=== PATIENT | male | born 1960 | race Caucasian/White ===

== ENCOUNTER 2019-01-31 10:27 | Observation (INO) ==
[2019-01-31 11:28] LABS: Basophils % 0.6 % (0.0-0.8); Eosinophils # 0.1 10*3/uL (0.0-0.87); Eosinophils % 1.9 % (0.00-10.9); Hematocrit 36.3 VOL% (42.0-52.0); Hemoglobin 11.8 GM/DL (14.0-18.0); Immature Granulocytes % 0.1 %; Immature Granulocytes Absolute 0.01 #; Lymphocytes % 14.1 % (21.2-54.2); Mean Corpuscular HGB Conc 32.5 GM/DL (32-36); Mean Corpuscular Volume 86.8 FL (87-102); Mean Platelet Volume 10.8 FL (9.6-12.0); Monocytes % 8.6 % (1.7-12.7); Neutrophils % 74.7 % (38.7-73.9); Platelet Count 149 T/CUMM (130-400); Red Blood Count 4.18 MC/CUMM (3.8-5.5); Red Cell Distribution Width 12.8 % (9.3-17.3); White Blood Count 6.9 T/CUMM (4-12)
[2019-01-31 11:47] LABS: Albumin 2.6 G/DL (3.4-5.0); Bilirubin,Total 0.6 MG/DL (0.2-1.0); Calcium 8.7 MG/DL (8.5-10.1); Total Protein 6.6 G/DL (6.4-8.3)
[2019-01-31 12:04] LABS: Apearance,Urine CLEAR (Clear); Bilirubin,Urine Negative (Negative); Blood, Urine Moderate mg/dL (Negative); Glucose,Urine (UA) Negative (Negative); Ketones,Urine Negative (Negative); Mucus,Urine Occasional /LPF (Occasional); Nitrite,Urine Negative (Negative); Protein,Urine 100 MG/DL; RBC,Urine 1 /HPF (0-4); Sperm,Urine Occasional /HPF (Negative); Squamous Epithelial Cell,Urine Occasional /HPF (0-10); Urine Color Yellow (Yellow); Urine Specific Gravity 1.014 (1.001-1.035); Urine Urobilinogen < 2.0 EU/DL (0.2-1.0); WBC,Urine <1 /HPF (0-6)
[2019-01-31] MEDS ORDERED: ACETAMINOPHEN 325 MG TABLET PO PRN (13:20)
[2019-01-31] MEDS ORDERED: FUROSEMIDE 40 MG/4 ML VIAL IV STA (13:20)
[2019-01-31] MEDS ORDERED: ONDANSETRON 4 MG/2 ML VIAL IV PRN (13:20)
[2019-01-31 14:06] LABS: PT Patient Result 10.8 SECS (9.6-12.2)
[2019-01-31] MEDS ORDERED: ALBUMIN 25% 12.5 GM in PREMIX 1 EACH IV ONE (15:07)
[2019-01-31] MEDS ORDERED: ALBUMIN 25% 12.5 GM/50 ML VIAL IV ONE (15:08)
[2019-01-31] MEDS: SPIRONOLACTONE 50 MG TABLET PO SCH (20:51)
[2019-01-31] MEDS: glipiZIDE 5 MG TABLET PO SCH (20:52)
[2019-01-31] MEDS: GABAPENTIN 300 MG CAPSULE PO SCH (20:55)
[2019-01-31] MEDS: DOCUSATE SODIUM 100 MG CAPSULE PO SCH (20:55)
[2019-01-31] MEDS: FUROSEMIDE 20 MG TABLET PO SCH (20:55)
[2019-01-31] MEDS ORDERED: ATORVASTATIN 20 MG TABLET PO SCH (21:00)
[2019-01-31] MEDS ORDERED: LOSARTAN 25 MG TABLET PO SCH (21:00)
[2019-01-31] MEDS ORDERED: ASPIRIN 325 MG TABLET PO SCH (21:00)
[2019-01-31] MEDS ORDERED: VENLAFAXINE 75 MG TABLET PO SCH (21:00)
[2019-02-01 05:08] LABS: Basophils # 0.1 10*3/uL (0.0-0.2); Basophils % 0.7 % (0.0-0.8); Eosinophils # 0.2 10*3/uL (0.0-0.87); Eosinophils % 2.9 % (0.00-10.9); Hematocrit 35.4 VOL% (42.0-52.0); Hemoglobin 11.6 GM/DL (14.0-18.0); Immature Granulocytes % 0.3 %; Immature Granulocytes Absolute 0.02 #; Lymphocytes # 1.2 10*3/uL (1.4-4.0); Lymphocytes % 17.4 % (21.2-54.2); Mean Corpuscular HGB Conc 32.8 GM/DL (32-36); Mean Corpuscular Volume 86.1 FL (87-102); Mean Platelet Volume 10.5 FL (9.6-12.0); Monocytes % 11.4 % (1.7-12.7); Neutrophils % 67.3 % (38.7-73.9); Platelet Count 151 T/CUMM (130-400); Red Blood Count 4.11 MC/CUMM (3.8-5.5); Red Cell Distribution Width 12.4 % (9.3-17.3)
[2019-02-01 05:34] LABS: Calcium 8.3 MG/DL (8.5-10.1); Osmolality,Calculated 289.1 MOS/KG (273-304)
[2019-02-01 07:56] VITALS: BP 167/98
[2019-02-01] MEDS: FUROSEMIDE 20 MG TABLET PO SCH (08:20)
[2019-02-01] MEDS: GABAPENTIN 300 MG CAPSULE PO SCH (08:20)
[2019-02-01] MEDS: DOCUSATE SODIUM 100 MG CAPSULE PO SCH (08:21)
[2019-02-01] MEDS: glipiZIDE 5 MG TABLET PO SCH (08:21)
[2019-02-01] MEDS: SPIRONOLACTONE 50 MG TABLET PO SCH (08:21)
[2019-02-01] MEDS ORDERED: PANTOPRAZOLE 40 MG TABLET PO SCH (09:00)
== END 2019-02-01 09:02 | disposition home or self-care (01) ==
LOC: N.ED 10:27 → N.EDINP 10:27 → N.2W 15:22
PROVIDERS: ADMIT Family Medicine; ATTEND Family Medicine

== ENCOUNTER 2019-10-08 18:13 | Inpatient (IN) ==
[2019-10-08] MEDS ORDERED: PANTOPRAZOLE 40 MG VIAL IV STA (20:36)
[2019-10-08] MEDS ORDERED: ONDANSETRON 4 MG/2 ML VIAL IV STA (20:36)
[2019-10-08] MEDS ORDERED: FUROSEMIDE 40 MG/4 ML VIAL IV STA (20:37)
[2019-10-08 21:07] LABS: Basophils # 0.1 10*3/uL (0.0-0.2); Basophils % 0.5 % (0.0-0.8); Eosinophils # 0.2 10*3/uL (0.0-0.87); Eosinophils % 2.4 % (0.00-10.9); Hematocrit 39.9 VOL% (42.0-52.0); Immature Granulocytes % 0.4 %; Immature Granulocytes Absolute 0.04 #; Lymphocytes % 9.7 % (21.2-54.2); Mean Corpuscular HGB Conc 32.6 GM/DL (32-36); Mean Corpuscular Volume 83.3 FL (87-102); Mean Platelet Volume 9.5 FL (9.6-12.0); Platelet Count 165 T/CUMM (130-400); Red Blood Count 4.79 MC/CUMM (3.8-5.5); Red Cell Distribution Width 14.6 % (9.3-17.3); White Blood Count 10.2 T/CUMM (4-12)
[2019-10-08 21:27] LABS: Alanine Aminotransferase 60 U/L (16-61); Albumin 2.2 G/DL (3.4-5.0); Alkaline Phosphatase 170 U/L (45-117); Amylase 83 U/L (25-115); Aspartate Amino Transferase 52 U/L (0-37); Blood Urea Nitrogen 28 MG/DL (7-18); Calcium 7.9 MG/DL (8.5-10.1); Estimated Glom Filtration Rate 55 ML/MIN; Glucose 295 MG/DL (74-106); Osmolality,Calculated 293.5 MOS/KG (273-304); Total Protein 4.9 G/DL (6.4-8.3)
[2019-10-08] MEDS ORDERED: PIPERACILLIN/TAZOBACTAM 3,375 MG in SODIUM CHLORIDE 0.9% 100 ML IV STA (22:49)
[2019-10-08] MEDS ORDERED: ZALEPLON 5 MG CAPSULE PO PRN (22:50)
[2019-10-08] MEDS ORDERED: DEXTROSE 50% 25 GM/50 ML VIAL IV PRN (22:50)
[2019-10-08] MEDS ORDERED: ONDANSETRON 4 MG/2 ML VIAL IV PRN (22:50)
[2019-10-08] MEDS ORDERED: ACETAMINOPHEN 325 MG TABLET PO PRN (22:50)
[2019-10-08] MEDS ORDERED: DOCUSATE SODIUM 100 MG CAPSULE PO PRN (22:50)
[2019-10-08] MEDS ORDERED: diphenhydrAMINE CAP 25 MG CAPSULE PO PRN (22:50)
[2019-10-08] MEDS ORDERED: ALUMINUM/MAGNES/SIMETH MAX STR 30 ML UDCUP PO PRN (22:50)
[2019-10-08] MEDS ORDERED: PROMETHAZINE 25 MG TABLET PO PRN (22:50)
[2019-10-08] MEDS ORDERED: hydrALAZINE 20 MG/1 ML VIAL IV PRN (22:50)
[2019-10-08] MEDS ORDERED: GLUCAGON 1 MG VIAL IM PRN (22:50)
[2019-10-08] MEDS ORDERED: NICOTINE 21 MG/24 HR PATCH TRANSDERM PRN (22:50)
[2019-10-08] MEDS ORDERED: guaiFENesin/DM ER 600-30 MG TABLET PO PRN (22:50)
[2019-10-08] MEDS ORDERED: ALBUTEROL 2.5 MG/3 ML NEB RESP TX PRN (22:50)
[2019-10-08 23:02] LABS: Apearance,Urine CLEAR (Clear); Bilirubin,Urine Negative (Negative); Blood, Urine Moderate mg/dL (Negative); Glucose,Urine (UA) >=500 mg/dL (Negative); Hyaline Casts,Urine 1 /LPF (0-3); Ketones,Urine Negative (Negative); Mucus,Urine Occasional /LPF (Occasional); Nitrite,Urine Negative (Negative); Protein,Urine Negative; RBC,Urine 20 /HPF (0-4); Squamous Epithelial Cell,Urine Occasional /HPF (0-10); Urine Color Yellow (Yellow); WBC,Urine 1 /HPF (0-6)
[2019-10-09] MEDS: LACTULOSE 20 GM/30 ML UDCUP PO SCH ×7 (01:28→21:02)
[2019-10-09 02:19] LABS: Basophils # 0.1 10*3/uL (0.0-0.2); Basophils % 0.7 % (0.0-0.8); Eosinophils # 0.3 10*3/uL (0.0-0.87); Eosinophils % 2.8 % (0.00-10.9); Hematocrit 37.3 VOL% (42.0-52.0); Hemoglobin 12.1 GM/DL (14.0-18.0); Immature Granulocytes % 0.3 %; Immature Granulocytes Absolute 0.03 #; Lymphocytes # 1.4 10*3/uL (1.4-4.0); Lymphocytes % 12.7 % (21.2-54.2); Mean Corpuscular HGB Conc 32.4 GM/DL (32-36); Mean Corpuscular Volume 84.6 FL (87-102); Mean Platelet Volume 9.8 FL (9.6-12.0); Monocytes % 12.4 % (1.7-12.7); Neutrophils % 71.1 % (38.7-73.9); Platelet Count 144 T/CUMM (130-400); Red Blood Count 4.41 MC/CUMM (3.8-5.5); Red Cell Distribution Width 14.6 % (9.3-17.3); White Blood Count 10.7 T/CUMM (4-12)
[2019-10-09 02:52] LABS: Bilirubin,Total 1.1 MG/DL (0.2-1.0); Calcium 8.1 MG/DL (8.5-10.1); Osmolality,Calculated 287.7 MOS/KG (273-304); Total Protein 5.2 G/DL (6.4-8.3)
[2019-10-09] MEDS: INSULIN LISPRO 100 UNIT/ML SUBCUT SCH ×4 (08:30→22:14)
[2019-10-09] MEDS ORDERED: FUROSEMIDE 80 MG TABLET PO SCH (09:00)
[2019-10-09] MEDS: ENOXAPARIN 40 MG/0.4 ML SYRINGE SUBCUT SCH (10:16)
[2019-10-09] MEDS: cefTRIAXone 1,000 MG in SYRINGE 1 EACH IV SCH (10:18)
[2019-10-09] MEDS: metroNIDAZOLE INJ 250 MG in IV BAG 1 EACH IV SCH ×2 (10:30→17:02)
[2019-10-09 14:22] LABS: CKMB % 4.3 %; Troponin I 0.295 NG/ML (0.00-0.045)
[2019-10-09] MEDS: glyBURIDE 2.5 MG TABLET PO SCH (17:02)
[2019-10-09] MEDS: VENLAFAXINE 75 MG TABLET PO SCH (17:02)
[2019-10-10] MEDS: metroNIDAZOLE INJ 250 MG in IV BAG 1 EACH IV SCH (00:32)
[2019-10-10] MEDS: LACTULOSE 20 GM/30 ML UDCUP PO SCH ×5 (01:24→14:31)
[2019-10-10 05:47] LABS: Basophils # 0.1 10*3/uL (0.0-0.2); Basophils % 0.9 % (0.0-0.8); Eosinophils # 0.3 10*3/uL (0.0-0.87); Eosinophils % 3.2 % (0.00-10.9); Hematocrit 39.2 VOL% (42.0-52.0); Immature Granulocytes % 0.3 %; Immature Granulocytes Absolute 0.03 #; Lymphocytes # 1.2 10*3/uL (1.4-4.0); Lymphocytes % 12.2 % (21.2-54.2); Mean Corpuscular HGB Conc 33.2 GM/DL (32-36); Mean Corpuscular Volume 83.4 FL (87-102); Mean Platelet Volume 10.3 FL (9.6-12.0); Monocytes % 10.8 % (1.7-12.7); Neutrophils % 72.6 % (38.7-73.9); Platelet Count 172 T/CUMM (130-400); Red Cell Distribution Width 14.5 % (9.3-17.3); White Blood Count 9.5 T/CUMM (4-12)
[2019-10-10 06:09] LABS: Albumin 1.9 G/DL (3.4-5.0); Bilirubin,Total 1.7 MG/DL (0.2-1.0); Calcium 8.1 MG/DL (8.5-10.1); Osmolality,Calculated 279.7 MOS/KG (273-304); Total Protein 5.1 G/DL (6.4-8.3)
[2019-10-10] MEDS: glyBURIDE 2.5 MG TABLET PO SCH ×2 (09:25→17:05)
[2019-10-10] MEDS: ENOXAPARIN 40 MG/0.4 ML SYRINGE SUBCUT SCH (09:25)
[2019-10-10] MEDS: VENLAFAXINE 75 MG TABLET PO SCH (09:25)
[2019-10-10] MEDS: cefTRIAXone 1,000 MG in SYRINGE 1 EACH IV SCH (09:26)
[2019-10-10] MEDS: INSULIN LISPRO 100 UNIT/ML SUBCUT SCH ×4 (09:34→20:55)
[2019-10-10] MEDS ORDERED: ACETAMINOPHEN 500 MG TABLET PO PRN (13:37)
[2019-10-10] MEDS: RIFAXIMIN 550 MG TABLET PO SCH (20:54)
[2019-10-11] MEDS: LACTULOSE 20 GM/30 ML UDCUP PO SCH ×3 (02:22→17:13)
[2019-10-11 05:48] LABS: Basophils # 0.1 10*3/uL (0.0-0.2); Basophils % 1.1 % (0.0-0.8); Eosinophils # 0.4 10*3/uL (0.0-0.87); Eosinophils % 5.8 % (0.00-10.9); Hematocrit 32.5 VOL% (42.0-52.0); Hemoglobin 10.6 GM/DL (14.0-18.0); Immature Granulocytes % 0.6 %; Immature Granulocytes Absolute 0.04 #; Lymphocytes # 1.2 10*3/uL (1.4-4.0); Mean Corpuscular HGB Conc 32.6 GM/DL (32-36); Mean Corpuscular Volume 83.5 FL (87-102); Monocytes % 13.5 % (1.7-12.7); Platelet Count 131 T/CUMM (130-400); Red Blood Count 3.89 MC/CUMM (3.8-5.5); Red Cell Distribution Width 14.5 % (9.3-17.3); White Blood Count 7.3 T/CUMM (4-12)
[2019-10-11 06:15] LABS: Albumin 1.5 G/DL (3.4-5.0); Bilirubin,Total 0.8 MG/DL (0.2-1.0); Calcium 7.4 MG/DL (8.5-10.1); Osmolality,Calculated 275.8 MOS/KG (273-304)
[2019-10-11] MEDS: glyBURIDE 2.5 MG TABLET PO SCH ×2 (09:15→16:25)
[2019-10-11] MEDS: RIFAXIMIN 550 MG TABLET PO SCH ×2 (09:16→20:43)
[2019-10-11] MEDS: cefTRIAXone 1,000 MG in SYRINGE 1 EACH IV SCH (09:16)
[2019-10-11] MEDS: ENOXAPARIN 40 MG/0.4 ML SYRINGE SUBCUT SCH (09:17)
[2019-10-11] MEDS: INSULIN LISPRO 100 UNIT/ML SUBCUT SCH ×4 (09:17→20:43)
[2019-10-11] MEDS: VENLAFAXINE 75 MG TABLET PO SCH (09:47)
[2019-10-11] MEDS: VANCOMYCIN INJ 1,500 MG in SODIUM CHLORIDE 0.9% 500 ML IV SCH (16:33)
[2019-10-12] MEDS: LACTULOSE 20 GM/30 ML UDCUP PO SCH (06:28)
[2019-10-12 07:05] LABS: Basophils # 0.1 10*3/uL (0.0-0.2); Basophils % 0.8 % (0.0-0.8); Eosinophils # 0.5 10*3/uL (0.0-0.87); Eosinophils % 4.4 % (0.00-10.9); Hematocrit 38.6 VOL% (42.0-52.0); Hemoglobin 12.8 GM/DL (14.0-18.0); Immature Granulocytes % 0.4 %; Immature Granulocytes Absolute 0.05 #; Lymphocytes # 1.2 10*3/uL (1.4-4.0); Lymphocytes % 10.6 % (21.2-54.2); Mean Corpuscular HGB Conc 33.2 GM/DL (32-36); Mean Corpuscular Volume 84.3 FL (87-102); Mean Platelet Volume 10.1 FL (9.6-12.0); Monocytes % 8.7 % (1.7-12.7); Neutrophils % 75.1 % (38.7-73.9); Platelet Count 173 T/CUMM (130-400); Red Blood Count 4.58 MC/CUMM (3.8-5.5); Red Cell Distribution Width 14.6 % (9.3-17.3); White Blood Count 11.3 T/CUMM (4-12)
[2019-10-12 07:31] LABS: Albumin 1.8 G/DL (3.4-5.0); Bilirubin,Total 0.7 MG/DL (0.2-1.0); Calcium 8.4 MG/DL (8.5-10.1); Osmolality,Calculated 272.1 MOS/KG (273-304); Total Protein 5.2 G/DL (6.4-8.3)
[2019-10-12] MEDS: INSULIN LISPRO 100 UNIT/ML SUBCUT SCH ×2 (09:27→13:03)
[2019-10-12] MEDS: ENOXAPARIN 40 MG/0.4 ML SYRINGE SUBCUT SCH (09:28)
[2019-10-12] MEDS: cefTRIAXone 1,000 MG in SYRINGE 1 EACH IV SCH (09:28)
[2019-10-12] MEDS: VENLAFAXINE 75 MG TABLET PO SCH (09:28)
[2019-10-12] MEDS: glyBURIDE 2.5 MG TABLET PO SCH (09:28)
[2019-10-12] MEDS: RIFAXIMIN 550 MG TABLET PO SCH (09:28)
[2019-10-12] MEDS: VANCOMYCIN INJ 1,500 MG in SODIUM CHLORIDE 0.9% 500 ML IV SCH (10:18)
[2019-10-12 11:20] VITALS: BP 117/69
[2019-10-12] MEDS ORDERED: glyBURIDE 2.5 MG TABLET PO SCH (13:36)
== END 2019-10-12 15:53 | disposition home or self-care (01) | DRG 432 ==
LOC: N.ED 18:13 → N.EDINP 18:13 → N.TELEN 10-09 13:15
PROVIDERS: ADMIT Hospitalist; ATTEND Hospitalist

== ENCOUNTER 2019-11-13 17:14 | Observation (INO) ==
[2019-11-13 17:47] LABS: Basophils # 0.1 10*3/uL (0.0-0.2); Basophils % 1.2 % (0.0-0.8); Eosinophils # 1.7 10*3/uL (0.0-0.87); Hematocrit 34.6 VOL% (42.0-52.0); Hemoglobin 11.2 GM/DL (14.0-18.0); Immature Granulocytes % 0.3 %; Immature Granulocytes Absolute 0.03 #; Lymphocytes % 10.3 % (21.2-54.2); Mean Corpuscular HGB Conc 32.4 GM/DL (32-36); Mean Corpuscular Volume 85.2 FL (87-102); Mean Platelet Volume 9.5 FL (9.6-12.0); Monocytes % 12.7 % (1.7-12.7); Neutrophils % 58.5 % (38.7-73.9); Platelet Count 175 T/CUMM (130-400); Red Blood Count 4.06 MC/CUMM (3.8-5.5); Red Cell Distribution Width 15.8 % (9.3-17.3); White Blood Count 9.7 T/CUMM (4-12)
[2019-11-13 17:59] LABS: Albumin 1.6 G/DL (3.4-5.0); Bilirubin,Total 1.4 MG/DL (0.2-1.0); Calcium 7.9 MG/DL (8.5-10.1); Osmolality,Calculated 290.5 MOS/KG (273-304); Total Protein 5.3 G/DL (6.4-8.3)
[2019-11-13 18:16] LABS: Eosinophils 16 % (0-10); Lymphocytes 9 % (20-55); Platelet Estimate Normal; Segmented Neutrophils 63 % (50-85); Total Cells Counted 100
[2019-11-13] MEDS ORDERED: FUROSEMIDE 40 MG/4 ML VIAL IV STA (20:28)
[2019-11-13] MEDS ORDERED: ALUM/MAG/SIMETH/LIDO VISC 1:1 30 ML BOTTLE PO STA (20:28)
[2019-11-13] MEDS ORDERED: NITROGLYCERIN 2% OINT 1 INCH/GM PACK TOP STA (20:28)
[2019-11-13] MEDS ORDERED: MORPHINE 4 MG/1 ML VIAL IV STA (20:28)
[2019-11-13] MEDS ORDERED: ONDANSETRON 4 MG/2 ML VIAL IV STA (20:28)
[2019-11-13] MEDS ORDERED: ASPIRIN 325 MG TABLET PO STA (20:28)
[2019-11-13] MEDS ORDERED: MORPHINE 4 MG/1 ML VIAL IV PRN (21:21)
[2019-11-13] MEDS ORDERED: hydrALAZINE 20 MG/1 ML VIAL IV PRN (21:21)
[2019-11-13] MEDS ORDERED: DEXTROSE 50% 25 GM/50 ML VIAL IV PRN (21:21)
[2019-11-13] MEDS ORDERED: GLUCAGON 1 MG VIAL IM PRN (21:21)
[2019-11-13 22:25] LABS: Risk Ratio 4.34; Thyroid Stimulating Hormone 5.18 uIU/ml (0.358-3.74); VLDL CHOLESTEROL 42.2 MG/DL
[2019-11-13] MEDS: INSULIN LISPRO 100 UNIT/ML SUBCUT SCH (22:30)
[2019-11-13] MEDS ORDERED: NITROGLYCERIN SL 0.4 MG TABLET SL PRN (23:11)
[2019-11-14] MEDS: LACTULOSE 20 GM/30 ML UDCUP PO SCH ×2 (01:00→12:30)
[2019-11-14 04:58] LABS: Basophils # 0.1 10*3/uL (0.0-0.2); Basophils % 1.5 % (0.0-0.8); Eosinophils # 2.3 10*3/uL (0.0-0.87); Eosinophils % 23.9 % (0.00-10.9); Hematocrit 32.6 VOL% (42.0-52.0); Hemoglobin 10.5 GM/DL (14.0-18.0); Immature Granulocytes % 0.3 %; Immature Granulocytes Absolute 0.03 #; Lymphocytes # 1.3 10*3/uL (1.4-4.0); Lymphocytes % 13.2 % (21.2-54.2); Mean Corpuscular HGB Conc 32.2 GM/DL (32-36); Mean Corpuscular Volume 87.4 FL (87-102); Mean Platelet Volume 9.8 FL (9.6-12.0); Monocytes % 14.8 % (1.7-12.7); Neutrophils % 46.3 % (38.7-73.9); Platelet Count 140 T/CUMM (130-400); Red Blood Count 3.73 MC/CUMM (3.8-5.5); Red Cell Distribution Width 15.7 % (9.3-17.3); White Blood Count 9.6 T/CUMM (4-12)
[2019-11-14 05:12] LABS: Albumin 1.4 G/DL (3.4-5.0); Bilirubin,Total 1.4 MG/DL (0.2-1.0); Calcium 7.9 MG/DL (8.5-10.1); Osmolality,Calculated 291.4 MOS/KG (273-304); Total Protein 4.3 G/DL (6.4-8.3)
[2019-11-14 05:16] LABS: Eosinophils 30 % (0-10); Lymphocytes 12 % (20-55); Platelet Estimate Adequate; Segmented Neutrophils 49 % (50-85); Total Cells Counted 100
[2019-11-14 05:17] LABS: Hypochromasia 1+; Microcytosis Slight; Ovalocytes Slight
[2019-11-14] MEDS ORDERED: ONDANSETRON 4 MG/2 ML VIAL ONE (07:27)
[2019-11-14] MEDS ORDERED: ALBUMIN 25% 12.5 GM/50 ML VIAL IV ONE (08:57)
[2019-11-14] MEDS ORDERED: PANTOPRAZOLE 40 MG TABLET PO SCH (09:00)
[2019-11-14] MEDS ORDERED: RIFAXIMIN 550 MG TABLET PO SCH (09:00)
[2019-11-14] MEDS ORDERED: SPIRONOLACTONE 50 MG TABLET PO SCH (09:00)
[2019-11-14] MEDS ORDERED: TISSUE ADHESIVE 1 EACH APPLICATOR TOP ONE (09:02)
[2019-11-14] MEDS ORDERED: ALBUMIN 25% 12.5 GM in PREMIX 1 EACH IV ONE (09:07)
[2019-11-14] MEDS: INSULIN LISPRO 100 UNIT/ML SUBCUT SCH ×3 (09:51→16:39)
[2019-11-14] MEDS: FUROSEMIDE 40 MG/4 ML VIAL IV SCH ×2 (09:55→15:15)
[2019-11-14] MEDS: METOPROLOL TARTRATE 25 MG TABLET PO SCH ×2 (10:08)
[2019-11-14] MEDS ORDERED: ENOXAPARIN 40 MG/0.4 ML SYRINGE SUBCUT SCH (13:00)
[2019-11-14] MEDS ORDERED: GABAPENTIN 100 MG CAPSULE PO SCH (15:00)
[2019-11-14 16:03] VITALS: BP 110/67
== END 2019-11-14 16:42 | disposition home or self-care (01) ==
LOC: N.EDINP 17:14 → N.ED 17:14 → N.TELES 11-14 13:00
PROVIDERS: ADMIT Family Medicine; ATTEND Family Medicine

== ENCOUNTER 2019-11-15 22:10 | Observation (INO) ==
[2019-11-16 01:33] LABS: Basophils # 0.1 10*3/uL (0.0-0.2); Basophils % 0.8 % (0.0-0.8); Eosinophils # 1.2 10*3/uL (0.0-0.87); Eosinophils % 12.8 % (0.00-10.9); Hematocrit 32.8 VOL% (42.0-52.0); Hemoglobin 10.9 GM/DL (14.0-18.0); Immature Granulocytes % 0.4 %; Immature Granulocytes Absolute 0.04 #; Lymphocytes # 0.8 10*3/uL (1.4-4.0); Lymphocytes % 8.5 % (21.2-54.2); Mean Corpuscular HGB Conc 33.2 GM/DL (32-36); Mean Corpuscular Volume 84.3 FL (87-102); Mean Platelet Volume 9.5 FL (9.6-12.0); Monocytes % 13.5 % (1.7-12.7); Platelet Count 147 T/CUMM (130-400); Red Blood Count 3.89 MC/CUMM (3.8-5.5); Red Cell Distribution Width 15.7 % (9.3-17.3); White Blood Count 9.4 T/CUMM (4-12)
[2019-11-16 01:43] LABS: INR 1.1; PT Patient Result 11.8 SECS (9.8-11.9); Partial Thromboplastin Time 31.9 SECS (23.9-33.8)
[2019-11-16 01:54] LABS: Albumin 1.6 G/DL (3.4-5.0); Bilirubin,Total 1.4 MG/DL (0.2-1.0); Calcium 7.8 MG/DL (8.5-10.1); Total Protein 5.1 G/DL (6.4-8.3)
[2019-11-16 02:02] LABS: Anisocytosis 1+; Band Neutrophils 2 % (0-10); Eosinophils 15 % (0-10); Lymphocytes 14 % (20-55); Segmented Neutrophils 63 % (50-85); Total Cells Counted 100
[2019-11-16 02:03] LABS: Platelet Estimate Normal
[2019-11-16 02:09] VITALS: BP 123/58
[2019-11-16] MEDS ORDERED: LACTULOSE 20 GM/30 ML UDCUP PO STA (02:43)
[2019-11-16] MEDS ORDERED: DEXTROSE 50% 25 GM/50 ML VIAL IV PRN ×2 (03:08)
[2019-11-16] MEDS ORDERED: GLUCAGON 1 MG VIAL IM PRN ×2 (03:08)
[2019-11-16] MEDS: LACTULOSE 20 GM/30 ML UDCUP PO SCH ×5 (06:12→17:06)
[2019-11-16] MEDS: INSULIN REGULAR 100 UNIT/ML SUBCUT SCH ×3 (07:52→17:05)
[2019-11-16 08:18] LABS: Bilirubin,Urine Negative (Negative); Blood, Urine Small mg/dL (Negative); Glucose,Urine (UA) Negative (Negative); Ketones,Urine Negative (Negative); Nitrite,Urine Negative (Negative); Protein,Urine Negative; RBC,Urine 7 /HPF (0-4); Squamous Epithelial Cell,Urine Occasional /HPF (0-10); Urine Appearance CLEAR (Clear); Urine Color Yellow (Yellow); Urine Specific Gravity 1.013 (1.001-1.035); WBC,Urine <1 /HPF (0-6)
[2019-11-16 08:25] LABS: Barbiturates Screen,Urine Negative (Negative); Benzodiazepines Screen,Urine Negative (Negative); Cannabinoid Screen,Urine Negative (Negative); Opiate Screen,Urine Positive (Negative); Phencyclidine Screen,Urine Negative (Negative)
[2019-11-16 08:52] LABS: Calcium 7.8 MG/DL (8.5-10.1); Osmolality,Calculated 287.8 MOS/KG (273-304)
[2019-11-17] MEDS: INSULIN REGULAR 100 UNIT/ML SUBCUT SCH ×2 (00:22→08:34)
[2019-11-17] MEDS: LACTULOSE 20 GM/30 ML UDCUP PO SCH ×2 (00:24→06:36)
[2019-11-17 05:39] LABS: Basophils # 0.1 10*3/uL (0.0-0.2); Basophils % 1.3 % (0.0-0.8); Eosinophils # 1.1 10*3/uL (0.0-0.87); Eosinophils % 12.7 % (0.00-10.9); Hematocrit 31.9 VOL% (42.0-52.0); Hemoglobin 10.4 GM/DL (14.0-18.0); Immature Granulocytes % 0.5 %; Immature Granulocytes Absolute 0.04 #; Lymphocytes # 1.1 10*3/uL (1.4-4.0); Lymphocytes % 12.5 % (21.2-54.2); Mean Corpuscular HGB Conc 32.6 GM/DL (32-36); Mean Corpuscular Volume 84.6 FL (87-102); Mean Platelet Volume 10.1 FL (9.6-12.0); Monocytes % 15.6 % (1.7-12.7); Neutrophils % 57.4 % (38.7-73.9); Platelet Count 167 T/CUMM (130-400); Red Blood Count 3.77 MC/CUMM (3.8-5.5); Red Cell Distribution Width 15.9 % (9.3-17.3); White Blood Count 8.6 T/CUMM (4-12)
[2019-11-17 05:54] LABS: Calcium 7.9 MG/DL (8.5-10.1); Osmolality,Calculated 298.1 MOS/KG (273-304)
[2019-11-17 05:56] LABS: Albumin 1.3 G/DL (3.4-5.0); Bilirubin,Total 1.4 MG/DL (0.2-1.0); Calcium 7.9 MG/DL (8.5-10.1); Osmolality,Calculated 293.4 MOS/KG (273-304); Total Protein 4.6 G/DL (6.4-8.3)
[2019-11-17 06:30] LABS: Lymphocytes 5 % (20-55); Total Cells Counted 100
[2019-11-17 06:34] LABS: Eosinophils 8 % (0-10); Hypochromasia 2+; Platelet Estimate Adequate; Polychromasia Slight; Segmented Neutrophils 76 % (50-85)
== END 2019-11-17 10:59 | disposition home or self-care (01) ==
LOC: N.ED 22:10 → N.EDINP 22:10 → N.ICU 11-16 04:39
PROVIDERS: ADMIT Family Medicine; ATTEND Family Medicine

== ENCOUNTER 2019-12-02 10:12 | Inpatient (IN) ==
[2019-12-02] MEDS ORDERED: THIAMINE 200 MG/2 ML VIAL IV STA (10:30)
[2019-12-02] MEDS ORDERED: PANTOPRAZOLE 40 MG VIAL IV STA (10:31)
[2019-12-02 11:31] LABS: Basophils # 0.1 10*3/uL (0.0-0.2); Basophils % 1.1 % (0.0-0.8); Eosinophils # 0.5 10*3/uL (0.0-0.87); Eosinophils % 5.8 % (0.00-10.9); Hematocrit 34.1 VOL% (42.0-52.0); Hemoglobin 11.2 GM/DL (14.0-18.0); Immature Granulocytes % 0.4 %; Immature Granulocytes Absolute 0.03 #; Lymphocytes # 1.1 10*3/uL (1.4-4.0); Lymphocytes % 14.1 % (21.2-54.2); Mean Corpuscular HGB Conc 32.8 GM/DL (32-36); Mean Corpuscular Volume 85.7 FL (87-102); Mean Platelet Volume 9.6 FL (9.6-12.0); Monocytes % 9.4 % (1.7-12.7); Neutrophils % 69.2 % (38.7-73.9); Platelet Count 164 T/CUMM (130-400); Red Blood Count 3.98 MC/CUMM (3.8-5.5); Red Cell Distribution Width 15.3 % (9.3-17.3); White Blood Count 7.9 T/CUMM (4-12)
[2019-12-02 11:49] LABS: Albumin 1.6 G/DL (3.4-5.0); Bilirubin,Total 1.3 MG/DL (0.2-1.0); Calcium 8.1 MG/DL (8.5-10.1); Osmolality,Calculated 291.7 MOS/KG (273-304); Total Protein 5.5 G/DL (6.4-8.3)
[2019-12-02 11:52] LABS: INR 1.1; PT Patient Result 11.4 SECS (9.8-11.9); Partial Thromboplastin Time 29.7 SECS (23.9-33.8)
[2019-12-02 12:12] LABS: Bilirubin,Urine Negative (Negative); Blood, Urine Negative (Negative); Glucose,Urine (UA) >=500 mg/dL (Negative); Ketones,Urine Negative (Negative); Nitrite,Urine Negative (Negative); Protein,Urine Negative; RBC,Urine 1 /HPF (0-4); Squamous Epithelial Cell,Urine Occasional /HPF (0-10); Urine Appearance CLEAR (Clear); Urine Color Yellow (Yellow); Urine Specific Gravity 1.013 (1.001-1.035); WBC,Urine 1 /HPF (0-6)
[2019-12-02] MEDS ORDERED: DEXTROSE 50% 25 GM/50 ML VIAL IV PRN (13:15)
[2019-12-02] MEDS ORDERED: GLUCAGON 1 MG VIAL IM PRN (13:15)
[2019-12-02] MEDS ORDERED: ONDANSETRON 4 MG/2 ML VIAL IV PRN (13:15)
[2019-12-02] MEDS ORDERED: ACETAMINOPHEN 325 MG TABLET PO PRN (13:15)
[2019-12-02] MEDS: LACTULOSE 20 GM/30 ML UDCUP PO SCH (14:00)
[2019-12-02] MEDS: SPIRONOLACTONE 25 MG TABLET PO SCH ×2 (15:00→21:02)
[2019-12-02 15:04] LABS: Hematocrit 34.9 VOL% (42.0-52.0); Hemoglobin 11.5 GM/DL (14.0-18.0)
[2019-12-02] MEDS: INSULIN LISPRO 100 UNIT/ML SUBCUT SCH ×2 (16:50→21:01)
[2019-12-02 19:33] LABS: Hematocrit 34.2 VOL% (42.0-52.0); Hemoglobin 11.4 GM/DL (14.0-18.0)
[2019-12-02] MEDS: PANTOPRAZOLE 40 MG VIAL IV SCH (21:01)
[2019-12-02] MEDS: RIFAXIMIN 550 MG TABLET PO SCH ×2 (21:02→21:04)
[2019-12-03] MEDS: LACTULOSE 20 GM/30 ML UDCUP PO SCH ×4 (00:30→22:18)
[2019-12-03 01:39] LABS: Hematocrit 29.9 VOL% (42.0-52.0); Hemoglobin 9.9 GM/DL (14.0-18.0)
[2019-12-03 01:48] LABS: Albumin 1.3 G/DL (3.4-5.0); Calcium 7.8 MG/DL (8.5-10.1); Osmolality,Calculated 297.1 MOS/KG (273-304); Risk Ratio 4.41; Total Protein 4.7 G/DL (6.4-8.3); VLDL CHOLESTEROL 27.2 MG/DL
[2019-12-03 05:53] LABS: Basophils # 0.1 10*3/uL (0.0-0.2); Basophils % 1.8 % (0.0-0.8); Eosinophils # 0.9 10*3/uL (0.0-0.87); Eosinophils % 11.9 % (0.00-10.9); Hematocrit 31.1 VOL% (42.0-52.0); Hemoglobin 10.2 GM/DL (14.0-18.0); Immature Granulocytes % 0.3 %; Immature Granulocytes Absolute 0.02 #; Lymphocytes # 1.5 10*3/uL (1.4-4.0); Lymphocytes % 20.3 % (21.2-54.2); Mean Corpuscular HGB Conc 32.8 GM/DL (32-36); Mean Corpuscular Volume 85.4 FL (87-102); Mean Platelet Volume 9.9 FL (9.6-12.0); Monocytes % 12.5 % (1.7-12.7); Neutrophils % 53.2 % (38.7-73.9); Platelet Count 155 T/CUMM (130-400); Red Blood Count 3.64 MC/CUMM (3.8-5.5); Red Cell Distribution Width 15.4 % (9.3-17.3); White Blood Count 7.4 T/CUMM (4-12)
[2019-12-03 06:15] LABS: Eosinophils 17 % (0-10); Lymphocytes 14 % (20-55); Platelet Estimate Adequate; Segmented Neutrophils 65 % (50-85); Total Cells Counted 100
[2019-12-03 06:16] LABS: Hypochromasia 1+
[2019-12-03] MEDS ORDERED: LACTULOSE 320 GM/480 ML BOTTLE RECTAL ONE ×2 (06:54→07:30)
[2019-12-03 07:27] LABS: Bacteria,Urine Occasional /HPF (Few); Bilirubin,Urine Negative (Negative); Blood, Urine Small mg/dL (Negative); Glucose,Urine (UA) 50 mg/dL (Negative); Ketones,Urine Negative (Negative); Nitrite,Urine Negative (Negative); Protein,Urine Negative; RBC,Urine 1 /HPF (0-4); Urine Appearance CLEAR (Clear); Urine Color Yellow (Yellow); Urine Specific Gravity 1.014 (1.001-1.035); WBC,Urine 2 /HPF (0-6)
[2019-12-03] MEDS ORDERED: PANTOPRAZOLE 40 MG TABLET PO SCH (09:00)
[2019-12-03 09:09] LABS: Hematocrit 31.2 VOL% (42.0-52.0); Hemoglobin 10.2 GM/DL (14.0-18.0)
[2019-12-03] MEDS: PANTOPRAZOLE 40 MG VIAL IV SCH ×2 (09:17→22:21)
[2019-12-03] MEDS: INSULIN LISPRO 100 UNIT/ML SUBCUT SCH ×4 (09:17→22:26)
[2019-12-03] MEDS: VENLAFAXINE 75 MG TABLET PO SCH (09:18)
[2019-12-03] MEDS: METOPROLOL TARTRATE 25 MG TABLET PO SCH (09:18)
[2019-12-03] MEDS: RIFAXIMIN 550 MG TABLET PO SCH ×2 (09:18→22:20)
[2019-12-03] MEDS: FUROSEMIDE 40 MG TABLET PO SCH (09:18)
[2019-12-03] MEDS ORDERED: ALBUMIN 25% 12.5 GM/50 ML VIAL IV ONE (09:41)
[2019-12-03] MEDS ORDERED: ALBUMIN 25% 12.5 GM in PREMIX 1 EACH IV PRN (09:42)
[2019-12-03] MEDS ORDERED: ALBUMIN 25% 50 GM in PREMIX 1 EACH IV ONE (15:42)
[2019-12-03] MEDS: SPIRONOLACTONE 25 MG TABLET PO SCH ×3 (15:47→22:20)
[2019-12-03] MEDS: cefTRIAXone 1,000 MG in SYRINGE 1 EACH IV SCH (18:56)
[2019-12-03] MEDS: FLUCONAZOLE 100 MG TABLET PO SCH (18:56)
[2019-12-03] MEDS: TAMSULOSIN 0.4 MG CAPSULE PO SCH (22:20)
[2019-12-04] MEDS: LACTULOSE 20 GM/30 ML UDCUP PO SCH ×3 (05:42→17:09)
[2019-12-04 05:51] LABS: Basophils # 0.1 10*3/uL (0.0-0.2); Basophils % 1.1 % (0.0-0.8); Eosinophils # 0.6 10*3/uL (0.0-0.87); Eosinophils % 9.4 % (0.00-10.9); Hematocrit 29.2 VOL% (42.0-52.0); Hemoglobin 9.4 GM/DL (14.0-18.0); Immature Granulocytes % 0.3 %; Immature Granulocytes Absolute 0.02 #; Lymphocytes # 1.3 10*3/uL (1.4-4.0); Lymphocytes % 20.3 % (21.2-54.2); Mean Corpuscular HGB Conc 32.2 GM/DL (32-36); Mean Corpuscular Volume 87.4 FL (87-102); Mean Platelet Volume 10.2 FL (9.6-12.0); Monocytes % 14.7 % (1.7-12.7); Neutrophils % 54.2 % (38.7-73.9); Platelet Count 122 T/CUMM (130-400); Red Blood Count 3.34 MC/CUMM (3.8-5.5); Red Cell Distribution Width 15.4 % (9.3-17.3); White Blood Count 6.4 T/CUMM (4-12)
[2019-12-04 06:13] LABS: Eosinophils 11 % (0-10); Hypochromasia 1+; Lymphocytes 19 % (20-55); Segmented Neutrophils 63 % (50-85); Total Cells Counted 100
[2019-12-04 06:23] LABS: Calcium 7.9 MG/DL (8.5-10.1)
[2019-12-04 06:37] LABS: Albumin 1.6 G/DL (3.4-5.0); Bilirubin,Total 1.7 MG/DL (0.2-1.0); Total Protein 4.5 G/DL (6.4-8.3)
[2019-12-04] MEDS: PANTOPRAZOLE 40 MG VIAL IV SCH ×2 (09:54→22:30)
[2019-12-04] MEDS: INSULIN LISPRO 100 UNIT/ML SUBCUT SCH ×4 (09:54→23:30)
[2019-12-04] MEDS: LOSARTAN 25 MG TABLET PO SCH (09:55)
[2019-12-04] MEDS: SPIRONOLACTONE 25 MG TABLET PO SCH ×3 (09:55→22:31)
[2019-12-04] MEDS: FUROSEMIDE 40 MG TABLET PO SCH (09:55)
[2019-12-04] MEDS: FLUCONAZOLE 100 MG TABLET PO SCH (09:55)
[2019-12-04] MEDS: VENLAFAXINE 75 MG TABLET PO SCH (09:55)
[2019-12-04] MEDS: METOPROLOL TARTRATE 25 MG TABLET PO SCH (09:55)
[2019-12-04] MEDS: TAMSULOSIN 0.4 MG CAPSULE PO SCH ×2 (09:55→22:31)
[2019-12-04] MEDS: RIFAXIMIN 550 MG TABLET PO SCH ×2 (09:55→22:31)
[2019-12-04] MEDS: cefTRIAXone 1,000 MG in SYRINGE 1 EACH IV SCH (16:35)
[2019-12-04] MEDS ORDERED: LACTULOSE 20 GM/30 ML UDCUP PO SCH (17:00)
[2019-12-05] MEDS: LACTULOSE 20 GM/30 ML UDCUP PO SCH ×4 (01:21→23:08)
[2019-12-05 06:18] LABS: Basophils # 0.1 10*3/uL (0.0-0.2); Eosinophils # 0.6 10*3/uL (0.0-0.87); Eosinophils % 9.2 % (0.00-10.9); Hemoglobin 9.4 GM/DL (14.0-18.0); Immature Granulocytes % 0.3 %; Immature Granulocytes Absolute 0.02 #; Lymphocytes # 1.4 10*3/uL (1.4-4.0); Lymphocytes % 20.2 % (21.2-54.2); Mean Corpuscular HGB Conc 32.4 GM/DL (32-36); Mean Corpuscular Volume 87.3 FL (87-102); Mean Platelet Volume 10.6 FL (9.6-12.0); Neutrophils % 56.3 % (38.7-73.9); Platelet Count 127 T/CUMM (130-400); Red Blood Count 3.32 MC/CUMM (3.8-5.5); Red Cell Distribution Width 15.2 % (9.3-17.3); White Blood Count 6.8 T/CUMM (4-12)
[2019-12-05 06:59] LABS: Albumin 1.3 G/DL (3.4-5.0); Bilirubin,Total 0.8 MG/DL (0.2-1.0); Calcium 7.3 MG/DL (8.5-10.1); Calcium 7.4 MG/DL (8.5-10.1); Osmolality,Calculated 288.5 MOS/KG (273-304); Osmolality,Calculated 290.5 MOS/KG (273-304); Total Protein 4.1 G/DL (6.4-8.3)
[2019-12-05 07:05] LABS: Band Neutrophils 1 % (0-10); Eosinophils 12 % (0-10); Hypochromasia 1+; Lymphocytes 20 % (20-55); Microcytosis Slight; Ovalocytes Slight; Platelet Estimate Normal; Segmented Neutrophils 60 % (50-85); Total Cells Counted 100
[2019-12-05] MEDS: PANTOPRAZOLE 40 MG VIAL IV SCH (08:06)
[2019-12-05] MEDS: RIFAXIMIN 550 MG TABLET PO SCH ×2 (08:07→21:10)
[2019-12-05] MEDS: VENLAFAXINE 75 MG TABLET PO SCH (08:07)
[2019-12-05] MEDS: FLUCONAZOLE 100 MG TABLET PO SCH (08:07)
[2019-12-05] MEDS: METOPROLOL TARTRATE 25 MG TABLET PO SCH (08:08)
[2019-12-05] MEDS: FUROSEMIDE 40 MG TABLET PO SCH (08:08)
[2019-12-05] MEDS: TAMSULOSIN 0.4 MG CAPSULE PO SCH ×2 (08:09→21:10)
[2019-12-05] MEDS: SPIRONOLACTONE 25 MG TABLET PO SCH (08:09)
[2019-12-05] MEDS: INSULIN LISPRO 100 UNIT/ML SUBCUT SCH ×4 (08:14→21:09)
[2019-12-05] MEDS: cefTRIAXone 1,000 MG in SYRINGE 1 EACH IV SCH (17:53)
[2019-12-05] MEDS: FAMOTIDINE 20 MG TABLET PO SCH (21:10)
[2019-12-06] MEDS: LACTULOSE 20 GM/30 ML UDCUP PO SCH (05:08)
[2019-12-06 07:37] VITALS: BP 107/65
[2019-12-06] MEDS ORDERED: SPIRONOLACTONE 25 MG TABLET PO SCH (09:00)
[2019-12-06] MEDS: RIFAXIMIN 550 MG TABLET PO SCH (09:20)
[2019-12-06] MEDS: FUROSEMIDE 40 MG TABLET PO SCH (09:23)
[2019-12-06] MEDS: VENLAFAXINE 75 MG TABLET PO SCH (09:23)
[2019-12-06] MEDS: INSULIN LISPRO 100 UNIT/ML SUBCUT SCH (09:23)
[2019-12-06] MEDS: METOPROLOL TARTRATE 25 MG TABLET PO SCH (09:23)
[2019-12-06] MEDS: FLUCONAZOLE 100 MG TABLET PO SCH (09:23)
[2019-12-06] MEDS: LOSARTAN 25 MG TABLET PO SCH (09:23)
[2019-12-06] MEDS: TAMSULOSIN 0.4 MG CAPSULE PO SCH (09:23)
[2019-12-06] MEDS: FAMOTIDINE 20 MG TABLET PO SCH (09:25)
== END 2019-12-06 11:33 | disposition home health service (06) | DRG 432 ==
LOC: N.ED 10:12 → N.EDINP 10:12 → N.3E 14:42 → N.4E 12-05 14:10
PROVIDERS: ADMIT Hospitalist; ATTEND Hospitalist

== ENCOUNTER 2019-12-09 22:24 | Inpatient (IN) ==
[2019-12-09 23:46] LABS: Basophils # 0.1 10*3/uL (0.0-0.2); Eosinophils # 0.6 10*3/uL (0.0-0.87); Eosinophils % 7.6 % (0.00-10.9); Hematocrit 32.3 VOL% (42.0-52.0); Hemoglobin 10.7 GM/DL (14.0-18.0); Immature Granulocytes % 0.4 %; Immature Granulocytes Absolute 0.03 #; Lymphocytes # 1.3 10*3/uL (1.4-4.0); Lymphocytes % 15.5 % (21.2-54.2); Mean Corpuscular HGB Conc 33.1 GM/DL (32-36); Mean Corpuscular Volume 85.7 FL (87-102); Monocytes % 14.1 % (1.7-12.7); Neutrophils % 61.4 % (38.7-73.9); Platelet Count 169 T/CUMM (130-400); Red Blood Count 3.77 MC/CUMM (3.8-5.5); Red Cell Distribution Width 15.5 % (9.3-17.3); White Blood Count 8.3 T/CUMM (4-12)
[2019-12-09 23:57] LABS: INR 1.1; PT Patient Result 11.3 SECS (9.8-11.9)
[2019-12-10 00:07] LABS: Albumin 1.6 G/DL (3.4-5.0); Bilirubin,Total 0.7 MG/DL (0.2-1.0); Calcium 7.8 MG/DL (8.5-10.1); Osmolality,Calculated 292.4 MOS/KG (273-304); Total Protein 5.2 G/DL (6.4-8.3)
[2019-12-10 00:53] LABS: Bacteria,Urine Occasional /HPF (Few); Bilirubin,Urine Negative (Negative); Blood, Urine Small mg/dL (Negative); Glucose,Urine (UA) Negative (Negative); Hyaline Casts,Urine 1 /LPF (0-3); Ketones,Urine Negative (Negative); Nitrite,Urine Negative (Negative); Protein,Urine Negative; RBC,Urine 4 /HPF (0-4); Squamous Epithelial Cell,Urine Occasional /HPF (0-10); Urine Appearance CLEAR (Clear); Urine Color Yellow (Yellow); Urine Specific Gravity 1.013 (1.001-1.035); WBC,Urine 1 /HPF (0-6)
[2019-12-10] MEDS ORDERED: LACTULOSE 20 GM/30 ML UDCUP PO STA (01:28)
[2019-12-10] MEDS ORDERED: GLUCAGON 1 MG VIAL IM PRN (01:33)
[2019-12-10] MEDS ORDERED: DEXTROSE 50% 25 GM/50 ML VIAL IV PRN ×2 (01:33)
[2019-12-10] MEDS ORDERED: ONDANSETRON 4 MG/2 ML VIAL IV PRN (01:33)
[2019-12-10] MEDS: LACTULOSE 20 GM/30 ML UDCUP PO SCH ×5 (03:20→21:35)
[2019-12-10] MEDS ORDERED: NAPROXEN 250 MG TABLET PO PRN (04:40)
[2019-12-10] MEDS ORDERED: LACTULOSE 20 GM/30 ML UDCUP PO SCH (09:00)
[2019-12-10] MEDS ORDERED: PANTOPRAZOLE 40 MG TABLET PO SCH (09:00)
[2019-12-10] MEDS: FAMOTIDINE 20 MG TABLET PO SCH ×2 (09:34→21:34)
[2019-12-10] MEDS: METOPROLOL TARTRATE 25 MG TABLET PO SCH (09:35)
[2019-12-10] MEDS: TAMSULOSIN 0.4 MG CAPSULE PO SCH ×2 (09:35→21:34)
[2019-12-10] MEDS: FUROSEMIDE 40 MG TABLET PO SCH (09:35)
[2019-12-10] MEDS: VENLAFAXINE 75 MG TABLET PO SCH (09:35)
[2019-12-10] MEDS: LOSARTAN 25 MG TABLET PO SCH (09:35)
[2019-12-10] MEDS: SPIRONOLACTONE 25 MG TABLET PO SCH (09:35)
[2019-12-10] MEDS: RIFAXIMIN 550 MG TABLET PO SCH ×2 (09:35→21:35)
[2019-12-10] MEDS: INSULIN REGULAR 100 UNIT/ML SUBCUT SCH ×4 (09:43→21:35)
[2019-12-10] MEDS ORDERED: ALBUMIN 25% 12.5 GM/50 ML VIAL IV ONE (10:10)
[2019-12-10] MEDS ORDERED: ALBUMIN 25% 12.5 GM in PREMIX 1 EACH IV PRN (10:11)
[2019-12-10] MEDS ORDERED: TISSUE ADHESIVE 1 EACH APPLICATOR TOP ONE (10:51)
[2019-12-10] MEDS ORDERED: ORPHENADRINE 60 MG/2 ML VIAL IV ONE (15:00)
[2019-12-10] MEDS: MAGNESIUM OXIDE 400 MG TABLET PO SCH ×2 (15:49→21:38)
[2019-12-10] MEDS ORDERED: chlorproMAZINE INJ 25 MG in SODIUM CHLORIDE 0.9% 100 ML IV PRN (16:36)
[2019-12-10] MEDS ORDERED: HYDROmorphone 2 MG/1 ML VIAL IV PRN (16:37)
[2019-12-11 06:26] LABS: Basophils # 0.1 10*3/uL (0.0-0.2); Basophils % 1.4 % (0.0-0.8); Eosinophils # 0.5 10*3/uL (0.0-0.87); Eosinophils % 7.5 % (0.00-10.9); Hematocrit 30.1 VOL% (42.0-52.0); Hemoglobin 9.9 GM/DL (14.0-18.0); Immature Granulocytes % 0.2 %; Immature Granulocytes Absolute 0.01 #; Lymphocytes # 1.3 10*3/uL (1.4-4.0); Lymphocytes % 19.8 % (21.2-54.2); Mean Corpuscular HGB Conc 32.9 GM/DL (32-36); Mean Corpuscular Volume 87.2 FL (87-102); Mean Platelet Volume 10.3 FL (9.6-12.0); Monocytes % 16.9 % (1.7-12.7); Neutrophils % 54.2 % (38.7-73.9); Platelet Count 151 T/CUMM (130-400); Red Blood Count 3.45 MC/CUMM (3.8-5.5); Red Cell Distribution Width 15.9 % (9.3-17.3); White Blood Count 6.6 T/CUMM (4-12)
[2019-12-11 06:46] LABS: Eosinophils 12 % (0-10); Hypochromasia 1+; Lymphocytes 18 % (20-55); Microcytosis Slight; Platelet Estimate Adequate; Segmented Neutrophils 55 % (50-85); Total Cells Counted 100
[2019-12-11 06:54] LABS: Albumin 1.4 G/DL (3.4-5.0); Bilirubin,Total 1.1 MG/DL (0.2-1.0); Osmolality,Calculated 293.8 MOS/KG (273-304); Total Protein 4.5 G/DL (6.4-8.3)
[2019-12-11] MEDS ORDERED: ACETAMINOPHEN 500 MG TABLET PO PRN (07:18)
[2019-12-11] MEDS ORDERED: ALBUMIN 25% 50 GM in PREMIX 1 EACH IV ONE (09:00)
[2019-12-11] MEDS: FAMOTIDINE 20 MG TABLET PO SCH ×2 (09:43→21:05)
[2019-12-11] MEDS: MAGNESIUM OXIDE 400 MG TABLET PO SCH ×2 (09:43→21:05)
[2019-12-11] MEDS: LACTULOSE 20 GM/30 ML UDCUP PO SCH ×3 (09:43→21:05)
[2019-12-11] MEDS: INSULIN REGULAR 100 UNIT/ML SUBCUT SCH ×4 (09:43→21:01)
[2019-12-11] MEDS: FUROSEMIDE 40 MG TABLET PO SCH (09:44)
[2019-12-11] MEDS: SPIRONOLACTONE 25 MG TABLET PO SCH (09:44)
[2019-12-11] MEDS: METOPROLOL TARTRATE 25 MG TABLET PO SCH (09:44)
[2019-12-11] MEDS: TAMSULOSIN 0.4 MG CAPSULE PO SCH ×2 (09:44→21:05)
[2019-12-11] MEDS: RIFAXIMIN 550 MG TABLET PO SCH ×2 (09:44→21:05)
[2019-12-11] MEDS: VENLAFAXINE 75 MG TABLET PO SCH (09:44)
[2019-12-11] MEDS: rOPINIRole 0.25 MG TABLET PO SCH (21:05)
[2019-12-12 05:22] LABS: % Iron Saturation 15.8 % (18-50); Ferritin 39.2 ng/ml (26-388)
[2019-12-12] MEDS: LACTULOSE 20 GM/30 ML UDCUP PO SCH ×3 (08:18→21:26)
[2019-12-12] MEDS: INSULIN REGULAR 100 UNIT/ML SUBCUT SCH ×4 (08:18→21:27)
[2019-12-12] MEDS: TAMSULOSIN 0.4 MG CAPSULE PO SCH ×2 (08:19→21:26)
[2019-12-12] MEDS: MAGNESIUM OXIDE 400 MG TABLET PO SCH ×2 (08:19→21:26)
[2019-12-12] MEDS: SPIRONOLACTONE 25 MG TABLET PO SCH (08:19)
[2019-12-12] MEDS: VENLAFAXINE 75 MG TABLET PO SCH (08:19)
[2019-12-12] MEDS: METOPROLOL TARTRATE 25 MG TABLET PO SCH (08:19)
[2019-12-12] MEDS: FAMOTIDINE 20 MG TABLET PO SCH ×2 (08:19→21:26)
[2019-12-12] MEDS: RIFAXIMIN 550 MG TABLET PO SCH ×2 (08:19→21:26)
[2019-12-12] MEDS: FUROSEMIDE 40 MG TABLET PO SCH (08:20)
[2019-12-12] MEDS: LOSARTAN 25 MG TABLET PO SCH (08:20)
[2019-12-12] MEDS ORDERED: IRON SUCROSE 300 MG in SODIUM CHLORIDE 0.9% 100 ML IV ONE (10:00)
[2019-12-12] MEDS: rOPINIRole 0.25 MG TABLET PO SCH (21:26)
[2019-12-13 06:19] LABS: Basophils # 0.1 10*3/uL (0.0-0.2); Basophils % 1.2 % (0.0-0.8); Eosinophils # 0.4 10*3/uL (0.0-0.87); Eosinophils % 7.3 % (0.00-10.9); Hematocrit 26.9 VOL% (42.0-52.0); Hemoglobin 8.6 GM/DL (14.0-18.0); Immature Granulocytes % 0.2 %; Immature Granulocytes Absolute 0.01 #; Lymphocytes % 20.2 % (21.2-54.2); Mean Corpuscular Volume 87.6 FL (87-102); Mean Platelet Volume 10.5 FL (9.6-12.0); Monocytes % 14.5 % (1.7-12.7); Neutrophils % 56.6 % (38.7-73.9); Platelet Count 123 T/CUMM (130-400); Red Blood Count 3.07 MC/CUMM (3.8-5.5); Red Cell Distribution Width 15.2 % (9.3-17.3); White Blood Count 4.9 T/CUMM (4-12)
[2019-12-13 06:30] LABS: Calcium 8.3 MG/DL (8.5-10.1)
[2019-12-13] MEDS: RIFAXIMIN 550 MG TABLET PO SCH ×2 (08:41→22:07)
[2019-12-13] MEDS: MAGNESIUM OXIDE 400 MG TABLET PO SCH ×2 (08:41→22:07)
[2019-12-13] MEDS: METOPROLOL TARTRATE 25 MG TABLET PO SCH (08:41)
[2019-12-13] MEDS: VENLAFAXINE 75 MG TABLET PO SCH (08:41)
[2019-12-13] MEDS: FAMOTIDINE 20 MG TABLET PO SCH ×2 (08:41→22:07)
[2019-12-13] MEDS: INSULIN REGULAR 100 UNIT/ML SUBCUT SCH ×4 (08:42→22:07)
[2019-12-13] MEDS: LACTULOSE 20 GM/30 ML UDCUP PO SCH ×4 (08:42→22:07)
[2019-12-13] MEDS: TAMSULOSIN 0.4 MG CAPSULE PO SCH ×2 (08:42→22:07)
[2019-12-13] MEDS: rOPINIRole 0.25 MG TABLET PO SCH (22:07)
[2019-12-14 04:46] LABS: Basophils # 0.1 10*3/uL (0.0-0.2); Basophils % 1.2 % (0.0-0.8); Eosinophils # 0.5 10*3/uL (0.0-0.87); Eosinophils % 8.2 % (0.00-10.9); Hematocrit 30.5 VOL% (42.0-52.0); Hemoglobin 9.8 GM/DL (14.0-18.0); Immature Granulocytes % 0.2 %; Immature Granulocytes Absolute 0.01 #; Lymphocytes % 16.6 % (21.2-54.2); Mean Corpuscular HGB Conc 32.1 GM/DL (32-36); Mean Corpuscular Volume 86.9 FL (87-102); Mean Platelet Volume 10.7 FL (9.6-12.0); Monocytes % 13.2 % (1.7-12.7); Neutrophils % 60.6 % (38.7-73.9); Platelet Count 129 T/CUMM (130-400); Red Blood Count 3.51 MC/CUMM (3.8-5.5); Red Cell Distribution Width 15.1 % (9.3-17.3); White Blood Count 6.1 T/CUMM (4-12)
[2019-12-14 05:13] LABS: Calcium 8.3 MG/DL (8.5-10.1); Osmolality,Calculated 294.1 MOS/KG (273-304)
[2019-12-14] MEDS: MAGNESIUM OXIDE 400 MG TABLET PO SCH ×2 (09:27→20:46)
[2019-12-14] MEDS: TAMSULOSIN 0.4 MG CAPSULE PO SCH ×2 (09:27→20:46)
[2019-12-14] MEDS: METOPROLOL TARTRATE 25 MG TABLET PO SCH (09:27)
[2019-12-14] MEDS: FAMOTIDINE 20 MG TABLET PO SCH ×2 (09:27→20:46)
[2019-12-14] MEDS: VENLAFAXINE 75 MG TABLET PO SCH (09:27)
[2019-12-14] MEDS: LOSARTAN 25 MG TABLET PO SCH (09:27)
[2019-12-14] MEDS: INSULIN REGULAR 100 UNIT/ML SUBCUT SCH ×4 (09:27→21:23)
[2019-12-14] MEDS: RIFAXIMIN 550 MG TABLET PO SCH ×2 (09:27→20:46)
[2019-12-14] MEDS: LACTULOSE 20 GM/30 ML UDCUP PO SCH ×4 (09:28→20:45)
[2019-12-14] MEDS ORDERED: ALBUMIN 25% 50 GM in PREMIX 1 EACH IV ONE (10:00)
[2019-12-14 11:12] LABS: Neutrophils,Peritoneal Fluid 13 %; RBC,Peritoneal Fluid 675 T/CUMM
[2019-12-14 11:34] LABS: Total Protein,Peritoneal Fluid 1.4 G/DL
[2019-12-14] MEDS: rOPINIRole 0.25 MG TABLET PO SCH (20:46)
[2019-12-15] MEDS: FAMOTIDINE 20 MG TABLET PO SCH (08:27)
[2019-12-15] MEDS: VENLAFAXINE 75 MG TABLET PO SCH (08:27)
[2019-12-15] MEDS: MAGNESIUM OXIDE 400 MG TABLET PO SCH (08:27)
[2019-12-15] MEDS: TAMSULOSIN 0.4 MG CAPSULE PO SCH (08:27)
[2019-12-15] MEDS: INSULIN REGULAR 100 UNIT/ML SUBCUT SCH ×2 (08:27→12:03)
[2019-12-15] MEDS: RIFAXIMIN 550 MG TABLET PO SCH (08:27)
[2019-12-15] MEDS: METOPROLOL TARTRATE 25 MG TABLET PO SCH (08:27)
[2019-12-15] MEDS: LACTULOSE 20 GM/30 ML UDCUP PO SCH ×2 (09:15→12:03)
[2019-12-15 12:20] VITALS: BP 99/59
== END 2019-12-15 13:14 | disposition home health service (06) | DRG 442 ==
LOC: N.ED 22:24 → N.EDINP 22:24 → N.5E 12-10 03:35 → SUATTDRO 12-10 13:46
PROVIDERS: ADMIT Hospitalist; ATTEND Internal Medicine

== ENCOUNTER 2020-01-02 12:30 | Observation (INO) ==
[2020-01-02 15:07] LABS: Basophils # 0.1 10*3/uL (0.0-0.2); Basophils % 0.6 % (0.0-0.8); Eosinophils # 0.2 10*3/uL (0.0-0.87); Eosinophils % 2.5 % (0.00-10.9); Hematocrit 35.7 VOL% (42.0-52.0); Hemoglobin 11.8 GM/DL (14.0-18.0); Immature Granulocytes % 1.6 %; Immature Granulocytes Absolute 0.15 #; Lymphocytes # 0.8 10*3/uL (1.4-4.0); Lymphocytes % 8.1 % (21.2-54.2); Mean Corpuscular HGB Conc 33.1 GM/DL (32-36); Mean Corpuscular Volume 87.1 FL (87-102); Mean Platelet Volume 9.9 FL (9.6-12.0); Monocytes % 11.4 % (1.7-12.7); Neutrophils % 75.8 % (38.7-73.9); Platelet Count 136 T/CUMM (130-400); Red Cell Distribution Width 15.6 % (9.3-17.3); White Blood Count 9.5 T/CUMM (4-12)
[2020-01-02] MEDS ORDERED: cefTRIAXone 1,000 MG in SODIUM CHLORIDE 0.9% 100 ML IV STA (15:09)
[2020-01-02 15:11] LABS: INR 1.1; PT Patient Result 11.9 SECS (9.8-11.9); Partial Thromboplastin Time 31.9 SECS (23.9-33.8)
[2020-01-02 15:31] LABS: Albumin 2.2 G/DL (3.4-5.0); Bilirubin,Total 1.5 MG/DL (0.2-1.0); Calcium 8.2 MG/DL (8.5-10.1); Ferritin 96.9 ng/ml (26-388); Osmolality,Calculated 291.1 MOS/KG (273-304); Total Protein 6.2 G/DL (6.4-8.3)
[2020-01-02] MEDS ORDERED: DEXTROSE 50% 25 GM/50 ML VIAL IV PRN ×2 (15:48→15:59)
[2020-01-02] MEDS ORDERED: GLUCAGON 1 MG VIAL IM PRN ×2 (15:48→15:59)
[2020-01-02] MEDS ORDERED: CHOLECALCIFEROL 1,000 UNIT TABLET PO ONE (16:05)
[2020-01-02] MEDS ORDERED: cefTRIAXone 1,000 MG VIAL ONE (17:24)
[2020-01-02] MEDS: INSULIN LISPRO 100 UNIT/ML SUBCUT SCH ×2 (18:14→21:37)
[2020-01-02] MEDS ORDERED: cefTRIAXone 1,000 MG in SODIUM CHLORIDE 0.9% 100 ML IV ONE (18:26)
[2020-01-02] MEDS: FAMOTIDINE 20 MG TABLET PO SCH (21:43)
[2020-01-02] MEDS: ACETAMINOPHEN 325 MG TABLET PO PRN (21:43)
[2020-01-02] MEDS: METOPROLOL TARTRATE 25 MG TABLET PO SCH (22:20)
[2020-01-03 05:38] LABS: Basophils # 0.1 10*3/uL (0.0-0.2); Basophils % 0.6 % (0.0-0.8); Eosinophils # 0.2 10*3/uL (0.0-0.87); Eosinophils % 2.3 % (0.00-10.9); Hematocrit 30.3 VOL% (42.0-52.0); Immature Granulocytes % 0.3 %; Immature Granulocytes Absolute 0.03 #; Lymphocytes # 0.9 10*3/uL (1.4-4.0); Lymphocytes % 9.8 % (21.2-54.2); Mean Corpuscular Volume 86.1 FL (87-102); Mean Platelet Volume 10.2 FL (9.6-12.0); Monocytes % 12.7 % (1.7-12.7); Neutrophils % 74.3 % (38.7-73.9); Platelet Count 107 T/CUMM (130-400); Red Blood Count 3.52 MC/CUMM (3.8-5.5); Red Cell Distribution Width 15.6 % (9.3-17.3); White Blood Count 8.7 T/CUMM (4-12)
[2020-01-03 06:00] LABS: Calcium 8.1 MG/DL (8.5-10.1)
[2020-01-03 06:03] LABS: Ferritin 99.8 ng/ml (26-388)
[2020-01-03] MEDS: INSULIN LISPRO 100 UNIT/ML SUBCUT SCH ×4 (08:23→19:59)
[2020-01-03] MEDS: ASCORBIC ACID 500 MG TABLET PO SCH (08:49)
[2020-01-03] MEDS: FAMOTIDINE 20 MG TABLET PO SCH ×2 (08:49→19:59)
[2020-01-03] MEDS: METOPROLOL TARTRATE 25 MG TABLET PO SCH (08:49)
[2020-01-03] MEDS: ZINC SULFATE 220 MG CAPSULE PO SCH (08:50)
[2020-01-03] MEDS ORDERED: LOSARTAN 25 MG TABLET PO SCH (09:00)
[2020-01-03] MEDS ORDERED: FAMOTIDINE 20 MG TABLET PO SCH (10:30)
[2020-01-03] MEDS: glyBURIDE 2.5 MG TABLET PO SCH (12:40)
[2020-01-03] MEDS: RIFAXIMIN 550 MG TABLET PO SCH ×2 (12:40→19:59)
[2020-01-03] MEDS: LACTULOSE 20 GM/30 ML UDCUP PO SCH ×2 (12:40→18:26)
[2020-01-03] MEDS: VENLAFAXINE 75 MG TABLET PO SCH (12:40)
[2020-01-03] MEDS: SPIRONOLACTONE 25 MG TABLET PO SCH (12:48)
[2020-01-03] MEDS: TAMSULOSIN 0.4 MG CAPSULE PO SCH ×2 (12:48→19:59)
[2020-01-03] MEDS: ACETAMINOPHEN 325 MG TABLET PO PRN (12:59)
[2020-01-03] MEDS: DEXAMETHASONE 4 MG/1 ML VIAL IV SCH (13:52)
[2020-01-03] MEDS: GABAPENTIN 100 MG CAPSULE PO SCH ×2 (15:29→19:59)
[2020-01-04] MEDS: LACTULOSE 20 GM/30 ML UDCUP PO SCH ×2 (00:15→06:05)
[2020-01-04 05:12] LABS: Basophils % 0.1 % (0.0-0.8); Hematocrit 30.4 VOL% (42.0-52.0); Hemoglobin 9.8 GM/DL (14.0-18.0); Immature Granulocytes % 0.4 %; Immature Granulocytes Absolute 0.03 #; Lymphocytes # 0.5 10*3/uL (1.4-4.0); Lymphocytes % 6.2 % (21.2-54.2); Mean Corpuscular HGB Conc 32.2 GM/DL (32-36); Mean Corpuscular Volume 87.4 FL (87-102); Mean Platelet Volume 10.3 FL (9.6-12.0); Monocytes % 9.6 % (1.7-12.7); Neutrophils % 83.7 % (38.7-73.9); Platelet Count 105 T/CUMM (130-400); Red Blood Count 3.48 MC/CUMM (3.8-5.5); Red Cell Distribution Width 15.1 % (9.3-17.3); White Blood Count 7.5 T/CUMM (4-12)
[2020-01-04 05:35] LABS: Calcium 7.6 MG/DL (8.5-10.1); Osmolality,Calculated 293.5 MOS/KG (273-304)
[2020-01-04 05:37] LABS: Ferritin 130.7 ng/ml (26-388)
[2020-01-04 08:34] VITALS: BP 141/61
[2020-01-04] MEDS: GABAPENTIN 100 MG CAPSULE PO SCH (09:30)
[2020-01-04] MEDS: VENLAFAXINE 75 MG TABLET PO SCH (09:30)
[2020-01-04] MEDS: METOPROLOL TARTRATE 25 MG TABLET PO SCH (09:30)
[2020-01-04] MEDS: SPIRONOLACTONE 25 MG TABLET PO SCH (09:30)
[2020-01-04] MEDS: RIFAXIMIN 550 MG TABLET PO SCH (09:30)
[2020-01-04] MEDS: TAMSULOSIN 0.4 MG CAPSULE PO SCH (09:30)
[2020-01-04] MEDS: glyBURIDE 2.5 MG TABLET PO SCH (09:30)
[2020-01-04] MEDS: DEXAMETHASONE 4 MG/1 ML VIAL IV SCH (09:30)
[2020-01-04] MEDS: FAMOTIDINE 20 MG TABLET PO SCH (09:30)
[2020-01-04] MEDS: ZINC SULFATE 220 MG CAPSULE PO SCH (09:30)
[2020-01-04] MEDS: INSULIN LISPRO 100 UNIT/ML SUBCUT SCH (09:30)
[2020-01-04] MEDS: ASCORBIC ACID 500 MG TABLET PO SCH (09:30)
== END 2020-01-04 11:16 | disposition home health service (06) ==
LOC: N.EDINP 12:30 → N.ED 12:30 → N.2E 17:20
PROVIDERS: ADMIT Internal Medicine Geriatric Medicine; ATTEND Internal Medicine Geriatric Medicine

== ENCOUNTER 2020-01-07 09:29 | Inpatient (IN) ==
[2020-01-07 10:54] LABS: Basophils % 0.1 % (0.0-0.8); Hematocrit 35.7 VOL% (42.0-52.0); Hemoglobin 11.8 GM/DL (14.0-18.0); Immature Granulocytes % 0.4 %; Immature Granulocytes Absolute 0.05 #; Lymphocytes # 0.6 10*3/uL (1.4-4.0); Lymphocytes % 4.4 % (21.2-54.2); Mean Corpuscular HGB Conc 33.1 GM/DL (32-36); Mean Corpuscular Volume 87.1 FL (87-102); Mean Platelet Volume 10.3 FL (9.6-12.0); Monocytes % 8.2 % (1.7-12.7); Neutrophils % 86.9 % (38.7-73.9); Platelet Count 194 T/CUMM (130-400); White Blood Count 13.7 T/CUMM (4-12)
[2020-01-07 11:01] LABS: PT Patient Result 11.1 SECS (9.8-11.9)
[2020-01-07] MEDS ORDERED: PIPERACILLIN/TAZOBACTAM 3,375 MG in SODIUM CHLORIDE 0.9% 100 ML IV STA (11:27)
[2020-01-07 11:33] LABS: Lymphocytes 6 % (20-55); Segmented Neutrophils 86 % (50-85); Total Cells Counted 100
[2020-01-07 11:34] LABS: Hypochromasia 1+; Microcytosis 1+; Platelet Estimate Adequate
[2020-01-07 11:45] LABS: Albumin 1.8 G/DL (3.4-5.0); Bilirubin,Total 1.1 MG/DL (0.2-1.0); Calcium 7.9 MG/DL (8.5-10.1); Ferritin 185.5 ng/ml (26-388); Osmolality,Calculated 292.5 MOS/KG (273-304); Total Protein 5.6 G/DL (6.4-8.3)
[2020-01-07] MEDS ORDERED: ONDANSETRON 4 MG/2 ML VIAL IV PRN (11:52)
[2020-01-07] MEDS ORDERED: ENOXAPARIN 60 MG/0.6 ML SYRINGE ONE (13:09)
[2020-01-07] MEDS ORDERED: AZITHROMYCIN INJ 500 MG in SODIUM CHLORIDE 0.9% 250 ML IV ONE (13:30)
[2020-01-07] MEDS ORDERED: ENOXAPARIN 60 MG/0.6 ML SYRINGE SUBCUT SCH (13:30)
[2020-01-07] MEDS ORDERED: HEPARIN 5,000 UNIT/1 ML VIAL SUBCUT SCH (13:30)
[2020-01-07] MEDS: cefTRIAXone 1,000 MG in SYRINGE 1 EACH IV SCH (13:39)
[2020-01-07] MEDS: DEXAMETHASONE 10 MG/1 ML VIAL IV SCH (13:42)
[2020-01-07 14:22] LABS: Amorphous Crystals,Urine Occasional /HPF (Few); Bilirubin,Urine Negative (Negative); Blood, Urine Small mg/dL (Negative); Glucose,Urine (UA) Negative (Negative); Hyaline Casts,Urine 1 /LPF (0-3); Ketones,Urine Negative (Negative); Nitrite,Urine Negative (Negative); Protein,Urine Negative; RBC,Urine <1 /HPF (0-4); Squamous Epithelial Cell,Urine Occasional /HPF (0-10); Urine Appearance CLOUDY (Clear); Urine Color Yellow (Yellow); Urine Specific Gravity 1.015 (1.001-1.035); Urine Urobilinogen < 2.0 EU/DL (0.2-1.0)
[2020-01-07] MEDS ORDERED: SODIUM CHLORIDE 0.9% 1,000 ML IV PRN (14:26)
[2020-01-07] MEDS ORDERED: FUROSEMIDE 40 MG/4 ML VIAL IV ONE (14:41)
[2020-01-07] MEDS ORDERED: DEXTROSE 50% 25 GM/50 ML VIAL IV PRN (18:38)
[2020-01-07] MEDS ORDERED: GLUCAGON 1 MG VIAL IM PRN (18:38)
[2020-01-07] MEDS: INSULIN LISPRO 100 UNIT/ML SUBCUT SCH (21:40)
[2020-01-08] MEDS: INSULIN LISPRO 100 UNIT/ML SUBCUT SCH ×6 (00:21→20:45)
[2020-01-08 03:43] LABS: Basophils % 0.1 % (0.0-0.8); Hemoglobin 10.5 GM/DL (14.0-18.0); Immature Granulocytes % 0.5 %; Immature Granulocytes Absolute 0.05 #; Lymphocytes # 0.4 10*3/uL (1.4-4.0); Lymphocytes % 4.1 % (21.2-54.2); Mean Corpuscular HGB Conc 32.8 GM/DL (32-36); Mean Corpuscular Volume 86.5 FL (87-102); Mean Platelet Volume 9.9 FL (9.6-12.0); Monocytes % 5.7 % (1.7-12.7); Neutrophils % 89.6 % (38.7-73.9); Platelet Count 173 T/CUMM (130-400); Red Cell Distribution Width 14.9 % (9.3-17.3); White Blood Count 10.7 T/CUMM (4-12)
[2020-01-08 04:02] LABS: Albumin 1.6 G/DL (3.4-5.0); Bilirubin,Total 0.9 MG/DL (0.2-1.0); Calcium 7.8 MG/DL (8.5-10.1); Osmolality,Calculated 296.5 MOS/KG (273-304); Total Protein 5.5 G/DL (6.4-8.3)
[2020-01-08 07:52] LABS: Lymphocytes 6 % (20-55); Segmented Neutrophils 92 % (50-85); Total Cells Counted 100
[2020-01-08 07:57] LABS: Microcytosis Slight
[2020-01-08 07:58] LABS: Platelet Estimate Adequate
[2020-01-08] MEDS ORDERED: FUROSEMIDE 40 MG/4 ML VIAL IV SCH (08:00)
[2020-01-08] MEDS: DEXAMETHASONE 10 MG/1 ML VIAL IV SCH (08:07)
[2020-01-08] MEDS: HEPARIN 5,000 UNIT/1 ML VIAL SUBCUT SCH ×2 (08:07→20:27)
[2020-01-08] MEDS: ZINC GLUCONATE 50 MG TABLET PO SCH (08:07)
[2020-01-08] MEDS: ASCORBIC ACID 500 MG TABLET PO SCH (08:07)
[2020-01-08] MEDS: METOPROLOL TARTRATE 25 MG TABLET PO SCH (08:07)
[2020-01-08] MEDS: RIFAXIMIN 550 MG TABLET PO SCH ×2 (08:08→20:27)
[2020-01-08] MEDS: PANTOPRAZOLE 40 MG TABLET PO SCH (08:08)
[2020-01-08] MEDS: TAMSULOSIN 0.4 MG CAPSULE PO SCH ×2 (08:08→20:27)
[2020-01-08] MEDS: SPIRONOLACTONE 25 MG TABLET PO SCH (08:13)
[2020-01-08] MEDS ORDERED: DEXAMETHASONE INJ 10 MG in SODIUM CHLORIDE 0.9% 50 ML IV SCH (09:00)
[2020-01-08] MEDS: LACTULOSE 20 GM/30 ML UDCUP PO SCH ×3 (09:16→20:27)
[2020-01-08] MEDS: VENLAFAXINE 75 MG TABLET PO SCH (09:16)
[2020-01-08] MEDS ORDERED: REMDESIVIR 200 MG in SODIUM CHLORIDE 0.9% 210 ML IV ONE (12:00)
[2020-01-08] MEDS: AZITHROMYCIN INJ 250 MG in SODIUM CHLORIDE 0.9% 250 ML IV SCH (14:33)
[2020-01-08] MEDS: cefTRIAXone 1,000 MG in SYRINGE 1 EACH IV SCH (14:33)
[2020-01-08] MEDS ORDERED: TISSUE ADHESIVE 1 EACH APPLICATOR TOP ONE (15:19)
[2020-01-08] MEDS ORDERED: ALBUMIN 5% 12.5 GM/250 ML VIAL IV ONE (15:42)
[2020-01-08] MEDS ORDERED: ALBUMIN 25% 12.5 GM in PREMIX 1 EACH IV ONE (15:45)
[2020-01-09] MEDS: INSULIN LISPRO 100 UNIT/ML SUBCUT SCH ×6 (00:02→21:41)
[2020-01-09] MEDS: LACTULOSE 20 GM/30 ML UDCUP PO SCH ×4 (03:15→20:58)
[2020-01-09 04:52] LABS: Basophils % 0.1 % (0.0-0.8); Hematocrit 30.6 VOL% (42.0-52.0); Hemoglobin 10.1 GM/DL (14.0-18.0); Immature Granulocytes % 0.6 %; Immature Granulocytes Absolute 0.06 #; Lymphocytes # 0.4 10*3/uL (1.4-4.0); Mean Corpuscular Volume 86.7 FL (87-102); Mean Platelet Volume 9.6 FL (9.6-12.0); Monocytes % 8.3 % (1.7-12.7); Platelet Count 148 T/CUMM (130-400); Red Blood Count 3.53 MC/CUMM (3.8-5.5); Red Cell Distribution Width 14.7 % (9.3-17.3); White Blood Count 9.8 T/CUMM (4-12)
[2020-01-09 05:18] LABS: Albumin 1.6 G/DL (3.4-5.0); Bilirubin,Total 0.8 MG/DL (0.2-1.0); Calcium 7.8 MG/DL (8.5-10.1); Osmolality,Calculated 306.4 MOS/KG (273-304); Total Protein 4.9 G/DL (6.4-8.3)
[2020-01-09 05:22] LABS: Lymphocytes 1 % (20-55); Segmented Neutrophils 94 % (50-85); Total Cells Counted 100
[2020-01-09 05:23] LABS: Hypochromasia 1+; Microcytosis 1+; Ovalocytes Slight; Platelet Estimate Normal
[2020-01-09] MEDS: DEXAMETHASONE 10 MG/1 ML VIAL IV SCH (09:18)
[2020-01-09] MEDS: METOPROLOL TARTRATE 25 MG TABLET PO SCH (09:19)
[2020-01-09] MEDS: ASCORBIC ACID 500 MG TABLET PO SCH (09:19)
[2020-01-09] MEDS: RIFAXIMIN 550 MG TABLET PO SCH ×2 (09:19→21:41)
[2020-01-09] MEDS: VENLAFAXINE 75 MG TABLET PO SCH (09:19)
[2020-01-09] MEDS: HEPARIN 5,000 UNIT/1 ML VIAL SUBCUT SCH ×2 (09:19→21:41)
[2020-01-09] MEDS: PANTOPRAZOLE 40 MG TABLET PO SCH (09:19)
[2020-01-09] MEDS: TAMSULOSIN 0.4 MG CAPSULE PO SCH ×2 (09:19→21:41)
[2020-01-09] MEDS: SPIRONOLACTONE 25 MG TABLET PO SCH (09:19)
[2020-01-09] MEDS: ZINC GLUCONATE 50 MG TABLET PO SCH (09:19)
[2020-01-09] MEDS: REMDESIVIR 100 MG in SODIUM CHLORIDE 0.9% 230 ML IV SCH (10:31)
[2020-01-09] MEDS: AZITHROMYCIN INJ 250 MG in SODIUM CHLORIDE 0.9% 250 ML IV SCH (15:25)
[2020-01-09] MEDS: cefTRIAXone 1,000 MG in SYRINGE 1 EACH IV SCH (15:26)
[2020-01-10] MEDS: LACTULOSE 20 GM/30 ML UDCUP PO SCH ×5 (02:32→21:23)
[2020-01-10 06:43] LABS: Albumin 1.6 G/DL (3.4-5.0); Osmolality,Calculated 313.1 MOS/KG (273-304); Total Protein 5.1 G/DL (6.4-8.3)
[2020-01-10] MEDS: INSULIN LISPRO 100 UNIT/ML SUBCUT SCH ×4 (09:32→21:23)
[2020-01-10] MEDS: DEXAMETHASONE 10 MG/1 ML VIAL IV SCH (09:32)
[2020-01-10] MEDS: VENLAFAXINE 75 MG TABLET PO SCH (09:32)
[2020-01-10] MEDS: TAMSULOSIN 0.4 MG CAPSULE PO SCH ×2 (09:32→21:23)
[2020-01-10] MEDS: SPIRONOLACTONE 25 MG TABLET PO SCH (09:32)
[2020-01-10] MEDS: HEPARIN 5,000 UNIT/1 ML VIAL SUBCUT SCH ×2 (09:33→21:23)
[2020-01-10] MEDS: PANTOPRAZOLE 40 MG TABLET PO SCH (09:33)
[2020-01-10] MEDS: ZINC GLUCONATE 50 MG TABLET PO SCH (09:33)
[2020-01-10] MEDS: REMDESIVIR 100 MG in SODIUM CHLORIDE 0.9% 230 ML IV SCH (09:33)
[2020-01-10] MEDS: METOPROLOL TARTRATE 25 MG TABLET PO SCH (09:33)
[2020-01-10] MEDS: ASCORBIC ACID 500 MG TABLET PO SCH (09:33)
[2020-01-10] MEDS: RIFAXIMIN 550 MG TABLET PO SCH ×2 (09:33→21:24)
[2020-01-10] MEDS: AZITHROMYCIN INJ 250 MG in SODIUM CHLORIDE 0.9% 250 ML IV SCH (12:55)
[2020-01-10] MEDS: cefTRIAXone 1,000 MG in SYRINGE 1 EACH IV SCH (13:05)
[2020-01-11] MEDS: LACTULOSE 20 GM/30 ML UDCUP PO SCH ×4 (02:09→21:32)
[2020-01-11 05:57] LABS: Basophils % 0.1 % (0.0-0.8); Hemoglobin 9.9 GM/DL (14.0-18.0); Immature Granulocytes % 1.4 %; Immature Granulocytes Absolute 0.15 #; Lymphocytes # 0.4 10*3/uL (1.4-4.0); Lymphocytes % 3.3 % (21.2-54.2); Mean Platelet Volume 10.2 FL (9.6-12.0); Monocytes % 7.8 % (1.7-12.7); Neutrophils % 87.4 % (38.7-73.9); Platelet Count 123 T/CUMM (130-400); Red Blood Count 3.45 MC/CUMM (3.8-5.5); Red Cell Distribution Width 14.6 % (9.3-17.3); White Blood Count 10.6 T/CUMM (4-12)
[2020-01-11 06:18] LABS: Calcium 7.8 MG/DL (8.5-10.1); Ferritin 159.7 ng/ml (26-388); Osmolality,Calculated 304.8 MOS/KG (273-304)
[2020-01-11 06:22] LABS: Hypochromasia 1+; Lymphocytes 2 % (20-55); Microcytosis 1+; Segmented Neutrophils 95 % (50-85); Total Cells Counted 100
[2020-01-11] MEDS: VENLAFAXINE 75 MG TABLET PO SCH (08:57)
[2020-01-11] MEDS: SPIRONOLACTONE 25 MG TABLET PO SCH (08:57)
[2020-01-11] MEDS: INSULIN LISPRO 100 UNIT/ML SUBCUT SCH ×4 (08:57→21:33)
[2020-01-11] MEDS: DEXAMETHASONE 10 MG/1 ML VIAL IV SCH (08:57)
[2020-01-11] MEDS: RIFAXIMIN 550 MG TABLET PO SCH ×2 (08:58→21:33)
[2020-01-11] MEDS: ZINC GLUCONATE 50 MG TABLET PO SCH (08:58)
[2020-01-11] MEDS: HEPARIN 5,000 UNIT/1 ML VIAL SUBCUT SCH ×2 (08:58→21:33)
[2020-01-11] MEDS: ASCORBIC ACID 500 MG TABLET PO SCH (08:58)
[2020-01-11] MEDS: REMDESIVIR 100 MG in SODIUM CHLORIDE 0.9% 230 ML IV SCH (08:58)
[2020-01-11] MEDS: TAMSULOSIN 0.4 MG CAPSULE PO SCH ×2 (08:58→21:33)
[2020-01-11] MEDS: PANTOPRAZOLE 40 MG TABLET PO SCH (08:58)
[2020-01-11] MEDS: METOPROLOL TARTRATE 25 MG TABLET PO SCH (08:58)
[2020-01-11] MEDS ORDERED: FUROSEMIDE 40 MG/4 ML VIAL IV ONE (12:22)
[2020-01-11] MEDS: AZITHROMYCIN INJ 250 MG in SODIUM CHLORIDE 0.9% 250 ML IV SCH (13:36)
[2020-01-11] MEDS: cefTRIAXone 1,000 MG in SYRINGE 1 EACH IV SCH (13:36)
[2020-01-12] MEDS: LACTULOSE 20 GM/30 ML UDCUP PO SCH ×4 (02:05→20:30)
[2020-01-12 06:22] LABS: Calcium 7.9 MG/DL (8.5-10.1); Osmolality,Calculated 311.7 MOS/KG (273-304)
[2020-01-12 06:31] LABS: Hematocrit 31.7 VOL% (42.0-52.0); Hemoglobin 10.4 GM/DL (14.0-18.0); Immature Granulocytes % 1.5 %; Immature Granulocytes Absolute 0.18 #; Lymphocytes # 0.4 10*3/uL (1.4-4.0); Lymphocytes % 3.6 % (21.2-54.2); Mean Corpuscular HGB Conc 32.8 GM/DL (32-36); Mean Corpuscular Volume 86.4 FL (87-102); Mean Platelet Volume 10.3 FL (9.6-12.0); Monocytes % 6.4 % (1.7-12.7); Neutrophils % 88.5 % (38.7-73.9); Platelet Count 120 T/CUMM (130-400); Red Blood Count 3.67 MC/CUMM (3.8-5.5); Red Cell Distribution Width 14.4 % (9.3-17.3); White Blood Count 11.8 T/CUMM (4-12)
[2020-01-12] MEDS ORDERED: glyBURIDE 2.5 MG TABLET PO SCH (09:00)
[2020-01-12] MEDS: INSULIN LISPRO 100 UNIT/ML SUBCUT SCH ×4 (09:03→20:31)
[2020-01-12] MEDS: SPIRONOLACTONE 25 MG TABLET PO SCH (09:04)
[2020-01-12] MEDS: DEXAMETHASONE 10 MG/1 ML VIAL IV SCH (09:04)
[2020-01-12] MEDS: VENLAFAXINE 75 MG TABLET PO SCH (09:04)
[2020-01-12] MEDS: TAMSULOSIN 0.4 MG CAPSULE PO SCH ×2 (09:04→20:31)
[2020-01-12] MEDS: HEPARIN 5,000 UNIT/1 ML VIAL SUBCUT SCH ×2 (09:04→20:31)
[2020-01-12] MEDS: METOPROLOL TARTRATE 25 MG TABLET PO SCH (09:04)
[2020-01-12] MEDS: PANTOPRAZOLE 40 MG TABLET PO SCH (09:04)
[2020-01-12] MEDS: REMDESIVIR 100 MG in SODIUM CHLORIDE 0.9% 230 ML IV SCH (09:05)
[2020-01-12] MEDS: RIFAXIMIN 550 MG TABLET PO SCH ×2 (09:05→20:31)
[2020-01-12] MEDS: ZINC GLUCONATE 50 MG TABLET PO SCH (09:05)
[2020-01-12] MEDS: ASCORBIC ACID 500 MG TABLET PO SCH (09:05)
[2020-01-12 10:33] LABS: Band Neutrophils 1 % (0-10); Hypochromasia 2+; Lymphocytes 2 % (20-55); Platelet Estimate Decreased; Segmented Neutrophils 91 % (50-85); Total Cells Counted 100
[2020-01-12] MEDS: cefTRIAXone 1,000 MG in SYRINGE 1 EACH IV SCH (14:01)
[2020-01-12] MEDS: AZITHROMYCIN INJ 250 MG in SODIUM CHLORIDE 0.9% 250 ML IV SCH (14:01)
[2020-01-12] MEDS: glyBURIDE 2.5 MG TABLET PO SCH (20:30)
[2020-01-13] MEDS: ALBUTEROL INHALER 18 GM INH SCH ×4 (02:13→20:10)
[2020-01-13] MEDS: LACTULOSE 20 GM/30 ML UDCUP PO SCH ×4 (02:18→20:10)
[2020-01-13] MEDS: INSULIN LISPRO 100 UNIT/ML SUBCUT SCH ×4 (07:50→21:13)
[2020-01-13] MEDS: SPIRONOLACTONE 25 MG TABLET PO SCH (10:14)
[2020-01-13] MEDS: glyBURIDE 2.5 MG TABLET PO SCH ×2 (10:14→21:13)
[2020-01-13] MEDS: DEXAMETHASONE 10 MG/1 ML VIAL IV SCH (10:14)
[2020-01-13] MEDS: TAMSULOSIN 0.4 MG CAPSULE PO SCH ×2 (10:15→20:10)
[2020-01-13] MEDS: HEPARIN 5,000 UNIT/1 ML VIAL SUBCUT SCH ×2 (10:15→20:10)
[2020-01-13] MEDS: VENLAFAXINE 75 MG TABLET PO SCH (10:15)
[2020-01-13] MEDS: PANTOPRAZOLE 40 MG TABLET PO SCH (10:16)
[2020-01-13] MEDS: ASCORBIC ACID 500 MG TABLET PO SCH (10:17)
[2020-01-13] MEDS: RIFAXIMIN 550 MG TABLET PO SCH ×2 (10:18→20:10)
[2020-01-13] MEDS: METOPROLOL TARTRATE 25 MG TABLET PO SCH (10:18)
[2020-01-13] MEDS: ZINC GLUCONATE 50 MG TABLET PO SCH (10:18)
[2020-01-13] MEDS: cefTRIAXone 1,000 MG in SYRINGE 1 EACH IV SCH (13:36)
[2020-01-14] MEDS: ALBUTEROL INHALER 18 GM INH SCH ×4 (00:29→21:49)
[2020-01-14] MEDS: LACTULOSE 20 GM/30 ML UDCUP PO SCH ×4 (05:18→21:49)
[2020-01-14 05:43] LABS: Basophils % 0.1 % (0.0-0.8); Hematocrit 34.8 VOL% (42.0-52.0); Hemoglobin 11.5 GM/DL (14.0-18.0); Immature Granulocytes % 0.8 %; Immature Granulocytes Absolute 0.12 #; Lymphocytes # 0.4 10*3/uL (1.4-4.0); Lymphocytes % 2.7 % (21.2-54.2); Mean Corpuscular Volume 86.6 FL (87-102); Mean Platelet Volume 10.8 FL (9.6-12.0); Monocytes % 5.6 % (1.7-12.7); Neutrophils % 90.8 % (38.7-73.9); Platelet Count 88 T/CUMM (130-400); Red Blood Count 4.02 MC/CUMM (3.8-5.5); Red Cell Distribution Width 14.8 % (9.3-17.3); White Blood Count 14.9 T/CUMM (4-12)
[2020-01-14 06:06] LABS: Calcium 8.4 MG/DL (8.5-10.1); Osmolality,Calculated 300.5 MOS/KG (273-304)
[2020-01-14 06:07] LABS: Hypochromasia 1+; Lymphocytes 1 % (20-55); Microcytosis 1+; Ovalocytes Slight; Platelet Estimate Decreased; Segmented Neutrophils 93 % (50-85); Total Cells Counted 100
[2020-01-14 06:11] LABS: Albumin 1.5 G/DL (3.4-5.0); Bilirubin,Total 0.9 MG/DL (0.2-1.0); Calcium 8.2 MG/DL (8.5-10.1); Osmolality,Calculated 304.3 MOS/KG (273-304); Total Protein 4.9 G/DL (6.4-8.3)
[2020-01-14] MEDS: INSULIN LISPRO 100 UNIT/ML SUBCUT SCH ×5 (09:12→21:50)
[2020-01-14] MEDS: TAMSULOSIN 0.4 MG CAPSULE PO SCH ×2 (09:13→21:49)
[2020-01-14] MEDS: VENLAFAXINE 75 MG TABLET PO SCH (09:13)
[2020-01-14] MEDS: SPIRONOLACTONE 25 MG TABLET PO SCH (09:13)
[2020-01-14] MEDS: DEXAMETHASONE 10 MG/1 ML VIAL IV SCH (09:13)
[2020-01-14] MEDS: glyBURIDE 2.5 MG TABLET PO SCH ×2 (09:13→21:49)
[2020-01-14] MEDS: HEPARIN 5,000 UNIT/1 ML VIAL SUBCUT SCH ×2 (09:13→21:52)
[2020-01-14] MEDS: METOPROLOL TARTRATE 25 MG TABLET PO SCH (09:13)
[2020-01-14] MEDS: RIFAXIMIN 550 MG TABLET PO SCH ×2 (09:14→21:49)
[2020-01-14] MEDS: PANTOPRAZOLE 40 MG TABLET PO SCH (09:14)
[2020-01-14] MEDS: ASCORBIC ACID 500 MG TABLET PO SCH (09:14)
[2020-01-14] MEDS: ZINC GLUCONATE 50 MG TABLET PO SCH (09:14)
[2020-01-14] MEDS ORDERED: SODIUM POLYSTYRENE SULFATE 15 GM/60 ML BOTTLE PO STA (10:36)
[2020-01-14] MEDS: cefTRIAXone 1,000 MG in SYRINGE 1 EACH IV SCH (13:08)
[2020-01-14] MEDS: ACETAMINOPHEN 325 MG TABLET PO PRN (21:50)
[2020-01-15] MEDS: ALBUTEROL INHALER 18 GM INH SCH ×4 (01:34→21:44)
[2020-01-15] MEDS: LACTULOSE 20 GM/30 ML UDCUP PO SCH ×4 (01:35→21:43)
[2020-01-15 05:45] LABS: Basophils % 0.1 % (0.0-0.8); Hematocrit 34.6 VOL% (42.0-52.0); Hemoglobin 11.3 GM/DL (14.0-18.0); Immature Granulocytes % 0.8 %; Immature Granulocytes Absolute 0.13 #; Lymphocytes # 0.5 10*3/uL (1.4-4.0); Lymphocytes % 2.9 % (21.2-54.2); Mean Corpuscular HGB Conc 32.7 GM/DL (32-36); Mean Corpuscular Volume 86.3 FL (87-102); Mean Platelet Volume 11.4 FL (9.6-12.0); Monocytes % 5.5 % (1.7-12.7); Neutrophils % 90.7 % (38.7-73.9); Platelet Count 76 T/CUMM (130-400); Red Blood Count 4.01 MC/CUMM (3.8-5.5); Red Cell Distribution Width 14.6 % (9.3-17.3); White Blood Count 15.8 T/CUMM (4-12)
[2020-01-15 06:05] LABS: Eosinophils 1 % (0-10); Hypochromasia 1+; Lymphocytes 2 % (20-55); Microcytosis 1+; Platelet Estimate Decreased; Segmented Neutrophils 96 % (50-85); Total Cells Counted 100
[2020-01-15 06:08] LABS: Calcium 7.9 MG/DL (8.5-10.1)
[2020-01-15] MEDS: INSULIN LISPRO 100 UNIT/ML SUBCUT SCH ×4 (08:21→21:49)
[2020-01-15] MEDS: SPIRONOLACTONE 25 MG TABLET PO SCH (08:22)
[2020-01-15] MEDS: METOPROLOL TARTRATE 25 MG TABLET PO SCH (08:22)
[2020-01-15] MEDS: TAMSULOSIN 0.4 MG CAPSULE PO SCH ×2 (08:22→21:46)
[2020-01-15] MEDS: glyBURIDE 2.5 MG TABLET PO SCH ×2 (08:22→21:44)
[2020-01-15] MEDS: PANTOPRAZOLE 40 MG TABLET PO SCH (08:22)
[2020-01-15] MEDS: ASCORBIC ACID 500 MG TABLET PO SCH (08:22)
[2020-01-15] MEDS: DEXAMETHASONE 10 MG/1 ML VIAL IV SCH (08:22)
[2020-01-15] MEDS: VENLAFAXINE 75 MG TABLET PO SCH (08:22)
[2020-01-15] MEDS: HEPARIN 5,000 UNIT/1 ML VIAL SUBCUT SCH ×2 (08:22→21:52)
[2020-01-15] MEDS: ZINC GLUCONATE 50 MG TABLET PO SCH (08:23)
[2020-01-15] MEDS: RIFAXIMIN 550 MG TABLET PO SCH (08:23)
[2020-01-15 08:45] LABS: ABG Base Excess 1.5 MMOL/L (-2.5-2.5); ABG HCO3 25.7 MMOL/L (20-26); ABG Oxygen Saturation 94.4 % (95-100); ABG PCO2 36.2 MM HG (35-48); ABG PH 7.451 (7.35-7.45); ABG PO2 71.8 MM HG (80-95); ABG TCO2 22.3 MMOL/L (23-27)
[2020-01-15] MEDS ORDERED: ALUMINUM/MAGNES/SIMETH MAX STR 30 ML UDCUP PO PRN (10:27)
[2020-01-15] MEDS: FUROSEMIDE 40 MG TABLET PO SCH (12:06)
[2020-01-15] MEDS: cefTRIAXone 1,000 MG in SYRINGE 1 EACH IV SCH (13:56)
[2020-01-16] MEDS: LACTULOSE 20 GM/30 ML UDCUP PO SCH ×4 (01:07→21:24)
[2020-01-16] MEDS: ALBUTEROL INHALER 18 GM INH SCH ×4 (01:07→18:40)
[2020-01-16 03:04] LABS: ABG Base Excess 1.9 MMOL/L (-2.5-2.5); ABG Oxygen Saturation 94.3 % (95-100); ABG PH 7.476 (7.35-7.45); ABG PO2 69.1 MM HG (80-95); ABG TCO2 22.4 MMOL/L (23-27); Allen Test Positive; Pt O2 Delivery Device Other
[2020-01-16 05:51] LABS: Basophils % 0.1 % (0.0-0.8); Eosinophils % 0.1 % (0.00-10.9); Hematocrit 34.4 VOL% (42.0-52.0); Hemoglobin 11.5 GM/DL (14.0-18.0); Immature Granulocytes % 0.8 %; Immature Granulocytes Absolute 0.11 #; Lymphocytes # 0.4 10*3/uL (1.4-4.0); Lymphocytes % 3.2 % (21.2-54.2); Mean Corpuscular HGB Conc 33.4 GM/DL (32-36); Mean Corpuscular Volume 86.6 FL (87-102); Mean Platelet Volume 11.4 FL (9.6-12.0); Monocytes % 6.2 % (1.7-12.7); Neutrophils % 89.6 % (38.7-73.9); Red Blood Count 3.97 MC/CUMM (3.8-5.5); Red Cell Distribution Width 14.9 % (9.3-17.3); White Blood Count 13.6 T/CUMM (4-12)
[2020-01-16 05:53] LABS: Platelet Count 79 T/CUMM (130-400)
[2020-01-16 05:54] LABS: Calcium 7.5 MG/DL (8.5-10.1); Osmolality,Calculated 293.1 MOS/KG (273-304)
[2020-01-16 06:17] LABS: Hypochromasia 1+; Lymphocytes 5 % (20-55); Microcytosis Slight; Ovalocytes Slight; Platelet Estimate Decreased; Segmented Neutrophils 93 % (50-85); Total Cells Counted 100
[2020-01-16] MEDS: glyBURIDE 2.5 MG TABLET PO SCH ×2 (09:41→23:04)
[2020-01-16] MEDS: SPIRONOLACTONE 25 MG TABLET PO SCH (09:41)
[2020-01-16] MEDS: TAMSULOSIN 0.4 MG CAPSULE PO SCH ×2 (09:41→23:05)
[2020-01-16] MEDS: VENLAFAXINE 75 MG TABLET PO SCH (09:41)
[2020-01-16] MEDS: INSULIN LISPRO 100 UNIT/ML SUBCUT SCH ×4 (09:41→23:06)
[2020-01-16] MEDS: HEPARIN 5,000 UNIT/1 ML VIAL SUBCUT SCH ×2 (09:41→23:06)
[2020-01-16] MEDS: FUROSEMIDE 40 MG TABLET PO SCH (09:41)
[2020-01-16] MEDS: DEXAMETHASONE 10 MG/1 ML VIAL IV SCH (09:41)
[2020-01-16] MEDS: METOPROLOL TARTRATE 25 MG TABLET PO SCH (09:42)
[2020-01-16] MEDS: RIFAXIMIN 550 MG TABLET PO SCH ×2 (09:42→23:05)
[2020-01-16] MEDS: PANTOPRAZOLE 40 MG TABLET PO SCH (09:42)
[2020-01-16] MEDS: ASCORBIC ACID 500 MG TABLET PO SCH (09:42)
[2020-01-16] MEDS: ZINC GLUCONATE 50 MG TABLET PO SCH (09:42)
[2020-01-16] MEDS: cefTRIAXone 1,000 MG in SYRINGE 1 EACH IV SCH (12:59)
[2020-01-16] MEDS ORDERED: FUROSEMIDE 40 MG/4 ML VIAL IV ONE (14:43)
[2020-01-17] MEDS: ALBUTEROL INHALER 18 GM INH SCH ×4 (00:20→18:18)
[2020-01-17] MEDS: LACTULOSE 20 GM/30 ML UDCUP PO SCH ×4 (01:58→20:47)
[2020-01-17 06:20] LABS: Basophils % 0.1 % (0.0-0.8); Hematocrit 37.1 VOL% (42.0-52.0); Hemoglobin 12.4 GM/DL (14.0-18.0); Immature Granulocytes % 0.7 %; Immature Granulocytes Absolute 0.09 #; Lymphocytes # 0.5 10*3/uL (1.4-4.0); Lymphocytes % 3.6 % (21.2-54.2); Mean Corpuscular HGB Conc 33.4 GM/DL (32-36); Mean Corpuscular Volume 86.5 FL (87-102); Mean Platelet Volume 12.1 FL (9.6-12.0); Monocytes % 7.3 % (1.7-12.7); Neutrophils % 88.3 % (38.7-73.9); Platelet Count 85 T/CUMM (130-400); Red Blood Count 4.29 MC/CUMM (3.8-5.5); Red Cell Distribution Width 15.5 % (9.3-17.3); White Blood Count 13.2 T/CUMM (4-12)
[2020-01-17 06:36] LABS: Calcium 7.9 MG/DL (8.5-10.1); Ferritin 127.3 ng/ml (26-388); Osmolality,Calculated 296.7 MOS/KG (273-304)
[2020-01-17 06:38] LABS: Hypochromasia 1+; Lymphocytes 2 % (20-55); Microcytosis 1+; Platelet Estimate Decreased; Segmented Neutrophils 92 % (50-85); Total Cells Counted 100
[2020-01-17] MEDS: DEXAMETHASONE 10 MG/1 ML VIAL IV SCH (08:54)
[2020-01-17] MEDS: SPIRONOLACTONE 25 MG TABLET PO SCH (08:54)
[2020-01-17] MEDS: TAMSULOSIN 0.4 MG CAPSULE PO SCH ×2 (08:54→21:53)
[2020-01-17] MEDS: glyBURIDE 2.5 MG TABLET PO SCH ×2 (08:54→21:52)
[2020-01-17] MEDS: VENLAFAXINE 75 MG TABLET PO SCH (08:54)
[2020-01-17] MEDS: METOPROLOL TARTRATE 25 MG TABLET PO SCH (08:54)
[2020-01-17] MEDS: HEPARIN 5,000 UNIT/1 ML VIAL SUBCUT SCH ×2 (08:54→21:56)
[2020-01-17] MEDS: ASCORBIC ACID 500 MG TABLET PO SCH (08:54)
[2020-01-17] MEDS: PANTOPRAZOLE 40 MG TABLET PO SCH (08:54)
[2020-01-17] MEDS: RIFAXIMIN 550 MG TABLET PO SCH ×2 (08:54→21:54)
[2020-01-17] MEDS: ZINC GLUCONATE 50 MG TABLET PO SCH (08:54)
[2020-01-17] MEDS: FUROSEMIDE 40 MG TABLET PO SCH (08:54)
[2020-01-17] MEDS: INSULIN LISPRO 100 UNIT/ML SUBCUT SCH ×4 (09:08→21:55)
[2020-01-18] MEDS: ALBUTEROL INHALER 18 GM INH SCH ×3 (00:50→13:42)
[2020-01-18] MEDS: LACTULOSE 20 GM/30 ML UDCUP PO SCH ×3 (01:09→14:20)
[2020-01-18 06:19] LABS: Basophils % 0.1 % (0.0-0.8); Hematocrit 36.6 VOL% (42.0-52.0); Hemoglobin 12.2 GM/DL (14.0-18.0); Immature Granulocytes % 0.6 %; Immature Granulocytes Absolute 0.08 #; Lymphocytes # 0.6 10*3/uL (1.4-4.0); Mean Corpuscular HGB Conc 33.3 GM/DL (32-36); Mean Corpuscular Volume 86.3 FL (87-102); Mean Platelet Volume 11.3 FL (9.6-12.0); Neutrophils % 88.3 % (38.7-73.9); Red Blood Count 4.24 MC/CUMM (3.8-5.5); Red Cell Distribution Width 15.5 % (9.3-17.3); White Blood Count 14.1 T/CUMM (4-12)
[2020-01-18 06:33] LABS: Platelet Count 79 T/CUMM (130-400)
[2020-01-18 06:35] LABS: Calcium 7.9 MG/DL (8.5-10.1); Osmolality,Calculated 296.7 MOS/KG (273-304)
[2020-01-18 07:08] LABS: Anisocytosis 1+; Band Neutrophils 3 % (0-10); Lymphocytes 2 % (20-55); Macrocytosis Slight; Platelet Estimate Decreased; Segmented Neutrophils 88 % (50-85); Smudge Cells Few; Total Cells Counted 100
[2020-01-18] MEDS: SPIRONOLACTONE 25 MG TABLET PO SCH (08:46)
[2020-01-18] MEDS: glyBURIDE 2.5 MG TABLET PO SCH (08:46)
[2020-01-18] MEDS: TAMSULOSIN 0.4 MG CAPSULE PO SCH (08:46)
[2020-01-18] MEDS: VENLAFAXINE 75 MG TABLET PO SCH (08:46)
[2020-01-18] MEDS: RIFAXIMIN 550 MG TABLET PO SCH (08:46)
[2020-01-18] MEDS: ZINC GLUCONATE 50 MG TABLET PO SCH (08:46)
[2020-01-18] MEDS: PANTOPRAZOLE 40 MG TABLET PO SCH (08:47)
[2020-01-18] MEDS: ASCORBIC ACID 500 MG TABLET PO SCH (08:47)
[2020-01-18] MEDS: METOPROLOL TARTRATE 25 MG TABLET PO SCH (08:47)
[2020-01-18] MEDS: FUROSEMIDE 40 MG TABLET PO SCH (08:47)
[2020-01-18] MEDS: ACETAMINOPHEN 325 MG TABLET PO PRN (08:48)
[2020-01-18] MEDS: INSULIN LISPRO 100 UNIT/ML SUBCUT SCH ×3 (10:34→16:31)
[2020-01-18] MEDS: HEPARIN 5,000 UNIT/1 ML VIAL SUBCUT SCH (10:48)
[2020-01-18 11:09] VITALS: BP 132/80
== END 2020-01-18 16:30 | disposition home health service (06) | DRG 177 ==
LOC: N.ED 09:29 → N.EDINP 11:52 → SUATTDRO 11:52 → N.CC 12:52 → N.2E 01-09 14:03
PROVIDERS: ADMIT Internal Medicine; ATTEND Internal Medicine

== ENCOUNTER 2020-01-26 18:33 | Inpatient (IN) ==
[2020-01-26] MEDS ORDERED: SODIUM CHLORIDE 0.9% 1,000 ML IV STA (19:48)
[2020-01-26 21:05] LABS: Basophils % 0.1 % (0.0-0.8); Eosinophils # 0.3 10*3/uL (0.0-0.87); Eosinophils % 2.1 % (0.00-10.9); Hemoglobin 12.6 GM/DL (14.0-18.0); Immature Granulocytes % 0.7 %; Lymphocytes # 0.8 10*3/uL (1.4-4.0); Lymphocytes % 4.9 % (21.2-54.2); Mean Corpuscular HGB Conc 33.2 GM/DL (32-36); Mean Corpuscular Volume 87.6 FL (87-102); Mean Platelet Volume 10.6 FL (9.6-12.0); Monocytes % 3.9 % (1.7-12.7); Neutrophils % 88.3 % (38.7-73.9); Platelet Count 67 T/CUMM (130-400); Red Blood Count 4.34 MC/CUMM (3.8-5.5); Red Cell Distribution Width 16.2 % (9.3-17.3); White Blood Count 15.4 T/CUMM (4-12)
[2020-01-26 21:16] LABS: INR 1.3; PT Patient Result 13.8 SECS (9.8-11.9)
[2020-01-26 21:26] LABS: Bilirubin,Urine Negative (Negative); Blood, Urine Negative (Negative); Glucose,Urine (UA) Negative (Negative); Hyaline Casts,Urine 1 /LPF (0-3); Ketones,Urine Negative (Negative); Mucus,Urine Occasional /LPF (Occasional); Nitrite,Urine Negative (Negative); Protein,Urine Negative; RBC,Urine 1 /HPF (0-4); Urine Appearance CLEAR (Clear); Urine Color Amber (Yellow); Urine Specific Gravity 1.014 (1.001-1.035); WBC,Urine 1 /HPF (0-6)
[2020-01-26 21:27] LABS: Albumin 1.5 G/DL (3.4-5.0); Bilirubin,Total 2.6 MG/DL (0.2-1.0); Calcium 7.6 MG/DL (8.5-10.1); Osmolality,Calculated 301.8 MOS/KG (273-304); Total Protein 4.4 G/DL (6.4-8.3)
[2020-01-26 21:37] LABS: Barbiturates Screen,Urine Negative (Negative); Benzodiazepines Screen,Urine Negative (Negative); Cannabinoid Screen,Urine Negative (Negative); Opiate Screen,Urine Negative (Negative); Phencyclidine Screen,Urine Negative (Negative)
[2020-01-26] MEDS ORDERED: ACETAMINOPHEN 325 MG TABLET PO PRN (23:25)
[2020-01-26] MEDS ORDERED: ALBUTEROL SULFATE INH PRN (23:25)
[2020-01-26] MEDS ORDERED: DEXTROSE 50% 25 GM/50 ML VIAL IV PRN (23:29)
[2020-01-26] MEDS ORDERED: ONDANSETRON 4 MG/2 ML VIAL IV PRN (23:29)
[2020-01-26] MEDS ORDERED: GLUCAGON 1 MG VIAL IM PRN (23:29)
[2020-01-26] MEDS ORDERED: cefTRIAXone 1,000 MG VIAL ONE (23:52)
[2020-01-27] MEDS: cefTRIAXone 2,000 MG in SYRINGE 1 EACH IV SCH (00:17)
[2020-01-27] MEDS: LACTULOSE 20 GM/30 ML UDCUP PO SCH ×6 (05:09→20:56)
[2020-01-27] MEDS: SPIRONOLACTONE 25 MG TABLET PO SCH ×3 (05:14→20:47)
[2020-01-27] MEDS: RIFAXIMIN 550 MG TABLET PO SCH ×3 (05:14→20:47)
[2020-01-27] MEDS: TAMSULOSIN 0.4 MG CAPSULE PO SCH ×3 (05:14→20:47)
[2020-01-27] MEDS: INSULIN LISPRO 100 UNIT/ML SUBCUT SCH ×5 (05:17→20:46)
[2020-01-27 06:07] LABS: Basophils % 0.1 % (0.0-0.8); Eosinophils # 0.4 10*3/uL (0.0-0.87); Hematocrit 38.8 VOL% (42.0-52.0); Hemoglobin 12.9 GM/DL (14.0-18.0); Immature Granulocytes % 0.4 %; Immature Granulocytes Absolute 0.05 #; Lymphocytes # 0.8 10*3/uL (1.4-4.0); Lymphocytes % 5.9 % (21.2-54.2); Mean Corpuscular HGB Conc 33.2 GM/DL (32-36); Mean Platelet Volume 11.8 FL (9.6-12.0); Neutrophils % 86.6 % (38.7-73.9); Platelet Count 46 T/CUMM (130-400); Red Blood Count 4.41 MC/CUMM (3.8-5.5); Red Cell Distribution Width 16.5 % (9.3-17.3); White Blood Count 13.2 T/CUMM (4-12)
[2020-01-27 06:24] LABS: Albumin 1.6 G/DL (3.4-5.0); Bilirubin,Total 2.8 MG/DL (0.2-1.0); Calcium 7.9 MG/DL (8.5-10.1); Total Protein 4.7 G/DL (6.4-8.3)
[2020-01-27 06:46] LABS: Anisocytosis Slight; Platelet Estimate Decreased
[2020-01-27] MEDS: ASCORBIC ACID 500 MG TABLET PO SCH (09:21)
[2020-01-27] MEDS: PANTOPRAZOLE 40 MG TABLET PO SCH (09:22)
[2020-01-27] MEDS: VENLAFAXINE 75 MG TABLET PO SCH (09:22)
[2020-01-27] MEDS: GABAPENTIN 100 MG CAPSULE PO SCH ×3 (09:22→20:46)
[2020-01-27] MEDS: METOPROLOL TARTRATE 25 MG TABLET PO SCH (09:22)
[2020-01-27] MEDS: ZINC GLUCONATE 50 MG TABLET PO SCH (09:22)
[2020-01-27] MEDS: LUBIPROSTONE 24 MCG CAPSULE PO SCH ×2 (09:23→17:20)
[2020-01-27] MEDS: LOSARTAN 25 MG TABLET PO SCH (09:23)
[2020-01-27] MEDS: ASPIRIN 325 MG TABLET PO SCH (09:23)
[2020-01-27] MEDS: FUROSEMIDE 40 MG TABLET PO SCH (09:23)
[2020-01-28] MEDS: cefTRIAXone 2,000 MG in SYRINGE 1 EACH IV SCH (00:34)
[2020-01-28] MEDS: LACTULOSE 20 GM/30 ML UDCUP PO SCH ×6 (00:53→22:52)
[2020-01-28 06:23] LABS: Basophils % 0.3 % (0.0-0.8); Eosinophils # 1.4 10*3/uL (0.0-0.87); Eosinophils % 9.6 % (0.00-10.9); Hematocrit 37.7 VOL% (42.0-52.0); Hemoglobin 12.6 GM/DL (14.0-18.0); Immature Granulocytes % 0.4 %; Immature Granulocytes Absolute 0.05 #; Lymphocytes # 1.3 10*3/uL (1.4-4.0); Mean Corpuscular HGB Conc 33.4 GM/DL (32-36); Mean Corpuscular Volume 88.7 FL (87-102); Mean Platelet Volume 11.8 FL (9.6-12.0); Monocytes % 6.5 % (1.7-12.7); Neutrophils % 74.2 % (38.7-73.9); Red Blood Count 4.25 MC/CUMM (3.8-5.5); Red Cell Distribution Width 17.2 % (9.3-17.3); White Blood Count 14.1 T/CUMM (4-12)
[2020-01-28 06:24] LABS: Platelet Count 43 T/CUMM (130-400)
[2020-01-28 06:54] LABS: Albumin 1.1 G/DL (3.4-5.0); Bilirubin,Total 2.1 MG/DL (0.2-1.0); Calcium 7.5 MG/DL (8.5-10.1); Osmolality,Calculated 288.7 MOS/KG (273-304); Total Protein 4.7 G/DL (6.4-8.3)
[2020-01-28] MEDS: LOSARTAN 25 MG TABLET PO SCH (09:55)
[2020-01-28] MEDS: VENLAFAXINE 75 MG TABLET PO SCH (09:55)
[2020-01-28] MEDS: ASPIRIN 325 MG TABLET PO SCH (09:55)
[2020-01-28] MEDS: FUROSEMIDE 40 MG TABLET PO SCH (09:57)
[2020-01-28] MEDS: METOPROLOL TARTRATE 25 MG TABLET PO SCH (09:57)
[2020-01-28] MEDS: RIFAXIMIN 550 MG TABLET PO SCH ×2 (09:57→22:46)
[2020-01-28] MEDS: ASCORBIC ACID 500 MG TABLET PO SCH (09:57)
[2020-01-28] MEDS: LUBIPROSTONE 24 MCG CAPSULE PO SCH ×2 (09:57→17:15)
[2020-01-28] MEDS: GABAPENTIN 100 MG CAPSULE PO SCH ×3 (09:58→22:46)
[2020-01-28] MEDS: SPIRONOLACTONE 25 MG TABLET PO SCH ×2 (09:58→23:14)
[2020-01-28] MEDS: ZINC GLUCONATE 50 MG TABLET PO SCH (09:58)
[2020-01-28] MEDS: PANTOPRAZOLE 40 MG TABLET PO SCH (09:58)
[2020-01-28] MEDS: TAMSULOSIN 0.4 MG CAPSULE PO SCH ×2 (09:58→22:49)
[2020-01-28] MEDS: INSULIN LISPRO 100 UNIT/ML SUBCUT SCH ×4 (10:00→22:53)
[2020-01-28] MEDS: POTASSIUM CHLORIDE 20 MEQ TABLET PO PRN ×4 (12:44→19:13)
[2020-01-28] MEDS ORDERED: SODIUM CHLORIDE 0.9% 500 ML IV ONE (19:29)
[2020-01-28 19:50] LABS: Basophils % 0.3 % (0.0-0.8); Eosinophils # 1.2 10*3/uL (0.0-0.87); Eosinophils % 10.5 % (0.00-10.9); Hematocrit 32.9 VOL% (42.0-52.0); Hemoglobin 10.8 GM/DL (14.0-18.0); Immature Granulocytes % 0.4 %; Immature Granulocytes Absolute 0.05 #; Lymphocytes # 1.3 10*3/uL (1.4-4.0); Lymphocytes % 11.1 % (21.2-54.2); Mean Corpuscular HGB Conc 32.8 GM/DL (32-36); Mean Corpuscular Volume 90.4 FL (87-102); Mean Platelet Volume 11.6 FL (9.6-12.0); Monocytes % 5.6 % (1.7-12.7); Neutrophils % 72.1 % (38.7-73.9); Platelet Count 46 T/CUMM (130-400); Red Blood Count 3.64 MC/CUMM (3.8-5.5); Red Cell Distribution Width 17.2 % (9.3-17.3); White Blood Count 11.7 T/CUMM (4-12)
[2020-01-28 20:17] LABS: Albumin 1.1 G/DL (3.4-5.0); Bilirubin,Total 0.9 MG/DL (0.2-1.0); Osmolality,Calculated 298.3 MOS/KG (273-304); Total Protein 3.6 G/DL (6.4-8.3)
[2020-01-28 21:01] LABS: Eosinophils 15 % (0-10); Lymphocytes 8 % (20-55); Segmented Neutrophils 75 % (50-85); Total Cells Counted 100
[2020-01-28 21:02] LABS: Platelet Estimate Decreased
[2020-01-29] MEDS: cefTRIAXone 2,000 MG in SYRINGE 1 EACH IV SCH (00:32)
[2020-01-29] MEDS: HEPARIN DRIP 25,000 UNITS/500 ML PREMIX IV SCH (02:42)
[2020-01-29] MEDS: LACTULOSE 20 GM/30 ML UDCUP PO SCH ×6 (03:24→20:36)
[2020-01-29] MEDS ORDERED: SODIUM CHLORIDE 0.9% 500 ML IV ONE (08:51)
[2020-01-29] MEDS: INSULIN LISPRO 100 UNIT/ML SUBCUT SCH ×4 (09:03→23:25)
[2020-01-29] MEDS: TAMSULOSIN 0.4 MG CAPSULE PO SCH ×2 (09:31→20:34)
[2020-01-29] MEDS: ASPIRIN 325 MG TABLET PO SCH (09:31)
[2020-01-29] MEDS: LUBIPROSTONE 24 MCG CAPSULE PO SCH ×2 (09:31→17:18)
[2020-01-29] MEDS: VENLAFAXINE 75 MG TABLET PO SCH (09:32)
[2020-01-29] MEDS: PANTOPRAZOLE 40 MG TABLET PO SCH (09:32)
[2020-01-29] MEDS: ASCORBIC ACID 500 MG TABLET PO SCH (09:32)
[2020-01-29] MEDS: GABAPENTIN 100 MG CAPSULE PO SCH ×3 (09:32→20:34)
[2020-01-29] MEDS: ZINC GLUCONATE 50 MG TABLET PO SCH (09:32)
[2020-01-29] MEDS: POTASSIUM CHLORIDE 20 MEQ TABLET PO PRN ×3 (09:34→15:23)
[2020-01-29] MEDS: LOSARTAN 25 MG TABLET PO SCH (09:40)
[2020-01-29] MEDS: RIFAXIMIN 550 MG TABLET PO SCH ×2 (09:41→20:35)
[2020-01-29] MEDS: FUROSEMIDE 40 MG TABLET PO SCH (09:41)
[2020-01-29] MEDS: METOPROLOL TARTRATE 25 MG TABLET PO SCH (09:41)
[2020-01-29] MEDS: SPIRONOLACTONE 25 MG TABLET PO SCH ×2 (09:41→20:37)
[2020-01-29] MEDS ORDERED: FUROSEMIDE 20 MG TABLET PO SCH (10:49)
[2020-01-29 13:34] LABS: Basophils % 0.3 % (0.0-0.8); Eosinophils # 1.4 10*3/uL (0.0-0.87); Eosinophils % 15.3 % (0.00-10.9); Hematocrit 32.1 VOL% (42.0-52.0); Hemoglobin 10.8 GM/DL (14.0-18.0); Immature Granulocytes % 0.3 %; Immature Granulocytes Absolute 0.03 #; Lymphocytes # 1.1 10*3/uL (1.4-4.0); Lymphocytes % 12.3 % (21.2-54.2); Mean Corpuscular HGB Conc 33.6 GM/DL (32-36); Mean Corpuscular Volume 89.7 FL (87-102); Mean Platelet Volume 11.6 FL (9.6-12.0); Monocytes % 5.7 % (1.7-12.7); Neutrophils % 66.1 % (38.7-73.9); Platelet Count 51 T/CUMM (130-400); Red Blood Count 3.58 MC/CUMM (3.8-5.5); Red Cell Distribution Width 17.6 % (9.3-17.3); White Blood Count 9.1 T/CUMM (4-12)
[2020-01-29 13:52] LABS: Calcium 6.8 MG/DL (8.5-10.1); Osmolality,Calculated 292.8 MOS/KG (273-304)
[2020-01-29] MEDS: MENTHOL/ZINC OXIDE OINT 71 GM JAR TOP SCH ×2 (15:23→20:35)
[2020-01-29 18:09] LABS: Eosinophils 14 % (0-10); Lymphocytes 6 % (20-55); Platelet Estimate Decreased; Segmented Neutrophils 79 % (50-85); Total Cells Counted 100
[2020-01-29 18:10] LABS: Anisocytosis Slight
[2020-01-30] MEDS: cefTRIAXone 2,000 MG in SYRINGE 1 EACH IV SCH (01:02)
[2020-01-30] MEDS: LACTULOSE 20 GM/30 ML UDCUP PO SCH ×6 (01:03→20:52)
[2020-01-30 05:56] LABS: Basophils # 0.1 10*3/uL (0.0-0.2); Basophils % 0.6 % (0.0-0.8); Eosinophils # 1.7 10*3/uL (0.0-0.87); Eosinophils % 15.9 % (0.00-10.9); Hematocrit 33.6 VOL% (42.0-52.0); Hemoglobin 11.3 GM/DL (14.0-18.0); Immature Granulocytes % 0.3 %; Immature Granulocytes Absolute 0.03 #; Lymphocytes # 1.4 10*3/uL (1.4-4.0); Lymphocytes % 12.9 % (21.2-54.2); Mean Corpuscular HGB Conc 33.6 GM/DL (32-36); Mean Platelet Volume 11.8 FL (9.6-12.0); Monocytes % 8.9 % (1.7-12.7); Neutrophils % 61.4 % (38.7-73.9); Red Blood Count 3.82 MC/CUMM (3.8-5.5); Red Cell Distribution Width 17.7 % (9.3-17.3); White Blood Count 10.7 T/CUMM (4-12)
[2020-01-30 05:59] LABS: Platelet Count 72 T/CUMM (130-400)
[2020-01-30] MEDS: HEPARIN DRIP 25,000 UNITS/500 ML PREMIX IV SCH (06:12)
[2020-01-30 06:22] LABS: Uric Acid 8.5 MG/DL (3.5-7.2)
[2020-01-30 06:30] LABS: Eosinophils 17 % (0-10); Lymphocytes 5 % (20-55); Segmented Neutrophils 74 % (50-85); Total Cells Counted 100
[2020-01-30 06:31] LABS: Burr Cells Slight; Hypochromasia 1+; Microcytosis 1+; Ovalocytes Slight; Platelet Estimate Decreased
[2020-01-30 06:33] LABS: Calcium 7.2 MG/DL (8.5-10.1)
[2020-01-30] MEDS ORDERED: SODIUM CHLORIDE 0.45% 500 ML IV ONE (07:37)
[2020-01-30] MEDS ORDERED: SODIUM CHLORIDE 0.45% 1,000 ML IV SCH (08:05)
[2020-01-30] MEDS: ASPIRIN 325 MG TABLET PO SCH (09:07)
[2020-01-30] MEDS: RIFAXIMIN 550 MG TABLET PO SCH ×2 (09:08→20:50)
[2020-01-30] MEDS: LUBIPROSTONE 24 MCG CAPSULE PO SCH ×2 (09:08→16:26)
[2020-01-30] MEDS: VENLAFAXINE 75 MG TABLET PO SCH (09:08)
[2020-01-30] MEDS: ZINC GLUCONATE 50 MG TABLET PO SCH (09:08)
[2020-01-30] MEDS: PANTOPRAZOLE 40 MG TABLET PO SCH (09:08)
[2020-01-30] MEDS: ASCORBIC ACID 500 MG TABLET PO SCH (09:08)
[2020-01-30] MEDS: MENTHOL/ZINC OXIDE OINT 71 GM JAR TOP SCH ×2 (09:08→21:06)
[2020-01-30] MEDS: TAMSULOSIN 0.4 MG CAPSULE PO SCH ×2 (09:08→20:50)
[2020-01-30] MEDS: INSULIN LISPRO 100 UNIT/ML SUBCUT SCH ×4 (09:09→20:51)
[2020-01-30] MEDS: SPIRONOLACTONE 25 MG TABLET PO SCH ×2 (09:12→20:50)
[2020-01-30] MEDS: GABAPENTIN 100 MG CAPSULE PO SCH ×3 (09:12→20:50)
[2020-01-31] MEDS: LACTULOSE 20 GM/30 ML UDCUP PO SCH ×7 (01:06→23:57)
[2020-01-31] MEDS: cefTRIAXone 2,000 MG in SYRINGE 1 EACH IV SCH ×2 (01:11→23:57)
[2020-01-31 06:03] LABS: Basophils # 0.1 10*3/uL (0.0-0.2); Basophils % 0.6 % (0.0-0.8); Eosinophils # 1.6 10*3/uL (0.0-0.87); Eosinophils % 16.6 % (0.00-10.9); Hematocrit 33.1 VOL% (42.0-52.0); Hemoglobin 11.1 GM/DL (14.0-18.0); Immature Granulocytes % 0.3 %; Immature Granulocytes Absolute 0.03 #; Lymphocytes # 1.2 10*3/uL (1.4-4.0); Lymphocytes % 12.8 % (21.2-54.2); Mean Corpuscular HGB Conc 33.5 GM/DL (32-36); Mean Corpuscular Volume 87.8 FL (87-102); Mean Platelet Volume 10.9 FL (9.6-12.0); Monocytes % 10.9 % (1.7-12.7); Neutrophils % 58.8 % (38.7-73.9); Platelet Count 79 T/CUMM (130-400); Red Blood Count 3.77 MC/CUMM (3.8-5.5); Red Cell Distribution Width 17.8 % (9.3-17.3); White Blood Count 9.4 T/CUMM (4-12)
[2020-01-31] MEDS ORDERED: SODIUM CHLORIDE 0.9% 500 ML IV ONE (06:21)
[2020-01-31 06:41] LABS: Anisocytosis 2+; Band Neutrophils 6 % (0-10); Burr Cells Few; Eosinophils 20 % (0-10); Lymphocytes 8 % (20-55); Platelet Estimate Decreased; Segmented Neutrophils 57 % (50-85); Tear Drop Cells Few; Total Cells Counted 100
[2020-01-31 07:28] LABS: Albumin 1.1 G/DL (3.4-5.0); Bilirubin,Total 0.86 MG/DL (0.2-1.0); Calcium 7.2 MG/DL (8.5-10.1)
[2020-01-31 07:29] LABS: Osmolality,Calculated 282.4 MOS/KG (273-304)
[2020-01-31] MEDS: ASCORBIC ACID 500 MG TABLET PO SCH (09:23)
[2020-01-31] MEDS: MENTHOL/ZINC OXIDE OINT 71 GM JAR TOP SCH ×2 (09:24→20:08)
[2020-01-31] MEDS: VENLAFAXINE 75 MG TABLET PO SCH (09:24)
[2020-01-31] MEDS: RIFAXIMIN 550 MG TABLET PO SCH ×2 (09:24→20:08)
[2020-01-31] MEDS: ASPIRIN 325 MG TABLET PO SCH (09:24)
[2020-01-31] MEDS: ZINC GLUCONATE 50 MG TABLET PO SCH (09:24)
[2020-01-31] MEDS: LUBIPROSTONE 24 MCG CAPSULE PO SCH ×2 (09:24→16:04)
[2020-01-31] MEDS: PANTOPRAZOLE 40 MG TABLET PO SCH (09:25)
[2020-01-31] MEDS: GABAPENTIN 100 MG CAPSULE PO SCH ×3 (09:25→20:08)
[2020-01-31] MEDS: CLOPIDOGREL 75 MG TABLET PO SCH (09:25)
[2020-01-31] MEDS: TAMSULOSIN 0.4 MG CAPSULE PO SCH ×2 (09:25→20:08)
[2020-01-31] MEDS: INSULIN LISPRO 100 UNIT/ML SUBCUT SCH ×4 (09:25→20:00)
[2020-01-31] MEDS: SPIRONOLACTONE 25 MG TABLET PO SCH (09:28)
[2020-02-01] MEDS: LACTULOSE 20 GM/30 ML UDCUP PO SCH ×5 (05:54→20:47)
[2020-02-01 06:10] LABS: Basophils % 0.4 % (0.0-0.8); Eosinophils # 1.6 10*3/uL (0.0-0.87); Eosinophils % 16.4 % (0.00-10.9); Hemoglobin 10.9 GM/DL (14.0-18.0); Immature Granulocytes % 0.3 %; Immature Granulocytes Absolute 0.03 #; Lymphocytes # 1.1 10*3/uL (1.4-4.0); Lymphocytes % 11.8 % (21.2-54.2); Mean Corpuscular Volume 87.5 FL (87-102); Mean Platelet Volume 10.3 FL (9.6-12.0); Monocytes % 12.4 % (1.7-12.7); Neutrophils % 58.7 % (38.7-73.9); Platelet Count 103 T/CUMM (130-400); Red Blood Count 3.77 MC/CUMM (3.8-5.5); White Blood Count 9.5 T/CUMM (4-12)
[2020-02-01 06:45] LABS: Eosinophils 17 % (0-10); Hypochromasia Slight; Lymphocytes 5 % (20-55); Microcytosis Slight; Platelet Estimate Adequate; Segmented Neutrophils 67 % (50-85); Total Cells Counted 100
[2020-02-01 06:49] LABS: Calcium 7.5 MG/DL (8.5-10.1); Osmolality,Calculated 280.8 MOS/KG (273-304)
[2020-02-01] MEDS ORDERED: ALBUMIN 25% 25 GM in PREMIX 1 EACH IV ONE (09:00)
[2020-02-01] MEDS: VENLAFAXINE 75 MG TABLET PO SCH (09:12)
[2020-02-01] MEDS: ASPIRIN 325 MG TABLET PO SCH (09:12)
[2020-02-01] MEDS: ZINC GLUCONATE 50 MG TABLET PO SCH (09:12)
[2020-02-01] MEDS: RIFAXIMIN 550 MG TABLET PO SCH ×2 (09:12→20:47)
[2020-02-01] MEDS: LUBIPROSTONE 24 MCG CAPSULE PO SCH ×2 (09:12→17:51)
[2020-02-01] MEDS: INSULIN LISPRO 100 UNIT/ML SUBCUT SCH ×4 (09:12→20:47)
[2020-02-01] MEDS: PANTOPRAZOLE 40 MG TABLET PO SCH (09:13)
[2020-02-01] MEDS: MENTHOL/ZINC OXIDE OINT 71 GM JAR TOP SCH ×2 (09:13→20:52)
[2020-02-01] MEDS: ASCORBIC ACID 500 MG TABLET PO SCH (09:13)
[2020-02-01] MEDS: CLOPIDOGREL 75 MG TABLET PO SCH (09:13)
[2020-02-01] MEDS: GABAPENTIN 100 MG CAPSULE PO SCH ×3 (09:13→20:47)
[2020-02-01] MEDS: ALBUMIN 25% 12.5 GM in PREMIX 1 EACH IV SCH ×2 (14:36→22:22)
[2020-02-01] MEDS: TAMSULOSIN 0.4 MG CAPSULE PO SCH (20:47)
[2020-02-02] MEDS: LACTULOSE 20 GM/30 ML UDCUP PO SCH ×6 (00:23→21:23)
[2020-02-02] MEDS: cefTRIAXone 2,000 MG in SYRINGE 1 EACH IV SCH (00:23)
[2020-02-02] MEDS: ALBUMIN 25% 12.5 GM in PREMIX 1 EACH IV SCH (05:25)
[2020-02-02 06:49] LABS: Basophils % 0.2 % (0.0-0.8); Eosinophils # 1.5 10*3/uL (0.0-0.87); Eosinophils % 18.8 % (0.00-10.9); Hematocrit 28.7 VOL% (42.0-52.0); Hemoglobin 9.9 GM/DL (14.0-18.0); Immature Granulocytes % 0.2 %; Immature Granulocytes Absolute 0.02 #; Lymphocytes # 0.9 10*3/uL (1.4-4.0); Mean Corpuscular HGB Conc 34.5 GM/DL (32-36); Mean Corpuscular Volume 86.4 FL (87-102); Mean Platelet Volume 9.8 FL (9.6-12.0); Monocytes % 14.9 % (1.7-12.7); Neutrophils % 54.9 % (38.7-73.9); Platelet Count 101 T/CUMM (130-400); Red Blood Count 3.32 MC/CUMM (3.8-5.5); Red Cell Distribution Width 17.7 % (9.3-17.3); White Blood Count 8.2 T/CUMM (4-12)
[2020-02-02 07:04] LABS: Calcium 7.6 MG/DL (8.5-10.1); Osmolality,Calculated 280.7 MOS/KG (273-304)
[2020-02-02 07:10] LABS: Eosinophils 23 % (0-10); Hypochromasia 1+; Lymphocytes 8 % (20-55); Microcytosis 1+; Platelet Estimate Decreased; Segmented Neutrophils 62 % (50-85); Total Cells Counted 100
[2020-02-02] MEDS: INSULIN LISPRO 100 UNIT/ML SUBCUT SCH ×4 (08:55→21:20)
[2020-02-02] MEDS: ASPIRIN 325 MG TABLET PO SCH (08:55)
[2020-02-02] MEDS: ASCORBIC ACID 500 MG TABLET PO SCH (08:55)
[2020-02-02] MEDS: CLOPIDOGREL 75 MG TABLET PO SCH (08:56)
[2020-02-02] MEDS: VENLAFAXINE 75 MG TABLET PO SCH (08:56)
[2020-02-02] MEDS: PANTOPRAZOLE 40 MG TABLET PO SCH (08:56)
[2020-02-02] MEDS: GABAPENTIN 100 MG CAPSULE PO SCH ×3 (08:56→21:20)
[2020-02-02] MEDS: ZINC GLUCONATE 50 MG TABLET PO SCH (08:56)
[2020-02-02] MEDS: RIFAXIMIN 550 MG TABLET PO SCH ×2 (08:56→21:20)
[2020-02-02] MEDS: LUBIPROSTONE 24 MCG CAPSULE PO SCH ×2 (08:56→16:30)
[2020-02-02] MEDS: MENTHOL/ZINC OXIDE OINT 71 GM JAR TOP SCH ×2 (08:57→21:20)
[2020-02-02] MEDS: SODIUM BICARBONATE 650 MG TABLET PO SCH ×2 (08:59→21:19)
[2020-02-02] MEDS: OCTREOTIDE 100 MCG/ML SYRINGE SUBCUT SCH ×2 (16:30→21:19)
[2020-02-02] MEDS: MIDODRINE 2.5 MG TABLET PO SCH ×2 (16:30→21:20)
[2020-02-02] MEDS: ALBUMIN 25% 25 GM in PREMIX 1 EACH IV SCH (21:19)
[2020-02-02] MEDS: TAMSULOSIN 0.4 MG CAPSULE PO SCH (21:20)
[2020-02-03] MEDS: cefTRIAXone 2,000 MG in SYRINGE 1 EACH IV SCH (00:29)
[2020-02-03] MEDS: LACTULOSE 20 GM/30 ML UDCUP PO SCH ×6 (00:31→20:46)
[2020-02-03] MEDS: INSULIN LISPRO 100 UNIT/ML SUBCUT SCH ×4 (07:57→20:47)
[2020-02-03 08:49] LABS: Calcium 7.4 MG/DL (8.5-10.1); Osmolality,Calculated 280.8 MOS/KG (273-304)
[2020-02-03] MEDS: ALBUMIN 25% 25 GM in PREMIX 1 EACH IV SCH ×2 (09:34→20:47)
[2020-02-03] MEDS: OCTREOTIDE 100 MCG/ML SYRINGE SUBCUT SCH ×3 (09:34→21:46)
[2020-02-03] MEDS: ASPIRIN 325 MG TABLET PO SCH (09:35)
[2020-02-03] MEDS: ZINC GLUCONATE 50 MG TABLET PO SCH (09:35)
[2020-02-03] MEDS: VENLAFAXINE 75 MG TABLET PO SCH (09:35)
[2020-02-03] MEDS: RIFAXIMIN 550 MG TABLET PO SCH (09:35)
[2020-02-03] MEDS: GABAPENTIN 100 MG CAPSULE PO SCH ×3 (09:35→20:46)
[2020-02-03] MEDS: LUBIPROSTONE 24 MCG CAPSULE PO SCH ×2 (09:36→16:24)
[2020-02-03] MEDS: SODIUM BICARBONATE 650 MG TABLET PO SCH ×2 (09:36→20:46)
[2020-02-03] MEDS: CLOPIDOGREL 75 MG TABLET PO SCH (09:36)
[2020-02-03] MEDS: ASCORBIC ACID 500 MG TABLET PO SCH (09:36)
[2020-02-03] MEDS: PANTOPRAZOLE 40 MG TABLET PO SCH (09:36)
[2020-02-03] MEDS: MIDODRINE 2.5 MG TABLET PO SCH ×3 (09:36→20:47)
[2020-02-03] MEDS: MENTHOL/ZINC OXIDE OINT 71 GM JAR TOP SCH ×2 (09:36→20:53)
[2020-02-03] MEDS: OXYMETAZOLINE 0.05% NASAL SPRAY 15 ML BOTTLE BOTH NARES SCH (20:46)
[2020-02-03] MEDS: TAMSULOSIN 0.4 MG CAPSULE PO SCH (20:47)
[2020-02-04] MEDS: LACTULOSE 20 GM/30 ML UDCUP PO SCH ×6 (00:13→21:11)
[2020-02-04 06:22] LABS: Basophils % 0.5 % (0.0-0.8); Eosinophils # 0.9 10*3/uL (0.0-0.87); Eosinophils % 15.4 % (0.00-10.9); Hematocrit 24.9 VOL% (42.0-52.0); Hemoglobin 8.5 GM/DL (14.0-18.0); Immature Granulocytes % 0.2 %; Immature Granulocytes Absolute 0.01 #; Lymphocytes # 0.6 10*3/uL (1.4-4.0); Lymphocytes % 10.1 % (21.2-54.2); Mean Corpuscular HGB Conc 34.1 GM/DL (32-36); Mean Platelet Volume 10.2 FL (9.6-12.0); Monocytes % 15.4 % (1.7-12.7); Neutrophils % 58.4 % (38.7-73.9); Platelet Count 104 T/CUMM (130-400); Red Blood Count 2.83 MC/CUMM (3.8-5.5); Red Cell Distribution Width 17.4 % (9.3-17.3)
[2020-02-04 06:47] LABS: Albumin 2.3 G/DL (3.4-5.0); Bilirubin,Total 2.3 MG/DL (0.2-1.0); Calcium 7.7 MG/DL (8.5-10.1); Osmolality,Calculated 287.2 MOS/KG (273-304); Total Protein 4.7 G/DL (6.4-8.3)
[2020-02-04 07:04] LABS: Band Neutrophils 2 % (0-10); Eosinophils 22 % (0-10); Hypochromasia 1+; Lymphocytes 8 % (20-55); Microcytosis 1+; Segmented Neutrophils 60 % (50-85); Total Cells Counted 100
[2020-02-04 07:05] LABS: Ovalocytes Slight; Platelet Estimate Decreased
[2020-02-04] MEDS: MENTHOL/ZINC OXIDE OINT 71 GM JAR TOP SCH ×2 (08:48→21:12)
[2020-02-04] MEDS: INSULIN LISPRO 100 UNIT/ML SUBCUT SCH ×4 (08:48→22:17)
[2020-02-04] MEDS: ZINC GLUCONATE 50 MG TABLET PO SCH (08:48)
[2020-02-04] MEDS: OXYMETAZOLINE 0.05% NASAL SPRAY 15 ML BOTTLE BOTH NARES SCH ×2 (08:48→21:12)
[2020-02-04] MEDS: LUBIPROSTONE 24 MCG CAPSULE PO SCH ×2 (08:49→16:17)
[2020-02-04] MEDS: PANTOPRAZOLE 40 MG TABLET PO SCH (08:49)
[2020-02-04] MEDS: ASCORBIC ACID 500 MG TABLET PO SCH (08:49)
[2020-02-04] MEDS: POTASSIUM CHLORIDE 20 MEQ TABLET PO PRN ×2 (08:49→11:50)
[2020-02-04] MEDS: GABAPENTIN 100 MG CAPSULE PO SCH ×3 (08:49→21:11)
[2020-02-04] MEDS: VENLAFAXINE 75 MG TABLET PO SCH (08:49)
[2020-02-04] MEDS: CLOPIDOGREL 75 MG TABLET PO SCH ×2 (08:49→08:54)
[2020-02-04] MEDS: MIDODRINE 2.5 MG TABLET PO SCH ×3 (08:49→21:11)
[2020-02-04] MEDS: ASPIRIN 325 MG TABLET PO SCH ×2 (08:49→08:51)
[2020-02-04] MEDS: SODIUM BICARBONATE 650 MG TABLET PO SCH ×2 (08:49→21:11)
[2020-02-04 08:57] LABS: INR 1.2; PT Patient Result 12.5 SECS (9.8-11.9)
[2020-02-04] MEDS: ALBUMIN 25% 25 GM in PREMIX 1 EACH IV SCH ×2 (09:00→21:12)
[2020-02-04] MEDS: OCTREOTIDE 100 MCG/ML SYRINGE SUBCUT SCH ×3 (09:19→22:26)
[2020-02-04] MEDS ORDERED: SODIUM CHLORIDE 0.9% 1,000 ML IV PRN (16:24)
[2020-02-04] MEDS: TAMSULOSIN 0.4 MG CAPSULE PO SCH (21:12)
[2020-02-05] MEDS: LACTULOSE 20 GM/30 ML UDCUP PO SCH ×7 (00:15→21:29)
[2020-02-05 05:21] LABS: Basophils % 0.5 % (0.0-0.8); Eosinophils # 0.8 10*3/uL (0.0-0.87); Hematocrit 28.6 VOL% (42.0-52.0); Hemoglobin 9.6 GM/DL (14.0-18.0); Immature Granulocytes % 0.2 %; Immature Granulocytes Absolute 0.01 #; Lymphocytes # 0.4 10*3/uL (1.4-4.0); Lymphocytes % 6.6 % (21.2-54.2); Mean Corpuscular HGB Conc 33.6 GM/DL (32-36); Mean Corpuscular Volume 87.5 FL (87-102); Mean Platelet Volume 9.6 FL (9.6-12.0); Monocytes % 10.7 % (1.7-12.7); Platelet Count 112 T/CUMM (130-400); Red Blood Count 3.27 MC/CUMM (3.8-5.5); Red Cell Distribution Width 17.3 % (9.3-17.3); White Blood Count 5.8 T/CUMM (4-12)
[2020-02-05 05:38] LABS: Albumin 2.7 G/DL (3.4-5.0); Bilirubin,Total 1.6 MG/DL (0.2-1.0); Calcium 7.9 MG/DL (8.5-10.1); Osmolality,Calculated 288.1 MOS/KG (273-304); Total Protein 5.2 G/DL (6.4-8.3)
[2020-02-05 05:43] LABS: Band Neutrophils 6 % (0-10); Eosinophils 14 % (0-10); Lymphocytes 7 % (20-55); Segmented Neutrophils 70 % (50-85); Total Cells Counted 100
[2020-02-05 05:44] LABS: Hypochromasia Slight; Microcytosis Slight; Platelet Estimate Decreased
[2020-02-05] MEDS: ZINC GLUCONATE 50 MG TABLET PO SCH (08:08)
[2020-02-05] MEDS: INSULIN LISPRO 100 UNIT/ML SUBCUT SCH ×4 (08:08→21:35)
[2020-02-05] MEDS: VENLAFAXINE 75 MG TABLET PO SCH (08:08)
[2020-02-05] MEDS: ASCORBIC ACID 500 MG TABLET PO SCH (08:08)
[2020-02-05] MEDS: LUBIPROSTONE 24 MCG CAPSULE PO SCH ×2 (08:08→16:33)
[2020-02-05] MEDS: SODIUM BICARBONATE 650 MG TABLET PO SCH ×2 (08:08→21:29)
[2020-02-05] MEDS: POTASSIUM CHLORIDE 20 MEQ TABLET PO PRN (08:08)
[2020-02-05] MEDS: MIDODRINE 2.5 MG TABLET PO SCH ×3 (08:09→22:06)
[2020-02-05] MEDS: PANTOPRAZOLE 40 MG TABLET PO SCH (08:09)
[2020-02-05] MEDS: OXYMETAZOLINE 0.05% NASAL SPRAY 15 ML BOTTLE BOTH NARES SCH ×2 (08:09→21:30)
[2020-02-05] MEDS: MENTHOL/ZINC OXIDE OINT 71 GM JAR TOP SCH ×2 (08:09→21:30)
[2020-02-05] MEDS: GABAPENTIN 100 MG CAPSULE PO SCH ×3 (08:09→21:29)
[2020-02-05] MEDS: OCTREOTIDE 100 MCG/ML SYRINGE SUBCUT SCH ×3 (08:14→21:29)
[2020-02-05] MEDS: ALBUMIN 25% 25 GM in PREMIX 1 EACH IV SCH ×2 (08:14→21:29)
[2020-02-05] MEDS: RIFAXIMIN 550 MG TABLET PO SCH ×2 (13:30→21:35)
[2020-02-05] MEDS ORDERED: POTASSIUM CHLORIDE 20 MEQ TABLET PO ONE (18:21)
[2020-02-05 19:04] LABS: INR 1.4; PT Patient Result 15.1 SECS (9.8-11.9)
[2020-02-05] MEDS: TAMSULOSIN 0.4 MG CAPSULE PO SCH (21:29)
[2020-02-06] MEDS: LACTULOSE 20 GM/30 ML UDCUP PO SCH ×6 (01:08→18:57)
[2020-02-06 05:43] LABS: Basophils % 0.3 % (0.0-0.8); Eosinophils # 0.8 10*3/uL (0.0-0.87); Eosinophils % 10.8 % (0.00-10.9); Hematocrit 26.3 VOL% (42.0-52.0); Hemoglobin 8.8 GM/DL (14.0-18.0); Immature Granulocytes % 1.6 %; Immature Granulocytes Absolute 0.12 #; Lymphocytes # 0.6 10*3/uL (1.4-4.0); Lymphocytes % 7.8 % (21.2-54.2); Mean Corpuscular HGB Conc 33.5 GM/DL (32-36); Monocytes % 11.2 % (1.7-12.7); Neutrophils % 68.3 % (38.7-73.9); Platelet Count 104 T/CUMM (130-400); Red Blood Count 2.99 MC/CUMM (3.8-5.5); White Blood Count 7.4 T/CUMM (4-12)
[2020-02-06 06:03] LABS: Eosinophils 17 % (0-10); Hypochromasia 1+; Lymphocytes 5 % (20-55); Microcytosis 1+; Platelet Estimate Decreased; Segmented Neutrophils 73 % (50-85); Total Cells Counted 100
[2020-02-06 06:28] LABS: Albumin 2.4 G/DL (3.4-5.0); Bilirubin,Total 1.6 MG/DL (0.2-1.0); Calcium 7.9 MG/DL (8.5-10.1); Osmolality,Calculated 297.4 MOS/KG (273-304); Total Protein 4.7 G/DL (6.4-8.3)
[2020-02-06] MEDS: POTASSIUM CHLORIDE 20 MEQ TABLET PO PRN (09:16)
[2020-02-06] MEDS: VENLAFAXINE 75 MG TABLET PO SCH (09:16)
[2020-02-06] MEDS: ZINC GLUCONATE 50 MG TABLET PO SCH (09:16)
[2020-02-06] MEDS: PANTOPRAZOLE 40 MG TABLET PO SCH (09:16)
[2020-02-06] MEDS: GABAPENTIN 100 MG CAPSULE PO SCH ×3 (09:16→22:02)
[2020-02-06] MEDS: RIFAXIMIN 550 MG TABLET PO SCH ×2 (09:16→22:04)
[2020-02-06] MEDS: ASCORBIC ACID 500 MG TABLET PO SCH (09:16)
[2020-02-06] MEDS: SODIUM BICARBONATE 650 MG TABLET PO SCH ×2 (09:17→22:01)
[2020-02-06] MEDS: OXYMETAZOLINE 0.05% NASAL SPRAY 15 ML BOTTLE BOTH NARES SCH (09:17)
[2020-02-06] MEDS: MENTHOL/ZINC OXIDE OINT 71 GM JAR TOP SCH ×2 (09:17→22:03)
[2020-02-06] MEDS: LUBIPROSTONE 24 MCG CAPSULE PO SCH ×2 (09:17→17:27)
[2020-02-06] MEDS: INSULIN LISPRO 100 UNIT/ML SUBCUT SCH ×4 (09:18→22:22)
[2020-02-06] MEDS: ALBUMIN 25% 25 GM in PREMIX 1 EACH IV SCH ×2 (09:30→22:03)
[2020-02-06] MEDS: MIDODRINE 2.5 MG TABLET PO SCH ×3 (09:30→22:02)
[2020-02-06] MEDS: OCTREOTIDE 100 MCG/ML SYRINGE SUBCUT SCH ×3 (10:30→22:02)
[2020-02-06] MEDS ORDERED: TISSUE ADHESIVE 1 EACH APPLICATOR TOP ONE (10:41)
[2020-02-06] MEDS: TAMSULOSIN 0.4 MG CAPSULE PO SCH (22:02)
[2020-02-07] MEDS: LACTULOSE 20 GM/30 ML UDCUP PO SCH ×5 (01:35→17:09)
[2020-02-07 07:49] LABS: Albumin 2.6 G/DL (3.4-5.0); Bilirubin,Total 1.1 MG/DL (0.2-1.0); Calcium 7.6 MG/DL (8.5-10.1); Osmolality,Calculated 288.1 MOS/KG (273-304); Total Protein 4.6 G/DL (6.4-8.3)
[2020-02-07 08:09] LABS: Basophils % 0.4 % (0.0-0.8); Eosinophils # 0.7 10*3/uL (0.0-0.87); Eosinophils % 10.2 % (0.00-10.9); Hematocrit 26.1 VOL% (42.0-52.0); Hemoglobin 8.7 GM/DL (14.0-18.0); Immature Granulocytes % 0.4 %; Immature Granulocytes Absolute 0.03 #; Lymphocytes # 0.6 10*3/uL (1.4-4.0); Lymphocytes % 8.4 % (21.2-54.2); Mean Corpuscular HGB Conc 33.3 GM/DL (32-36); Mean Corpuscular Volume 87.6 FL (87-102); Monocytes % 10.9 % (1.7-12.7); Neutrophils % 69.7 % (38.7-73.9); Platelet Count 103 T/CUMM (130-400); Red Blood Count 2.98 MC/CUMM (3.8-5.5); Red Cell Distribution Width 17.5 % (9.3-17.3); White Blood Count 7.3 T/CUMM (4-12)
[2020-02-07] MEDS ORDERED: POTASSIUM CHLORIDE 20 MEQ TABLET PO ONE (08:25)
[2020-02-07 08:39] LABS: Eosinophils 11 % (0-10); Lymphocytes 7 % (20-55); Segmented Neutrophils 77 % (50-85); Total Cells Counted 100
[2020-02-07 08:40] LABS: Hypochromasia 1+; Microcytosis 1+; Platelet Estimate Decreased
[2020-02-07] MEDS: RIFAXIMIN 550 MG TABLET PO SCH (08:43)
[2020-02-07] MEDS: MIDODRINE 2.5 MG TABLET PO SCH ×2 (08:43→17:09)
[2020-02-07] MEDS: VENLAFAXINE 75 MG TABLET PO SCH (08:43)
[2020-02-07] MEDS: SODIUM BICARBONATE 650 MG TABLET PO SCH (08:43)
[2020-02-07] MEDS: GABAPENTIN 100 MG CAPSULE PO SCH ×2 (08:44→17:09)
[2020-02-07] MEDS: ZINC GLUCONATE 50 MG TABLET PO SCH (08:44)
[2020-02-07] MEDS: PANTOPRAZOLE 40 MG TABLET PO SCH (08:44)
[2020-02-07] MEDS: ASCORBIC ACID 500 MG TABLET PO SCH (08:44)
[2020-02-07] MEDS: LUBIPROSTONE 24 MCG CAPSULE PO SCH ×2 (08:45→17:19)
[2020-02-07] MEDS: INSULIN LISPRO 100 UNIT/ML SUBCUT SCH ×3 (08:45→17:10)
[2020-02-07] MEDS: MENTHOL/ZINC OXIDE OINT 71 GM JAR TOP SCH (08:50)
[2020-02-07] MEDS: ALBUMIN 25% 25 GM in PREMIX 1 EACH IV SCH (08:51)
[2020-02-07] MEDS: OCTREOTIDE 100 MCG/ML SYRINGE SUBCUT SCH ×2 (09:03→17:10)
[2020-02-07 15:45] VITALS: BP 127/83
== END 2020-02-07 18:48 | disposition home health service (06) | DRG 441 ==
LOC: N.ED 18:33 → N.EDINP 18:33 → SUATTDRO 01-27 00:06 → N.EDINP 01-27 01:15 → N.3E 01-27 01:29 → N.TELES 01-28 20:58 → SUATTDRO 01-29 10:13
PROVIDERS: ADMIT Internal Medicine; ATTEND Internal Medicine

== ENCOUNTER 2020-02-14 04:13 | Inpatient (IN) ==
[2020-02-14] MEDS ORDERED: FUROSEMIDE 40 MG/4 ML VIAL IV STA (05:06)
[2020-02-14 06:02] LABS: INR 1.3
[2020-02-14 06:07] LABS: Basophils # 0.1 10*3/uL (0.0-0.2); Basophils % 0.3 % (0.0-0.8); Eosinophils # 0.7 10*3/uL (0.0-0.87); Eosinophils % 4.4 % (0.00-10.9); Hematocrit 35.4 VOL% (42.0-52.0); Hemoglobin 12.1 GM/DL (14.0-18.0); Immature Granulocytes % 0.5 %; Immature Granulocytes Absolute 0.08 #; Lymphocytes # 1.1 10*3/uL (1.4-4.0); Mean Corpuscular HGB Conc 34.2 GM/DL (32-36); Mean Corpuscular Volume 86.1 FL (87-102); Mean Platelet Volume 8.9 FL (9.6-12.0); Monocytes % 9.2 % (1.7-12.7); Neutrophils % 78.6 % (38.7-73.9); Platelet Count 161 T/CUMM (130-400); Red Blood Count 4.11 MC/CUMM (3.8-5.5); Red Cell Distribution Width 17.9 % (9.3-17.3); White Blood Count 15.7 T/CUMM (4-12)
[2020-02-14 06:15] LABS: Barbiturates Screen,Urine Negative (Negative); Benzodiazepines Screen,Urine Negative (Negative); Cannabinoid Screen,Urine Negative (Negative); Opiate Screen,Urine Negative (Negative); Phencyclidine Screen,Urine Negative (Negative)
[2020-02-14 06:28] LABS: Bilirubin,Urine Negative (Negative); Blood, Urine Negative (Negative); Glucose,Urine (UA) Negative (Negative); Hyaline Casts,Urine 50 /LPF (0-3); Ketones,Urine Negative (Negative); Nitrite,Urine Negative (Negative); Protein,Urine Negative; RBC,Urine 41 /HPF (0-4); Urine Appearance CLOUDY (Clear); Urine Color Yellow (Yellow); Urine Specific Gravity 1.009 (1.001-1.035); Urine Urobilinogen < 2.0 EU/DL (0.2-1.0); WBC,Urine 257 /HPF (0-6)
[2020-02-14 06:29] LABS: Alanine Aminotransferase 51 U/L (16-61); Albumin 2.7 G/DL (3.4-5.0); Alkaline Phosphatase 234 U/L (45-117); Amylase 137 U/L (25-115); Aspartate Amino Transferase 66 U/L (0-37); Blood Urea Nitrogen 64 MG/DL (7-18); CKMB % 12.7 %; Calcium 8.1 MG/DL (8.5-10.1); Estimated Glom Filtration Rate 16 ML/MIN; Osmolality,Calculated 300.7 MOS/KG (273-304)
[2020-02-14 06:37] LABS: Glucose 15 MG/DL (74-106)
[2020-02-14] MEDS ORDERED: DEXTROSE 50% 25 GM/50 ML SYRINGE IV ONE ×3 (06:38→11:20)
[2020-02-14] MEDS ORDERED: DEXTROSE 50% 25 GM/50 ML VIAL IV STA ×2 (06:38→07:47)
[2020-02-14] MEDS ORDERED: cefTRIAXone 1,000 MG in SODIUM CHLORIDE 0.9% 100 ML IV STA (06:39)
[2020-02-14] MEDS ORDERED: cefTRIAXone 1,000 MG in SYRINGE 1 EACH IV STA (06:46)
[2020-02-14] MEDS ORDERED: DEXTROSE 5% NACL 0.45% 1,000 ML IV SCH (07:00)
[2020-02-14] MEDS ORDERED: GLUCAGON 1 MG VIAL IM PRN (07:49)
[2020-02-14] MEDS ORDERED: MORPHINE 4 MG/1 ML VIAL IV PRN (07:49)
[2020-02-14] MEDS ORDERED: ONDANSETRON 4 MG/2 ML VIAL IV PRN (07:49)
[2020-02-14] MEDS ORDERED: DEXTROSE 50% 25 GM/50 ML VIAL IV PRN (07:49)
[2020-02-14] MEDS ORDERED: ACETAMINOPHEN 325 MG TABLET PO PRN (07:49)
[2020-02-14] MEDS ORDERED: LACTULOSE 20 GM/30 ML UDCUP PO SCH (08:00)
[2020-02-14] MEDS ORDERED: DEXTROSE 10% 250 ML IV ONE (08:07)
[2020-02-14] MEDS: DEXTROSE 10% 1,000 ML IV SCH (08:11)
[2020-02-14 08:45] LABS: Risk Ratio 3.38; VLDL CHOLESTEROL 15.8 MG/DL
[2020-02-14] MEDS ORDERED: LORazepam 2 MG/1 ML VIAL IV PRN (13:53)
[2020-02-14] MEDS: LACTULOSE 20 GM/30 ML UDCUP PO SCH ×3 (15:30→21:01)
[2020-02-14 18:17] LABS: CKMB % 12.9 %
[2020-02-14 18:19] LABS: Troponin I 0.73 NG/ML (0.00-0.045)
[2020-02-15] MEDS: DEXTROSE 10% 1,000 ML IV SCH ×2 (00:17→08:50)
[2020-02-15] MEDS: LACTULOSE 20 GM/30 ML UDCUP PO SCH ×5 (03:15→19:27)
[2020-02-15 06:26] LABS: Basophils # 0.1 10*3/uL (0.0-0.2); Basophils % 0.7 % (0.0-0.8); Eosinophils # 1.3 10*3/uL (0.0-0.87); Eosinophils % 9.7 % (0.00-10.9); Hematocrit 32.7 VOL% (42.0-52.0); Hemoglobin 11.1 GM/DL (14.0-18.0); Immature Granulocytes % 0.4 %; Immature Granulocytes Absolute 0.06 #; Lymphocytes # 1.1 10*3/uL (1.4-4.0); Lymphocytes % 7.9 % (21.2-54.2); Mean Corpuscular HGB Conc 33.9 GM/DL (32-36); Mean Corpuscular Volume 86.5 FL (87-102); Mean Platelet Volume 9.1 FL (9.6-12.0); Monocytes % 8.7 % (1.7-12.7); Neutrophils % 72.6 % (38.7-73.9); Red Blood Count 3.78 MC/CUMM (3.8-5.5); Red Cell Distribution Width 18.1 % (9.3-17.3); White Blood Count 13.4 T/CUMM (4-12)
[2020-02-15 06:42] LABS: Platelet Count 90 T/CUMM (130-400)
[2020-02-15 06:48] LABS: Albumin 2.2 G/DL (3.4-5.0); Bilirubin,Total 1.4 MG/DL (0.2-1.0); Calcium 7.6 MG/DL (8.5-10.1); Total Protein 5.3 G/DL (6.4-8.3)
[2020-02-15 07:00] LABS: Anisocytosis 2+; Hypochromasia Slight; Platelet Estimate Decreased
[2020-02-15 07:01] LABS: Macrocytosis Slight
[2020-02-15] MEDS: POTASSIUM CHLORIDE 20 MEQ TABLET PO SCH ×5 (07:28→21:53)
[2020-02-15] MEDS: POTASSIUM CHLORIDE RIDER 10 MEQ in PREMIX 1 EACH IV SCH ×2 (07:28→09:33)
[2020-02-15] MEDS: cefTRIAXone 1,000 MG in SYRINGE 1 EACH IV SCH (09:36)
[2020-02-15 16:59] LABS: Calcium 7.5 MG/DL (8.5-10.1); Osmolality,Calculated 309.7 MOS/KG (273-304)
[2020-02-16] MEDS: DEXTROSE 10% 1,000 ML IV SCH (00:23)
[2020-02-16] MEDS: LACTULOSE 20 GM/30 ML UDCUP PO SCH ×7 (00:38→23:03)
[2020-02-16] MEDS: POTASSIUM CHLORIDE 20 MEQ TABLET PO SCH ×2 (02:19→06:09)
[2020-02-16 06:16] LABS: Calcium 7.6 MG/DL (8.5-10.1); Osmolality,Calculated 308.6 MOS/KG (273-304)
[2020-02-16] MEDS ORDERED: POTASSIUM CHLORIDE 20 MEQ TABLET PO ONE (09:46)
[2020-02-16] MEDS ORDERED: LACTULOSE 320 GM/480 ML BOTTLE RECTAL PRN (10:09)
[2020-02-16] MEDS: cefTRIAXone 1,000 MG in SYRINGE 1 EACH IV SCH (10:18)
[2020-02-16] MEDS: RIFAXIMIN 550 MG TABLET PO SCH ×2 (11:32→22:17)
[2020-02-16] MEDS: SODIUM BICARBONATE 650 MG TABLET PO SCH ×2 (11:32→22:16)
[2020-02-16] MEDS: ASPIRIN 325 MG TABLET PO SCH (11:32)
[2020-02-16] MEDS: TAMSULOSIN 0.4 MG CAPSULE PO SCH ×2 (11:32→22:17)
[2020-02-16] MEDS: METOPROLOL TARTRATE 25 MG TABLET PO SCH ×2 (11:32→22:17)
[2020-02-16] MEDS: PANTOPRAZOLE 40 MG TABLET PO SCH (11:32)
[2020-02-16] MEDS: DEXTROSE 5% 1,000 ML IV SCH ×2 (11:33→12:00)
[2020-02-16] MEDS: VENLAFAXINE 75 MG TABLET PO SCH (11:33)
[2020-02-16] MEDS: GABAPENTIN 100 MG CAPSULE PO SCH ×2 (14:45→22:17)
[2020-02-16] MEDS: MIDODRINE 2.5 MG TABLET PO SCH ×2 (14:46→22:16)
[2020-02-17] MEDS: LACTULOSE 20 GM/30 ML UDCUP PO SCH ×5 (03:10→21:23)
[2020-02-17 05:46] LABS: Basophils # 0.1 10*3/uL (0.0-0.2); Basophils % 0.5 % (0.0-0.8); Eosinophils # 1.4 10*3/uL (0.0-0.87); Eosinophils % 10.9 % (0.00-10.9); Hematocrit 31.9 VOL% (42.0-52.0); Hemoglobin 10.8 GM/DL (14.0-18.0); Immature Granulocytes % 0.6 %; Immature Granulocytes Absolute 0.08 #; Lymphocytes % 7.2 % (21.2-54.2); Mean Corpuscular HGB Conc 33.9 GM/DL (32-36); Mean Corpuscular Volume 87.6 FL (87-102); Mean Platelet Volume 9.8 FL (9.6-12.0); Monocytes % 7.1 % (1.7-12.7); Neutrophils % 73.7 % (38.7-73.9); Red Blood Count 3.64 MC/CUMM (3.8-5.5); Red Cell Distribution Width 18.4 % (9.3-17.3); White Blood Count 13.3 T/CUMM (4-12)
[2020-02-17 05:53] LABS: Platelet Count 70 T/CUMM (130-400)
[2020-02-17 06:10] LABS: Hypochromasia 1+; Microcytosis 1+; Platelet Estimate Decreased
[2020-02-17 06:33] LABS: Calcium 7.9 MG/DL (8.5-10.1); Osmolality,Calculated 311.4 MOS/KG (273-304)
[2020-02-17] MEDS: DEXTROSE 10% 1,000 ML IV SCH (07:20)
[2020-02-17] MEDS: ASPIRIN 325 MG TABLET PO SCH (09:23)
[2020-02-17] MEDS: GABAPENTIN 100 MG CAPSULE PO SCH ×3 (09:23→21:23)
[2020-02-17] MEDS: RIFAXIMIN 550 MG TABLET PO SCH ×2 (09:23→21:23)
[2020-02-17] MEDS: MIDODRINE 2.5 MG TABLET PO SCH ×3 (09:23→21:22)
[2020-02-17] MEDS: SODIUM BICARBONATE 650 MG TABLET PO SCH ×2 (09:23→21:23)
[2020-02-17] MEDS: PANTOPRAZOLE 40 MG TABLET PO SCH (09:24)
[2020-02-17] MEDS: TAMSULOSIN 0.4 MG CAPSULE PO SCH ×2 (09:24→21:23)
[2020-02-17] MEDS: METOPROLOL TARTRATE 25 MG TABLET PO SCH ×2 (09:24→21:25)
[2020-02-17] MEDS: VENLAFAXINE 75 MG TABLET PO SCH (09:26)
[2020-02-17] MEDS: cefTRIAXone 1,000 MG in SYRINGE 1 EACH IV SCH (09:26)
[2020-02-17] MEDS: DEXTROSE 5% 1,000 ML IV SCH (18:46)
[2020-02-18] MEDS: LACTULOSE 20 GM/30 ML UDCUP PO SCH ×6 (01:18→21:36)
[2020-02-18 03:40] LABS: Basophils # 0.1 10*3/uL (0.0-0.2); Basophils % 0.7 % (0.0-0.8); Eosinophils # 2.1 10*3/uL (0.0-0.87); Eosinophils % 13.9 % (0.00-10.9); Hematocrit 30.9 VOL% (42.0-52.0); Hemoglobin 10.2 GM/DL (14.0-18.0); Immature Granulocytes % 0.5 %; Immature Granulocytes Absolute 0.08 #; Lymphocytes % 6.7 % (21.2-54.2); Mean Corpuscular Volume 88.5 FL (87-102); Monocytes % 6.7 % (1.7-12.7); Neutrophils % 71.5 % (38.7-73.9); Platelet Count 76 T/CUMM (130-400); Red Blood Count 3.49 MC/CUMM (3.8-5.5); Red Cell Distribution Width 18.5 % (9.3-17.3); White Blood Count 14.9 T/CUMM (4-12)
[2020-02-18] MEDS: DEXTROSE 5% 1,000 ML IV SCH (03:55)
[2020-02-18 04:02] LABS: Eosinophils 16 % (0-10); Hypochromasia Slight; Lymphocytes 3 % (20-55); Platelet Estimate Decreased; Segmented Neutrophils 79 % (50-85); Total Cells Counted 100
[2020-02-18 04:04] LABS: Calcium 7.5 MG/DL (8.5-10.1); Osmolality,Calculated 300.1 MOS/KG (273-304)
[2020-02-18] MEDS: GABAPENTIN 100 MG CAPSULE PO SCH ×3 (09:28→21:36)
[2020-02-18] MEDS: TAMSULOSIN 0.4 MG CAPSULE PO SCH ×2 (09:29→21:36)
[2020-02-18] MEDS: PANTOPRAZOLE 40 MG TABLET PO SCH (09:29)
[2020-02-18] MEDS: MIDODRINE 2.5 MG TABLET PO SCH ×3 (09:29→21:36)
[2020-02-18] MEDS: VENLAFAXINE 75 MG TABLET PO SCH (09:29)
[2020-02-18] MEDS: cefTRIAXone 1,000 MG in SYRINGE 1 EACH IV SCH (09:30)
[2020-02-18] MEDS: ASPIRIN 325 MG TABLET PO SCH (09:30)
[2020-02-18] MEDS: RIFAXIMIN 550 MG TABLET PO SCH ×2 (09:30→21:36)
[2020-02-18] MEDS: SODIUM BICARBONATE 650 MG TABLET PO SCH ×2 (09:30→21:36)
[2020-02-18] MEDS: METOPROLOL TARTRATE 25 MG TABLET PO SCH ×2 (09:30→21:36)
[2020-02-19] MEDS: LACTULOSE 20 GM/30 ML UDCUP PO SCH ×7 (00:52→22:11)
[2020-02-19] MEDS: DEXTROSE 5% 1,000 ML IV SCH (00:52)
[2020-02-19 07:05] LABS: Basophils # 0.1 10*3/uL (0.0-0.2); Basophils % 0.8 % (0.0-0.8); Eosinophils % 12.7 % (0.00-10.9); Hematocrit 30.9 VOL% (42.0-52.0); Hemoglobin 10.4 GM/DL (14.0-18.0); Immature Granulocytes % 0.7 %; Lymphocytes % 6.2 % (21.2-54.2); Mean Corpuscular HGB Conc 33.7 GM/DL (32-36); Monocytes % 6.6 % (1.7-12.7); Red Blood Count 3.51 MC/CUMM (3.8-5.5); Red Cell Distribution Width 17.9 % (9.3-17.3); White Blood Count 15.3 T/CUMM (4-12)
[2020-02-19 07:06] LABS: Platelet Count 99 T/CUMM (130-400)
[2020-02-19 07:25] LABS: Eosinophils 16 % (0-10); Lymphocytes 5 % (20-55); Platelet Estimate Decreased; Segmented Neutrophils 78 % (50-85); Total Cells Counted 100
[2020-02-19 07:26] LABS: Hypochromasia 1+; Microcytosis 1+
[2020-02-19 07:28] LABS: Calcium 7.3 MG/DL (8.5-10.1); Osmolality,Calculated 291.5 MOS/KG (273-304)
[2020-02-19] MEDS: VENLAFAXINE 75 MG TABLET PO SCH (09:09)
[2020-02-19] MEDS: TAMSULOSIN 0.4 MG CAPSULE PO SCH ×2 (09:09→21:20)
[2020-02-19] MEDS: METOPROLOL TARTRATE 25 MG TABLET PO SCH ×2 (09:09→21:20)
[2020-02-19] MEDS: PANTOPRAZOLE 40 MG TABLET PO SCH (09:09)
[2020-02-19] MEDS: ASPIRIN 325 MG TABLET PO SCH (09:09)
[2020-02-19] MEDS: GABAPENTIN 100 MG CAPSULE PO SCH ×3 (09:09→21:20)
[2020-02-19] MEDS: MIDODRINE 2.5 MG TABLET PO SCH ×3 (09:09→21:20)
[2020-02-19] MEDS: SODIUM BICARBONATE 650 MG TABLET PO SCH ×2 (09:09→21:21)
[2020-02-19] MEDS: RIFAXIMIN 550 MG TABLET PO SCH ×2 (09:09→21:21)
[2020-02-19] MEDS: INSULIN LISPRO 100 UNIT/ML SUBCUT SCH ×3 (11:58→21:39)
[2020-02-19] MEDS: DESITIN 4OZ/NYSTATIN 15 GRAM MIXTURE PASTE TOP SCH ×2 (11:58→21:21)
[2020-02-20] MEDS: LACTULOSE 20 GM/30 ML UDCUP PO SCH ×3 (02:48→12:12)
[2020-02-20 05:20] LABS: Basophils # 0.1 10*3/uL (0.0-0.2); Basophils % 0.7 % (0.0-0.8); Eosinophils % 6.2 % (0.00-10.9); Hematocrit 32.1 VOL% (42.0-52.0); Hemoglobin 10.7 GM/DL (14.0-18.0); Immature Granulocytes % 0.7 %; Immature Granulocytes Absolute 0.12 #; Lymphocytes # 0.8 10*3/uL (1.4-4.0); Lymphocytes % 4.7 % (21.2-54.2); Mean Corpuscular HGB Conc 33.3 GM/DL (32-36); Mean Corpuscular Volume 88.2 FL (87-102); Mean Platelet Volume 11.1 FL (9.6-12.0); Monocytes % 5.9 % (1.7-12.7); Neutrophils % 81.8 % (38.7-73.9); Red Blood Count 3.64 MC/CUMM (3.8-5.5); Red Cell Distribution Width 17.6 % (9.3-17.3); White Blood Count 16.6 T/CUMM (4-12)
[2020-02-20 05:24] LABS: Platelet Count 82 T/CUMM (130-400)
[2020-02-20 05:41] LABS: Calcium 7.6 MG/DL (8.5-10.1); Osmolality,Calculated 292.5 MOS/KG (273-304)
[2020-02-20 05:47] LABS: Eosinophils 6 % (0-10); Lymphocytes 4 % (20-55); Platelet Estimate Decreased; Segmented Neutrophils 85 % (50-85); Total Cells Counted 100
[2020-02-20 05:48] LABS: Hypochromasia Slight; Microcytosis Slight
[2020-02-20] MEDS: VENLAFAXINE 75 MG TABLET PO SCH (09:27)
[2020-02-20] MEDS: GABAPENTIN 100 MG CAPSULE PO SCH (09:27)
[2020-02-20] MEDS: RIFAXIMIN 550 MG TABLET PO SCH (09:27)
[2020-02-20] MEDS: INSULIN LISPRO 100 UNIT/ML SUBCUT SCH ×2 (09:27→12:11)
[2020-02-20] MEDS: ASPIRIN 325 MG TABLET PO SCH (09:28)
[2020-02-20] MEDS: DESITIN 4OZ/NYSTATIN 15 GRAM MIXTURE PASTE TOP SCH (09:28)
[2020-02-20] MEDS: SODIUM BICARBONATE 650 MG TABLET PO SCH (09:28)
[2020-02-20] MEDS: METOPROLOL TARTRATE 25 MG TABLET PO SCH (09:28)
[2020-02-20] MEDS: MIDODRINE 2.5 MG TABLET PO SCH (09:28)
[2020-02-20] MEDS: PANTOPRAZOLE 40 MG TABLET PO SCH (09:28)
[2020-02-20] MEDS: TAMSULOSIN 0.4 MG CAPSULE PO SCH (09:28)
[2020-02-20] MEDS: POTASSIUM CHLORIDE 20 MEQ TABLET PO PRN ×2 (10:14→12:12)
[2020-02-20 11:57] VITALS: BP 100/65
== END 2020-02-20 13:39 | disposition home or self-care (01) | DRG 432 ==
LOC: N.ED 04:13 → N.EDINP 07:49 → SUATTDRO 07:49 → N.EDINP 12:05 → N.ICU 12:30 → N.CVR 19:08 → N.5E 02-15 16:13
PROVIDERS: ADMIT Internal Medicine; ATTEND Internal Medicine

== ENCOUNTER 2020-03-09 07:48 | Inpatient (IN) ==
[2020-03-09 08:17] LABS: Basophils % 0.6 % (0.0-0.8); Eosinophils # 0.4 10*3/uL (0.0-0.87); Eosinophils % 7.6 % (0.00-10.9); Hematocrit 25.4 VOL% (42.0-52.0); Hemoglobin 8.8 GM/DL (14.0-18.0); Immature Granulocytes % 0.8 %; Immature Granulocytes Absolute 0.04 #; Lymphocytes # 0.7 10*3/uL (1.4-4.0); Lymphocytes % 14.8 % (21.2-54.2); Mean Corpuscular HGB Conc 34.6 GM/DL (32-36); Mean Corpuscular Volume 83.3 FL (87-102); Monocytes % 9.7 % (1.7-12.7); Neutrophils % 66.5 % (38.7-73.9); Platelet Count 108 T/CUMM (130-400); Red Blood Count 3.05 MC/CUMM (3.8-5.5); Red Cell Distribution Width 16.7 % (9.3-17.3); White Blood Count 4.9 T/CUMM (4-12)
[2020-03-09 08:33] LABS: INR 1.4; PT Patient Result 14.5 SECS (9.8-11.9)
[2020-03-09 08:37] LABS: Partial Thromboplastin Time 50.2 SECS (23.9-33.8)
[2020-03-09 08:44] LABS: Albumin 1.5 G/DL (3.4-5.0); Bilirubin,Total 1.1 MG/DL (0.2-1.0); Calcium 7.4 MG/DL (8.5-10.1); Osmolality,Calculated 308.1 MOS/KG (273-304)
[2020-03-09 08:52] LABS: Bacteria,Urine Few /HPF (Few); Bilirubin,Urine Negative (Negative); Blood, Urine Negative (Negative); Glucose,Urine (UA) Negative (Negative); Hyaline Casts,Urine 3 /LPF (0-3); Ketones,Urine Negative (Negative); Mucus,Urine Occasional /LPF (Occasional); Nitrite,Urine Negative (Negative); Protein,Urine Negative; RBC,Urine 2 /HPF (0-4); Sperm,Urine Few /HPF (Negative); Squamous Epithelial Cell,Urine Occasional /HPF (0-10); Urine Appearance CLEAR (Clear); Urine Color Yellow (Yellow); Urine Specific Gravity 1.011 (1.001-1.035); Urine Urobilinogen < 2.0 EU/DL (0.2-1.0); WBC,Urine 12 /HPF (0-6)
[2020-03-09] MEDS ORDERED: SODIUM CHLORIDE 0.9% 500 ML IV STA (09:01)
[2020-03-09] MEDS ORDERED: cefTRIAXone 2,000 MG in SODIUM CHLORIDE 0.9% 100 ML IV ONE (09:19)
[2020-03-09] MEDS ORDERED: cefTRIAXone 1,000 MG VIAL ONE (09:24)
[2020-03-09] MEDS ORDERED: ONDANSETRON 4 MG/2 ML VIAL IV PRN (10:46)
[2020-03-09] MEDS ORDERED: GLUCAGON 1 MG VIAL IM PRN (10:46)
[2020-03-09] MEDS ORDERED: DEXTROSE 50% 25 GM/50 ML VIAL IV PRN (10:57)
[2020-03-09 11:46] LABS: Band Neutrophils 1 % (0-10); Eosinophils 5 % (0-10); Lymphocytes 8 % (20-55); Segmented Neutrophils 78 % (50-85); Total Cells Counted 100
[2020-03-09 11:47] LABS: Hypochromasia 3+; Microcytosis 1+; Platelet Estimate Adequate; Polychromasia Slight
[2020-03-09] MEDS: LACTULOSE 320 GM/480 ML BOTTLE RECTAL SCH ×3 (13:20→22:05)
[2020-03-09] MEDS: INSULIN REGULAR 100 UNIT/ML SUBCUT SCH ×2 (13:52→18:38)
[2020-03-09] MEDS: MIDODRINE 2.5 MG TABLET PO SCH ×2 (18:38→20:07)
[2020-03-09] MEDS: TAMSULOSIN 0.4 MG CAPSULE PO SCH (20:07)
[2020-03-09] MEDS: RIFAXIMIN 550 MG TABLET PO SCH (20:09)
[2020-03-10] MEDS: DEXTROSE 50% 25 GM/50 ML VIAL IV PRN ×3 (01:10→13:17)
[2020-03-10] MEDS: INSULIN REGULAR 100 UNIT/ML SUBCUT SCH ×4 (01:11→17:14)
[2020-03-10] MEDS: LACTULOSE 320 GM/480 ML BOTTLE RECTAL SCH ×2 (04:35→12:36)
[2020-03-10 06:14] LABS: Basophils # 0.1 10*3/uL (0.0-0.2); Basophils % 0.7 % (0.0-0.8); Eosinophils # 0.4 10*3/uL (0.0-0.87); Eosinophils % 4.6 % (0.00-10.9); Hematocrit 26.5 VOL% (42.0-52.0); Hemoglobin 9.2 GM/DL (14.0-18.0); Immature Granulocytes % 0.6 %; Immature Granulocytes Absolute 0.05 #; Lymphocytes % 11.3 % (21.2-54.2); Mean Corpuscular HGB Conc 34.7 GM/DL (32-36); Mean Corpuscular Volume 83.6 FL (87-102); Monocytes % 7.8 % (1.7-12.7); Platelet Count 133 T/CUMM (130-400); Red Blood Count 3.17 MC/CUMM (3.8-5.5); Red Cell Distribution Width 16.8 % (9.3-17.3); White Blood Count 9.1 T/CUMM (4-12)
[2020-03-10 07:00] LABS: Albumin 1.4 G/DL (3.4-5.0); Bilirubin,Total 1.6 MG/DL (0.2-1.0); Calcium 7.6 MG/DL (8.5-10.1); Osmolality,Calculated 307.8 MOS/KG (273-304); Total Protein 4.4 G/DL (6.4-8.3)
[2020-03-10] MEDS: POTASSIUM CHLORIDE RIDER 10 MEQ in PREMIX 1 EACH IV PRN ×5 (07:31→11:25)
[2020-03-10] MEDS: RIFAXIMIN 550 MG TABLET PO SCH ×2 (09:29→21:41)
[2020-03-10] MEDS: MIDODRINE 2.5 MG TABLET PO SCH ×3 (09:29→21:41)
[2020-03-10] MEDS: TAMSULOSIN 0.4 MG CAPSULE PO SCH ×2 (09:29→21:41)
[2020-03-10] MEDS: DEXTROSE 5% 1,000 ML IV SCH (09:33)
[2020-03-10] MEDS: LACTULOSE 20 GM/30 ML UDCUP PO SCH ×2 (13:17→17:20)
[2020-03-11] MEDS: LACTULOSE 20 GM/30 ML UDCUP PO SCH ×6 (00:11→22:06)
[2020-03-11] MEDS: INSULIN REGULAR 100 UNIT/ML SUBCUT SCH ×3 (00:18→11:58)
[2020-03-11] MEDS: DEXTROSE 5% 1,000 ML IV SCH ×2 (03:27→09:47)
[2020-03-11 05:04] LABS: Basophils # 0.1 10*3/uL (0.0-0.2); Basophils % 0.6 % (0.0-0.8); Eosinophils # 0.4 10*3/uL (0.0-0.87); Hematocrit 26.1 VOL% (42.0-52.0); Immature Granulocytes % 0.6 %; Immature Granulocytes Absolute 0.07 #; Lymphocytes # 1.7 10*3/uL (1.4-4.0); Lymphocytes % 13.3 % (21.2-54.2); Mean Corpuscular HGB Conc 34.5 GM/DL (32-36); Mean Corpuscular Volume 84.5 FL (87-102); Mean Platelet Volume 10.3 FL (9.6-12.0); Monocytes % 13.2 % (1.7-12.7); Neutrophils % 69.3 % (38.7-73.9); Platelet Count 129 T/CUMM (130-400); Red Blood Count 3.09 MC/CUMM (3.8-5.5); Red Cell Distribution Width 17.1 % (9.3-17.3); White Blood Count 12.5 T/CUMM (4-12)
[2020-03-11 05:26] LABS: Calcium 7.6 MG/DL (8.5-10.1); Osmolality,Calculated 305.8 MOS/KG (273-304); Potassium 3.6 MMOL/L (3.5-5.1)
[2020-03-11] MEDS: RIFAXIMIN 550 MG TABLET PO SCH ×2 (08:40→22:06)
[2020-03-11] MEDS: MIDODRINE 2.5 MG TABLET PO SCH ×3 (08:41→22:06)
[2020-03-11] MEDS: TAMSULOSIN 0.4 MG CAPSULE PO SCH ×2 (08:41→22:06)
[2020-03-11] MEDS ORDERED: ALBUMIN 25% 12.5 GM in PREMIX 1 EACH IV ONE (10:49)
[2020-03-11] MEDS ORDERED: ALBUMIN 25% 12.5 GM/50 ML VIAL IV ONE (10:51)
[2020-03-11 11:38] LABS: Neutrophils,Peritoneal Fluid 14 %; RBC,Peritoneal Fluid 180 T/CUMM
[2020-03-11] MEDS: OCTREOTIDE 100 MCG/ML SYRINGE SUBCUT SCH (22:06)
[2020-03-12] MEDS: LACTULOSE 20 GM/30 ML UDCUP PO SCH ×4 (02:28→21:29)
[2020-03-12 06:51] LABS: Basophils # 0.1 10*3/uL (0.0-0.2); Basophils % 0.9 % (0.0-0.8); Eosinophils # 0.4 10*3/uL (0.0-0.87); Eosinophils % 5.1 % (0.00-10.9); Hematocrit 24.8 VOL% (42.0-52.0); Hemoglobin 8.3 GM/DL (14.0-18.0); Immature Granulocytes % 0.6 %; Immature Granulocytes Absolute 0.05 #; Lymphocytes % 13.3 % (21.2-54.2); Mean Corpuscular HGB Conc 33.5 GM/DL (32-36); Mean Corpuscular Volume 85.8 FL (87-102); Mean Platelet Volume 10.3 FL (9.6-12.0); Monocytes % 12.8 % (1.7-12.7); Neutrophils % 67.3 % (38.7-73.9); Red Blood Count 2.89 MC/CUMM (3.8-5.5); Red Cell Distribution Width 17.2 % (9.3-17.3)
[2020-03-12 06:52] LABS: Platelet Count 83 T/CUMM (130-400); White Blood Count 7.8 T/CUMM (4-12)
[2020-03-12 06:53] LABS: Calcium 7.6 MG/DL (8.5-10.1); Potassium 3.8 MMOL/L (3.5-5.1)
[2020-03-12 06:59] LABS: Eosinophils 5 % (0-10); Hypochromasia 1+; Lymphocytes 10 % (20-55); Microcytosis 1+; Ovalocytes Slight; Platelet Estimate Decreased; Segmented Neutrophils 80 % (50-85); Total Cells Counted 100
[2020-03-12] MEDS ORDERED: LACTULOSE 20 GM/30 ML UDCUP PO SCH ×2 (09:12→18:00)
[2020-03-12] MEDS ORDERED: ALBUMIN 25% 50 GM in PREMIX 1 EACH IV ONE (09:19)
[2020-03-12] MEDS: TAMSULOSIN 0.4 MG CAPSULE PO SCH ×2 (11:40→20:48)
[2020-03-12] MEDS: MIDODRINE 2.5 MG TABLET PO SCH ×3 (11:40→20:48)
[2020-03-12] MEDS: RIFAXIMIN 550 MG TABLET PO SCH ×2 (11:40→20:48)
[2020-03-12] MEDS: MENTHOL/ZINC OXIDE OINT 71 GM JAR TOP SCH ×2 (11:42→20:49)
[2020-03-12] MEDS: OCTREOTIDE 100 MCG/ML SYRINGE SUBCUT SCH ×3 (12:25→20:48)
[2020-03-12] MEDS ORDERED: CEFUROXIME 250 MG TABLET PO SCH (21:00)
[2020-03-12] MEDS ORDERED: CEFUROXIME 250 MG TABLET NG SCH (21:00)
[2020-03-13] MEDS: LACTULOSE 20 GM/30 ML UDCUP PO SCH ×6 (01:24→21:07)
[2020-03-13 08:06] LABS: Basophils # 0.1 10*3/uL (0.0-0.2); Basophils % 0.8 % (0.0-0.8); Eosinophils # 0.9 10*3/uL (0.0-0.87); Eosinophils % 9.8 % (0.00-10.9); Hematocrit 26.3 VOL% (42.0-52.0); Hemoglobin 8.7 GM/DL (14.0-18.0); Immature Granulocytes % 0.4 %; Immature Granulocytes Absolute 0.04 #; Lymphocytes # 0.9 10*3/uL (1.4-4.0); Lymphocytes % 9.9 % (21.2-54.2); Mean Corpuscular HGB Conc 33.1 GM/DL (32-36); Mean Corpuscular Volume 86.5 FL (87-102); Mean Platelet Volume 9.6 FL (9.6-12.0); Monocytes % 12.9 % (1.7-12.7); Neutrophils % 66.2 % (38.7-73.9); Red Blood Count 3.04 MC/CUMM (3.8-5.5); Red Cell Distribution Width 16.7 % (9.3-17.3); White Blood Count 9.5 T/CUMM (4-12)
[2020-03-13 08:07] LABS: Platelet Count 88 T/CUMM (130-400)
[2020-03-13 08:25] LABS: Hypochromasia 1+
[2020-03-13 08:26] LABS: Microcytosis 1+; Ovalocytes Slight; Platelet Estimate Decreased; Tear Drop Cells Slight
[2020-03-13 08:31] LABS: Bilirubin,Total 1.7 MG/DL (0.2-1.0); Calcium 7.7 MG/DL (8.5-10.1); Osmolality,Calculated 304.7 MOS/KG (273-304); Potassium 3.8 MMOL/L (3.5-5.1); Total Protein 4.7 G/DL (6.4-8.3)
[2020-03-13] MEDS: hydrOXYzine HCL 25 MG TABLET PO PRN (09:48)
[2020-03-13] MEDS: MIDODRINE 2.5 MG TABLET PO SCH ×3 (09:49→20:29)
[2020-03-13] MEDS: RIFAXIMIN 550 MG TABLET PO SCH ×2 (09:49→20:29)
[2020-03-13] MEDS: TAMSULOSIN 0.4 MG CAPSULE PO SCH ×2 (09:49→20:29)
[2020-03-13] MEDS: MENTHOL/ZINC OXIDE OINT 71 GM JAR TOP SCH ×2 (09:50→20:29)
[2020-03-13] MEDS: OCTREOTIDE 100 MCG/ML SYRINGE SUBCUT SCH ×3 (09:51→20:29)
[2020-03-13] MEDS: CEFUROXIME 250 MG TABLET PO SCH ×2 (10:00→20:29)
[2020-03-14] MEDS: LACTULOSE 20 GM/30 ML UDCUP PO SCH ×6 (01:28→21:41)
[2020-03-14 05:46] LABS: Basophils # 0.1 10*3/uL (0.0-0.2); Basophils % 0.7 % (0.0-0.8); Eosinophils # 1.1 10*3/uL (0.0-0.87); Eosinophils % 10.1 % (0.00-10.9); Hematocrit 28.4 VOL% (42.0-52.0); Hemoglobin 9.5 GM/DL (14.0-18.0); Immature Granulocytes % 0.4 %; Immature Granulocytes Absolute 0.05 #; Lymphocytes # 1.1 10*3/uL (1.4-4.0); Lymphocytes % 9.9 % (21.2-54.2); Mean Corpuscular HGB Conc 33.5 GM/DL (32-36); Mean Corpuscular Volume 85.5 FL (87-102); Mean Platelet Volume 10.4 FL (9.6-12.0); Monocytes % 11.6 % (1.7-12.7); Neutrophils % 67.3 % (38.7-73.9); Platelet Count 105 T/CUMM (130-400); Red Blood Count 3.32 MC/CUMM (3.8-5.5); Red Cell Distribution Width 16.7 % (9.3-17.3); White Blood Count 11.3 T/CUMM (4-12)
[2020-03-14 06:12] LABS: Albumin 1.6 G/DL (3.4-5.0); Bilirubin,Total 1.8 MG/DL (0.2-1.0); Calcium 7.5 MG/DL (8.5-10.1); Osmolality,Calculated 302.5 MOS/KG (273-304); Potassium 4.1 MMOL/L (3.5-5.1); Total Protein 4.4 G/DL (6.4-8.3)
[2020-03-14] MEDS: MENTHOL/ZINC OXIDE OINT 71 GM JAR TOP SCH ×2 (09:30→20:47)
[2020-03-14] MEDS: CEFUROXIME 250 MG TABLET PO SCH ×2 (09:31→20:46)
[2020-03-14] MEDS: MIDODRINE 2.5 MG TABLET PO SCH ×3 (09:31→21:42)
[2020-03-14] MEDS: TAMSULOSIN 0.4 MG CAPSULE PO SCH ×2 (09:31→20:46)
[2020-03-14] MEDS: RIFAXIMIN 550 MG TABLET PO SCH ×2 (09:31→20:46)
[2020-03-14] MEDS: OCTREOTIDE 100 MCG/ML SYRINGE SUBCUT SCH ×3 (09:32→20:47)
[2020-03-14] MEDS: POLYETHYLENE GLYCOL POWDER 17 GM PACK PO SCH ×3 (15:24→20:47)
[2020-03-15] MEDS: LACTULOSE 20 GM/30 ML UDCUP PO SCH ×6 (01:37→21:55)
[2020-03-15 05:43] LABS: Basophils # 0.1 10*3/uL (0.0-0.2); Basophils % 0.7 % (0.0-0.8); Hematocrit 31.3 VOL% (42.0-52.0); Hemoglobin 10.5 GM/DL (14.0-18.0); Immature Granulocytes % 0.6 %; Lymphocytes # 1.3 10*3/uL (1.4-4.0); Lymphocytes % 7.8 % (21.2-54.2); Mean Corpuscular HGB Conc 33.5 GM/DL (32-36); Mean Corpuscular Volume 87.2 FL (87-102); Mean Platelet Volume 10.2 FL (9.6-12.0); Monocytes % 8.5 % (1.7-12.7); Neutrophils % 76.4 % (38.7-73.9); Platelet Count 114 T/CUMM (130-400); Red Blood Count 3.59 MC/CUMM (3.8-5.5); White Blood Count 16.7 T/CUMM (4-12)
[2020-03-15 06:00] LABS: Albumin 1.9 G/DL (3.4-5.0); Bilirubin,Total 2.3 MG/DL (0.2-1.0); Calcium 7.9 MG/DL (8.5-10.1); Osmolality,Calculated 302.5 MOS/KG (273-304); Potassium 4.3 MMOL/L (3.5-5.1); Total Protein 4.9 G/DL (6.4-8.3)
[2020-03-15] MEDS: POLYETHYLENE GLYCOL POWDER 17 GM PACK PO SCH ×4 (09:27→21:54)
[2020-03-15] MEDS: OCTREOTIDE 100 MCG/ML SYRINGE SUBCUT SCH ×3 (09:28→21:54)
[2020-03-15] MEDS: RIFAXIMIN 550 MG TABLET PO SCH ×2 (09:28→21:55)
[2020-03-15] MEDS: TAMSULOSIN 0.4 MG CAPSULE PO SCH ×2 (09:28→21:54)
[2020-03-15] MEDS: MENTHOL/ZINC OXIDE OINT 71 GM JAR TOP SCH ×2 (09:28→21:54)
[2020-03-15] MEDS: MIDODRINE 2.5 MG TABLET PO SCH ×3 (09:28→21:54)
[2020-03-15] MEDS: AMOXICILLIN/CLAV 500 MG TABLET PO SCH ×2 (10:09→21:54)
[2020-03-15] MEDS: CEFUROXIME 250 MG TABLET PO SCH (10:18)
[2020-03-15 19:46] LABS: Bilirubin,Urine Negative (Negative); Blood, Urine Small mg/dL (Negative); Glucose,Urine (UA) Negative (Negative); Hyaline Casts,Urine 9 /LPF (0-3); Ketones,Urine Negative (Negative); Mucus,Urine Occasional /LPF (Occasional); Nitrite,Urine Negative (Negative); Protein,Urine Negative; RBC,Urine 43 /HPF (0-4); Urine Appearance CLOUDY (Clear); Urine Color Amber (Yellow); Urine Specific Gravity 1.014 (1.001-1.035); Urine Urobilinogen < 2.0 EU/DL (0.2-1.0); WBC,Urine 887 /HPF (0-6)
[2020-03-16] MEDS: LACTULOSE 20 GM/30 ML UDCUP PO SCH ×6 (02:38→23:05)
[2020-03-16 05:50] LABS: Basophils # 0.1 10*3/uL (0.0-0.2); Basophils % 0.6 % (0.0-0.8); Eosinophils # 1.2 10*3/uL (0.0-0.87); Eosinophils % 11.7 % (0.00-10.9); Hematocrit 27.9 VOL% (42.0-52.0); Hemoglobin 9.2 GM/DL (14.0-18.0); Immature Granulocytes % 0.3 %; Immature Granulocytes Absolute 0.03 #; Lymphocytes % 10.4 % (21.2-54.2); Mean Corpuscular Volume 87.7 FL (87-102); Mean Platelet Volume 10.2 FL (9.6-12.0); Monocytes % 11.2 % (1.7-12.7); Neutrophils % 65.8 % (38.7-73.9); Platelet Count 108 T/CUMM (130-400); Red Blood Count 3.18 MC/CUMM (3.8-5.5); Red Cell Distribution Width 17.1 % (9.3-17.3); White Blood Count 9.9 T/CUMM (4-12)
[2020-03-16 06:11] LABS: Calcium 7.8 MG/DL (8.5-10.1); Osmolality,Calculated 309.3 MOS/KG (273-304); Potassium 4.1 MMOL/L (3.5-5.1)
[2020-03-16 06:43] LABS: Eosinophils 15 % (0-10); Hypochromasia 1+; Lymphocytes 9 % (20-55); Microcytosis 1+; Nucleated Red Blood Cells 1 (0-5); Ovalocytes Slight; Platelet Estimate Decreased; Segmented Neutrophils 70 % (50-85); Total Cells Counted 100
[2020-03-16] MEDS: AMOXICILLIN/CLAV 500 MG TABLET PO SCH ×2 (10:28→21:50)
[2020-03-16] MEDS: RIFAXIMIN 550 MG TABLET PO SCH ×2 (10:28→21:50)
[2020-03-16] MEDS: MIDODRINE 2.5 MG TABLET PO SCH ×3 (10:29→21:50)
[2020-03-16] MEDS: MENTHOL/ZINC OXIDE OINT 71 GM JAR TOP SCH ×2 (10:29→21:27)
[2020-03-16] MEDS: OCTREOTIDE 100 MCG/ML SYRINGE SUBCUT SCH ×3 (10:29→23:04)
[2020-03-16] MEDS: TAMSULOSIN 0.4 MG CAPSULE PO SCH ×2 (10:29→21:50)
[2020-03-16] MEDS: POLYETHYLENE GLYCOL POWDER 17 GM PACK PO SCH ×2 (11:16→23:04)
[2020-03-16] MEDS: LINACLOTIDE 145 MCG CAPSULE PO SCH (14:19)
[2020-03-16] MEDS: METOCLOPRAMIDE 10 MG/2 ML VIAL IV SCH ×2 (15:07→18:02)
[2020-03-17] MEDS: METOCLOPRAMIDE 10 MG/2 ML VIAL IV SCH ×2 (01:39→07:50)
[2020-03-17] MEDS: LACTULOSE 20 GM/30 ML UDCUP PO SCH ×6 (01:48→21:28)
[2020-03-17 06:42] LABS: Basophils # 0.1 10*3/uL (0.0-0.2); Basophils % 0.7 % (0.0-0.8); Eosinophils # 0.9 10*3/uL (0.0-0.87); Eosinophils % 11.3 % (0.00-10.9); Hematocrit 26.4 VOL% (42.0-52.0); Hemoglobin 8.6 GM/DL (14.0-18.0); Immature Granulocytes % 0.4 %; Immature Granulocytes Absolute 0.03 #; Lymphocytes % 12.3 % (21.2-54.2); Mean Corpuscular HGB Conc 32.6 GM/DL (32-36); Mean Corpuscular Volume 87.1 FL (87-102); Mean Platelet Volume 9.7 FL (9.6-12.0); Monocytes % 11.1 % (1.7-12.7); Neutrophils % 64.2 % (38.7-73.9); Platelet Count 106 T/CUMM (130-400); Red Blood Count 3.03 MC/CUMM (3.8-5.5); Red Cell Distribution Width 17.2 % (9.3-17.3); White Blood Count 8.2 T/CUMM (4-12)
[2020-03-17 07:05] LABS: Eosinophils 9 % (0-10); Hypochromasia 1+; Lymphocytes 10 % (20-55); Microcytosis 1+; Ovalocytes Slight; Platelet Estimate Decreased; Segmented Neutrophils 77 % (50-85); Total Cells Counted 100
[2020-03-17] MEDS ORDERED: MIDODRINE 2.5 MG TABLET PO ONE (09:00)
[2020-03-17] MEDS: POLYETHYLENE GLYCOL POWDER 17 GM PACK PO SCH ×2 (09:31→21:27)
[2020-03-17] MEDS: AMOXICILLIN/CLAV 500 MG TABLET PO SCH ×2 (09:32→21:26)
[2020-03-17] MEDS: LINACLOTIDE 145 MCG CAPSULE PO SCH (09:32)
[2020-03-17] MEDS: TAMSULOSIN 0.4 MG CAPSULE PO SCH ×2 (09:32→21:27)
[2020-03-17] MEDS: OCTREOTIDE 100 MCG/ML SYRINGE SUBCUT SCH ×3 (09:34→21:27)
[2020-03-17] MEDS: MENTHOL/ZINC OXIDE OINT 71 GM JAR TOP SCH ×2 (09:40→21:26)
[2020-03-17] MEDS: MIDODRINE 2.5 MG TABLET PO SCH ×3 (09:58→21:27)
[2020-03-17] MEDS ORDERED: MIDODRINE 5 MG TABLET PO ONE (10:00)
[2020-03-18] MEDS: hydrOXYzine HCL 25 MG TABLET PO PRN (02:20)
[2020-03-18] MEDS: LACTULOSE 20 GM/30 ML UDCUP PO SCH ×3 (02:33→09:04)
[2020-03-18] MEDS: LINACLOTIDE 145 MCG CAPSULE PO SCH (07:38)
[2020-03-18] MEDS: POLYETHYLENE GLYCOL POWDER 17 GM PACK PO SCH (09:04)
[2020-03-18] MEDS: TAMSULOSIN 0.4 MG CAPSULE PO SCH (09:04)
[2020-03-18] MEDS: AMOXICILLIN/CLAV 500 MG TABLET PO SCH (09:05)
[2020-03-18] MEDS: MIDODRINE 2.5 MG TABLET PO SCH (09:05)
[2020-03-18] MEDS: MENTHOL/ZINC OXIDE OINT 71 GM JAR TOP SCH (09:05)
[2020-03-18] MEDS: OCTREOTIDE 100 MCG/ML SYRINGE SUBCUT SCH (11:27)
[2020-03-18 12:15] VITALS: BP 106/64
== END 2020-03-18 13:17 | disposition hospice, home (50) | DRG 432 ==
LOC: N.ED 07:48 → N.EDINP 10:46 → SUATTDRO 10:46 → N.TELES 17:05
PROVIDERS: ADMIT Internal Medicine; ATTEND Internal Medicine